=== PATIENT | male | born 1965 | race Caucasian/White ===

== ENCOUNTER 2016-07-15 14:17 | Emergency (ER) | payer OTHER ==
[~2016-07-15] VITALS: Ht 172.7 cm; Wt 81.6 kg
[~2016-07-15 14:17] MED LIST: ATIVAN1 MG PO; ATORVASTATIN CA40 MG PO; ATORVASTATIN CA80 M1 PO; ATORVASTATIN CA80 MG PO; BUPROPION HCL150 M2 PO; BUPROPION HYDR150 M1; BUPROPION HYDR150 M2 PO; CELEXA10 M1 PO; CHILDREN'S ASPI81 M1 PO; FLOMAX(MONOGRA0.4 MG PO; FOLIC ACID 1 MG PO; FOLIC ACID 1MG (1 MG; FOLIC ACID1 M1 PO; GABAPENTIN100 M2 PO; IBUPROFEN600 M1 PO; LABETALOL HYDR100 MG; LABETALOL HYDR100 MG PO; LIBRIUM10 MG PO; LIDODERM 5% PAT1 PAT EXT; LISINOPRIL10 MG PO; LISINOPRIL40 MG; LISINOPRIL40 MG PO; LORAZEPAM0.5 MG; LYRICA75 MG PO; MAG-OX 400400 MG PO; MELATONIN3 M4 PO; METOPROLOL SUCC25 M1 PO; NAPROSYN 500 M500 MG PO; NICODERM C21 MG/24 H TOP; NICODERM C7 MG/24 HR EXT; NICOTINE PATCH1 EAC3 TOP; NICOTINE T14 MG/24 H; ONE DAILY MULT1 EAC2 PO; PERCOCET 325 MG1 TA2 PO; PLAVIX 75MG TAB75 MG PO; PROAIR HFA0.09 MG/Ac INH; SPIRIVA 18 MCG18 MCG; SPIRIVA1 PUF INH; TRANDATE-NORMO200 MG PO; TYLENOL TAB 32325 MG PO; Theragran Vitamins PO; ULTRAM50 M1 PO; VITAMIN B-1100 MG PO; VITAMIN B1100 MG PO; XARELTO15 MG PO
--- NOTE | 2016-07-15 15:06 | ED PSYCHIATRIC COMPLAINT ---
History of Present Illness General Chief Complaint: ETOH/Drug Related Complaint Stated Complaint: REQ DETOX Source: patient, old records Exam Limitations: no limitations Vital Signs & Intake/Output Vital Signs & Intake/Output Vital Signs Date Time Temp Pulse Resp B/P Pulse O2 O2 Flow FiO2 Ox Delivery Rate 07/15 1945 97.6 86 18 114/57 96 Room Air 07/15 1933 97.6 86 18 114/57 07/15 1720 96.3 74 18 129/77 07/15 1718 96.3 74 18 129/77 98 Room Air 07/15 1520 97.8 72 18 127/84 07/15 1422 97.8 72 18 127/84 95 Room Air Allergies Coded Allergies: NO KNOWN ALLERGIES (10/07/14) Reconcile Medications Aspirin (Children's Aspirin) 81 MG TAB.CHEW 1 TAB PO DAILY HEART HEALTH ( Reported) Atorvastatin Calcium 80 MG TABLET 80 MG PO DAILY HYPERLIPIDEMIA Chlordiazepoxide HCl 25 MG CAPSULE 0 PO DAILY alcohol withdrawal 1 TAB PO TID DAY 1 1 TAB PO BID DAY 2 1 TAB PO X 1 DAY 3 Citalopram Hydrobromide (Celexa) 10 MG TABLET 1 TAB PO DAILY DEPRESSION Folic Acid 1 MG TABLET 1 MG PO DAILY SUPPLEMENT Gabapentin 100 MG CAPSULE 100 MG PO Q8 ANXIETY/INSOMNIA Melatonin 3 MG TABLET 3 MG PO AT BEDTIME PRN ANXIETY/INSOMNIA Metoprolol Succinate 25 MG TAB 75 MG PO BID HIGH BLOOD PRESSURE Multivitamin (One Daily Multivitamin) 1 EACH TABLET 1 TAB PO DAILY SUPPLEMENT Thiamine HCl (Vitamin B-1) 100 MG TABLET 100 MG PO DAILY SUPPLEMENT Tiotropium [place] (Spiriva) 18 MCG CAP.W.DEV 1 CAP INH DAILY PRN BREATHING ( Reported) Triage Note: PT REQUEST DETOX FROM ETOH, STATES THAT HE DRINKS A PINT OF VODKA A DAY AND THAT HE HAS NOT HAD A FUL DRINK SINCE FRIDAY, BUT ADMITS TO A NIP PRIOR TO COMING IN. LAST DETOX 3-4 MONTHS AGO AND STATES THAT HE HAS A HISTORY OF SEIZURES , PT NOTED WITH VERY MILD TREMOR IN BILATERAL HANDS AT THIS TIME. ADMITS TO SMOKING MARAJUANNA. STATES THAT HE HAS NOT BEEN DRINKING DAILY SINCE HIS LAST DETOX, BUT IS DRINKING 3-4 DAYS A WEEK Triage Nurses Notes Reviewed? yes Onset: Abrupt Duration: week(s):, constant Timing: recent history Severity: moderate Severity Numbers: 5 HPI: 51-year-old male with history of DT withdrawal seizures hypertension high cholesterol presents requesting alcohol detox. The patient states that about a pint of vodka every day for the past several years. The patient was recently admitted over the summer this past year for chest pain and alcohol detox. The patient denies any other drug use he denies suicidal or homicidal ideation. Patient denies any recent new stressors he denies depression anxiety. He denies any abdominal pain chest pain shortness of breath nausea vomiting today. He denies feeling tremulous as he states he just had a hip dylon prior to arrival (KUSUM LINDSEY) Past History Travel History Traveled to [place] past 21 day No Medical History Any Pertinent Medical History? 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 MOTHER (Brain Tumor). BROTHER (MS). Hx Contributory? No (KUSUM LINDSEY) Review of Systems Review of Systems Constitutional: Reports: no symptoms, see HPI. All Other Systems: Reviewed and Negative Comments Review of systems: See HPI, All other systems negative. Constitutional, no chills no fever, no malaise HEENT: No visual changes no sore throat no congestion Cardiovascular: No chest pain , no palpitation Skin, no rashes, no change in skin Respiratory: No dyspnea no cough no sputum GI: No nausea no vomiting, no diarrhea : No dysuria Muscle skeletal: No joint pain, no back pain, no neck pain, Neurologic: No numbness no headache Psych: No stress Heme/endocrine: No bruising no bleeding Immunology: No lymphadenopathy (KUSUM LINDSEY) Physical Exam Physical Exam General Appearance: well developed/nourished, alert, awake Neurological/Psychiatric: no motor/sensory deficits, alert, normal mood/affect, calm Comments: Well-developed well-nourished person in no acute distress HEENT: Normal EENT exam; PERRL, EOMI, HEAD is atraumatic. moist mucous membranes. Neck: Supple, normal range of motion s Back: Nontender, no CVA tenderness. Full range of motion Cardiovascular: Regular rate and rhythms no murmurs rubs Respiratory: No respiratory distress. Patient speaking in full complete sentences. Breath sounds clear to auscultation bilaterally: NO W/R/R Abdomen: Soft, nontender nondistended, no appreciable organomegaly Extremity: No edema, full range of motion of extremities Neuro: Alert oriented x3, motor sensory normal, There were no obvious focal neurologic abnormalities. Skin: No appreciable rash on exposed skin, skin is warm and dry. Psych: Mood and affect is normal, memory and judgment is normal. SAD PERSONS Done? patient not suicidal (NATHAN YIN,KUSUM) Progress Differential Diagnosis: drug intoxication, drug withdrawal, electrolyte abnormality Plan of Care: Orders Procedure Date/time Status Regular Diet 07/15 D Active CIWA 07/15 1506 Active ETHANOL 07/15 1505 Complete COMPREHENSIVE METABOLIC PANEL 07/15 1505 Complete CBC WITHOUT DIFFERENTIAL 07/15 1505 Complete Laboratory Tests 07/15/16 1514: Anion Gap 14, Estimated GFR > 60, BUN/Creatinine Ratio 21.0, Glucose 87, Calcium 9.6, Total Bilirubin 0.9, AST 29, ALT 34, Alkaline Phosphatase 59, Total Protein 6.8, Albumin 4.2, Globulin 2.6, Albumin/Globulin Ratio 1.6, CBC w Diff NO MAN DIFF REQ, RBC 4.35 L, MCV 100.4 H, MCH 34.0 H, RDW 14.6 H, MPV 7.6, Gran % 54.0, Lymphocytes % 30.8, Monocytes % 12.0 H, Eosinophils % 2.5, Basophils % 0.7, Absolute Granulocytes 3.7, Absolute Lymphocytes 2.1, Absolute Monocytes 0.8 H, Absolute Eosinophils 0.2, Absolute Basophils 0, PUBS MCHC 33.9, Serum Alcohol 178.0 07/15/16 1505: Methadone Screen Cancelled, Barbiturate Screen Cancelled, Ur Phencyclidine Scrn Cancelled, Amphetamines Screen Cancelled, U Benzodiazepines Scrn Cancelled, Urine Cocaine Screen Cancelled, Urine Cannabis Screen Cancelled Labs ordered old records reviewed, pt resting on stretcher in nad. case d/w dr pereira. Pt nontremulous at this time will continue to monitor 1710 patient resting comfortably at this time nontender appears in no apparent distress 1934 pts ciwa 0, breathlyzer 0.047, d/w pt plan of care going forward at this time pt does not meet criteria for admission however will continue to monitor to see if pt will warrant admission base on clinical exam and ciwa scores. pt would like to go home. he denies SI or hi, rx for librium taper was provided detox list provided. he will return at anytime sooner with any concerns. cleared for dc (KUSUM LINDSEY) Departure Departure Time of Disposition: 1933 Disposition: HOME OR SELF CARE Condition: Stable Clinical Impression Primary Impression: Alcohol abuse Referrals: PAVAN PATTON MD (PCP/Family) Additional Instructions: librium as directed, follow up with outpatient resources provided. librium as directed for withdrawal symptoms. Departure Forms: Customer Survey General Discharge Information Prescriptions: Current Visit Scripts Chlordiazepoxide HCl 0 PO DAILY #6 CAP 1 TAB PO TID DAY 1 1 TAB PO BID DAY 2 1 TAB PO X 1 DAY 3 (KUSUM LINDSEY) PA/WELDING EQUIPMENT SALES REPRESENTATIVE Co-Sign Statement Statement: ED Attending supervision documentation- [] I saw and evaluated the patient. I have also reviewed all the pertinent lab results and diagnostic results. I agree with the findings and the plan of care as documented in the PA's/WELDING EQUIPMENT SALES REPRESENTATIVE's documentation. [X] I have reviewed the ED Record and agree with the PA's/WELDING EQUIPMENT SALES REPRESENTATIVE's documentation. [] Additions or exceptions (if any) to the PAs/WELDING EQUIPMENT SALES REPRESENTATIVE's note and plan are summarized below: [] (CASSIDY MIRANDA,CHARLEY Elizabeth)
[2016-07-15] MEDS ORDERED: SPIRIVA18 MCG INH (15:18)
[2016-07-15 15:23] LABS: ABSOLUTE BASOPHIL COUNT 0 /CUMM (0.0-0.2); ABSOLUTE EOSINOPHIL COUNT 0.2 /CUMM (0.0-0.7); ABSOLUTE GRANULOCYTE CT 3.7 /CUMM (1.4-6.5); ABSOLUTE LYMPH COUNT 2.1 /CUMM (1.2-3.4); ABSOLUTE MONOCYTE COUNT 0.8 /CUMM (0.10-0.60); BASOPHIL % 0.7 % (0.0-2.0); EOSINOPHIL % 2.5 % (0-5); HEMATOCRIT 43.7 % (42-52); MEAN CORPUSCULAR HGB CONC 33.9 G/DL (33.0-37.0); MEAN CORPUSCULAR VOLUME 100.4 FL (80.0-94.0); MEAN PLATELET VOLUME 7.6 FL (7.4-10.4); PLATELET COUNT 150 /CUMM (130-400); RBC DISTRIBUTION WIDTH 14.6 % (11.5-14.5); RED BLOOD CELL CT 4.35 /CUMM (4.70-6.10); WHITE BLOOD CELL COUNT 6.8 /CUMM (4.8-10.8)
[2016-07-15] MEDS ORDERED: CHLORDIAZEPOXID25 M3 PO (18:32)
[2016-07-15 19:46] VITALS: BP 114/57
== END 2016-07-15 20:00 ==
LOC: ERH 14:17
PROVIDERS: Physician Assistant Medical
DX: F10.10 Alcohol abuse, uncomplicated (principal)
CPT/HCPCS: 80307; G0480

== ENCOUNTER 2016-11-10 13:07 | Emergency (ER) | payer OTHER ==
[~2016-11-10] VITALS: Ht 175.3 cm; Wt 81.6 kg
[~2016-11-10 13:07] MED LIST changes: +CHLORDIAZEPOXID25 M3 PO; +SPIRIVA18 MCG INH
--- NOTE | 2016-11-10 13:41 | ED PSYCHIATRIC COMPLAINT ---
See Addendum History of Present Illness General Chief Complaint: ETOH/Drug Related Complaint Stated Complaint: PT REQUESTING ETOH DETOX Source: patient Exam Limitations: no limitations, intoxication Vital Signs & Intake/Output Vital Signs & Intake/Output Vital Signs Date Time Temp Pulse Resp B/P B/P Pulse O2 O2 Flow FiO2 Mean Ox Delivery Rate 11/10 1710 96.1 99 16 146/85 11/10 1710 96.1 99 16 146/85 97 Room Air 11/10 1531 Room Air 11/10 1314 97.6 110 18 186/105 95 Room Air Room Air Allergies Coded Allergies: NO KNOWN ALLERGIES (10/07/14) Reconcile Medications Aspirin (Children's Aspirin) 81 MG TAB.CHEW 1 TAB PO DAILY HEART HEALTH ( Reported) Atorvastatin Calcium 80 MG TABLET 80 MG PO DAILY HYPERLIPIDEMIA Chlordiazepoxide HCl 25 MG CAPSULE 0 PO DAILY alcohol withdrawal 1 TAB PO TID DAY 1 1 TAB PO BID DAY 2 1 TAB PO X 1 DAY 3 Citalopram Hydrobromide (Celexa) 10 MG TABLET 1 TAB PO DAILY DEPRESSION Folic Acid 1 MG TABLET 1 MG PO DAILY SUPPLEMENT Gabapentin 100 MG CAPSULE 100 MG PO Q8 ANXIETY/INSOMNIA Melatonin 3 MG TABLET 3 MG PO AT BEDTIME PRN ANXIETY/INSOMNIA Metoprolol Succinate 25 MG TAB 75 MG PO BID HIGH BLOOD PRESSURE Multivitamin (One Daily Multivitamin) 1 EACH TABLET 1 TAB PO DAILY SUPPLEMENT Thiamine HCl (Vitamin B-1) 100 MG TABLET 100 MG PO DAILY SUPPLEMENT Tiotropium [place] (Spiriva) 18 MCG CAP.W.DEV 1 CAP INH DAILY PRN BREATHING ( Reported) Triage Note: TRIAGE: 51 Y/O MALE PREENTSW REQUESTING ETOH DETOX. "I NEED TO BE DOWNSTAIRS." DENIES ILLICIT DRUG USE. DENIES SIUCIDALITY OR HOMICIDALITY. LAST DRINK: 2 HOURS AGO; 1/2 PINT VODKA 100 PROOF. DENIES HISTORY OF WITHDRAWAL SEIZURES. Triage Nurses Notes Reviewed? yes Onset: Abrupt Duration: week(s): Timing: recent history HPI: 01/10/17 2 PM 51-year-old man presents to the emergency department for assistance with alcohol detox. The patient states that he's been drinking daily for approximately the past 2 months. He says that he does smoke and drinks every day. He says that he was discharged from [facility] approximately 2 months ago where he did have a inpatient detox. He says he's been pretty much drinking everyday since then. His last drink was earlier today. There is no history of seizures or DTs. He does have a history of blackouts. He says that he also has a past medical history of high blood pressure, he says he is on a blood thinner. He also thinks that he has a history of irregular heartbeat but he cannot be sure. The onset of the symptoms was abrupt, the duration was months, the severity is significant as his symptoms required him to come to the emergency department for care Past History Travel History Traveled to [facility] past 21 day No Medical History Any Pertinent Medical History? 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 MOTHER (Brain Tumor). BROTHER (MS). Hx Contributory? No Review of Systems Review of Systems Constitutional: Denies: fever. EENTM: Reports: no symptoms. Respiratory: Denies: short of breath. Cardiovascular: Denies: chest pain. GI: Denies: abdominal pain. Genitourinary: Reports: no symptoms. Musculoskeletal: Reports: no symptoms. Skin: Denies: rash. Neurological/Psychological: Reports: no symptoms. Hematologic/Endocrine: Reports: no symptoms. Physical Exam Physical Exam General Appearance: alert, awake, anxious, moderate distress Head: atraumatic, normal appearance Eyes: Bilateral: normal appearance, PERRL, EOMI. Ears, Nose, Throat: normal pharynx, normal ENT inspection Neck: normal inspection, supple, full range of motion Respiratory: normal breath sounds, chest non-tender, no respiratory distress Cardiovascular: regular rate/rhythm Gastrointestinal: non-tender Neurological/Psychiatric: no motor/sensory deficits, awake, alert, anxious Appearance/Memory/Insight: appropriate appearance, appropriate insight Behavoir/Eye Contact/Speech: cooperative Thoughts/Hallucinations: normal thought pattern, no apparent hallucination Skin: intact, normal color, warm/dry SAD PERSONS SAD PERSONS Response Value Male Sex? yes 1 Age <19 or >45 years? yes 1 Excessive Ethanol/Drug Use? yes 1 Social Support? has support 0 Total 3 SAD PERSONS Done? yes, patient not suicidal Progress Differential Diagnosis: drug intoxication, drug overdose, drug withdrawal Plan of Care: Orders Procedure Date/time Status Add-on Test (ER Only) 11/11 1351 Active URINE DRUG SCREEN FOR ER ONLY 11/11 1351 Complete CIWA 11/10 1350 Active TROPONIN LEVEL 11/10 1350 Complete MAGNESIUM 11/10 1350 Complete ETHANOL 11/10 1350 Complete COMPREHENSIVE METABOLIC PANEL 11/10 1350 Complete CBC WITHOUT DIFFERENTIAL 11/10 1350 Complete AMYLASE 11/10 1350 Complete Laboratory Tests 11/10/16 1514: Anion Gap 13, Estimated GFR > 60, BUN/Creatinine Ratio 23.8, Glucose 98, Calcium 9.4, Magnesium 1.6, Total Bilirubin 0.8, AST 383 H, ALT 400 H, Alkaline Phosphatase 59, Troponin I < 0.01, Total Protein 7.0, Albumin 4.4, Globulin 2.6, Albumin/Globulin Ratio 1.7, Amylase 68, CBC w Diff NO MAN DIFF REQ, RBC 4.61 L, MCV 97.3 H, MCH 32.5 H, RDW 15.6 H, MPV 7.7, Gran % 68.3, Lymphocytes % 19.5 L, Monocytes % 9.1, Eosinophils % 2.6, Basophils % 0.5, Absolute Granulocytes 3.9, Absolute Lymphocytes 1.1 L, Absolute Monocytes 0.5, Absolute Eosinophils 0.1, Absolute Basophils 0, PUBS MCHC 33.4, Serum Alcohol 87.0 11/10/16 1445: Urine Opiates Screen < 100.00, Methadone Screen < 40, Barbiturate Screen < 60, Ur Phencyclidine Scrn < 6.00, Amphetamines Screen 177, U Benzodiazepines Scrn < 85, Urine Cocaine Screen < 50, Urine Cannabis Screen 79.20 H Initial ED EKG: none Comments: 11/10/16 5:10 pm The patient is awake alert and oriented 3. No significant tremors. Awaiting CIWA score. Alcohol level was only 87. Elevation in transaminases. The patient was informed that the decision for inpatient treatment is based upon his CIWA score. The patient was signed out to Alan Nick. He will likely be discharged. Departure Departure Disposition: STILL A PATIENT Condition: Stable Clinical Impression Primary Impression: Alcohol dependency Referrals: PAVAN PATTON MD (PCP/Family) Departure Forms: Customer Survey General Discharge Information
[2016-11-10 15:42] LABS: ABSOLUTE BASOPHIL COUNT 0 /CUMM (0.0-0.2); ABSOLUTE EOSINOPHIL COUNT 0.1 /CUMM (0.0-0.7); ABSOLUTE GRANULOCYTE CT 3.9 /CUMM (1.4-6.5); ABSOLUTE LYMPH COUNT 1.1 /CUMM (1.2-3.4); ABSOLUTE MONOCYTE COUNT 0.5 /CUMM (0.10-0.60); BASOPHIL % 0.5 % (0.0-2.0); EOSINOPHIL % 2.6 % (0-5); GRANULOCYTE % 68.3 % (42.2-75.2); HEMATOCRIT 44.8 % (42-52); MEAN CORPUSCULAR HGB 32.5 PG (27.0-31.0); MEAN CORPUSCULAR HGB CONC 33.4 G/DL (33.0-37.0); MEAN CORPUSCULAR VOLUME 97.3 FL (80.0-94.0); MEAN PLATELET VOLUME 7.7 FL (7.4-10.4); PLATELET COUNT 120 /CUMM (130-400); RBC DISTRIBUTION WIDTH 15.6 % (11.5-14.5); RED BLOOD CELL CT 4.61 /CUMM (4.70-6.10); WHITE BLOOD CELL COUNT 5.7 /CUMM (4.8-10.8)
[2016-11-10 17:10] VITALS: BP 146/85
[2016-11-10] MEDS ORDERED: ZOFRAN ODT4 M1 SL (17:28)
[2016-11-10] MEDS ORDERED: ATIVAN1 M1 PO (17:28)
== END 2016-11-10 17:52 ==
LOC: ERH 13:07
PROVIDERS: Emergency Medicine
DX: F10.20 Alcohol dependence, uncomplicated (principal)
CPT/HCPCS: 80307; G0480

== ENCOUNTER 2016-12-11 14:39 | Observation (INO) | payer OTHER ==
[~2016-12-11] VITALS: Ht 175.3 cm; Wt 81.6 kg
[~2016-12-11 14:39] MED LIST changes: +ATIVAN1 M1 PO; +ZOFRAN ODT4 M1 SL
--- NOTE | 2016-12-11 15:16 | NUR ---
PT STATES THAT AROUND 2 HOURS AGO HIS L SIDE STARTED TO FEEL WEIRD AND HIS LEGS GAVE OUT AND HE FELL, STATES THAT HE FELL FRIDAY AND WAS SEEN AT [facility]. PT NOTED WITH ABRASIONS THAT HE WAS SEEN FOR FRIDAY. PT COMPLAINS THAT HE HAD CP AT THE SAME TIME AND HAS A LITTLE AT THIS TIME.
--- NOTE | 2016-12-11 15:28 | ED GENERAL ADULT ---
History of Present Illness General Chief Complaint: General Adult Stated Complaint: L SIDE NUMBNESS, FALL SAT AM Source: patient Exam Limitations: no limitations Vital Signs & Intake/Output Vital Signs & Intake/Output Vital Signs Date Time Temp Pulse Resp B/P B/P Pulse O2 O2 Flow FiO2 Mean Ox Delivery Rate 12/11 1730 98.0 78 18 142/78 12/11 1729 98.0 74 18 142/78 97 Room Air 12/11 1545 95 19 115/65 96 Room Air 12/11 1514 98.1 92 18 120/78 95 Room Air Allergies Coded Allergies: NO KNOWN ALLERGIES (10/07/14) Reconcile Medications Albuterol Sulfate (Proventil Hfa) 90 MCG HFA.AER.AD 2 PUF INH PRN RESPIRATORY (Reported) Aspirin (Children's Aspirin) 81 MG TAB.CHEW 1 TAB PO DAILY HEART/BLOOD ( Reported) Atorvastatin Calcium 80 MG TABLET 80 MG PO DAILY HYPERLIPIDEMIA Budesonide/Formoterol Fumarate (Symbicort 80-4.5 Mcg Inhaler) 80 MCG-4.5 MCG/ ACTUATION HFA.AER.AD 2 PUF INH BID RESPIRATORY (Reported) Citalopram Hydrobromide (Citalopram HBr) 40 MG TABLET 1 TAB PO DAILY MENTAL HEALTH (Reported) Folic Acid 1 MG TABLET 1 TAB PO DAILY SUPPLEMENT (Reported) Metoprolol Succinate 200 MG TAB.ER.24H 1 TAB PO DAILY HEART/BP (Reported) Tiotropium [place] (Spiriva) 18 MCG CAP.W.DEV 1 CAP INH DAILY PRN BREATHING ( Reported) Triage Note: PT STATES THAT AROUND 2 HOURS AGO HIS L SIDE STARTED TO FEEL WEIRD AND HIS LEGS GAVE OUT AND HE FELL, STATES THAT HE FELL FRIDAY AND WAS SEEN AT [facility]. PT NOTED WITH ABRASIONS THAT HE WAS SEEN FOR FRIDAY. PT COMPLAINS THAT HE HAD CP AT THE SAME TIME AND HAS A LITTLE AT THIS TIME. Triage Nurses Notes Reviewed? yes Onset: Abrupt Duration: week(s): Timing: recent history HPI: 12/11/16 4:37 PM 51-year-old male presents to the emergency department complaining of left sided vibration sensations along his leg and left upper extremity. The patient states he's also been falling. And is having weakness and difficulty walking. He fell off his back stoop several days ago and was treated at [facility]. He had a CT scan of his head and an x-ray of his left hand. He does have a left hand fracture. Now he says he is continuing to have the vibration sense and is concerned so he came to the emergency department. He is also having intermittent chest pressure. The onset of the symptoms has been abrupt, the duration has been weeks really, the severity significant; as her symptoms required him to come to the emergency department for care. He has associated left sided vibration sensations, intermittent chest pressure, and has been falling/ Past History Travel History Traveled to [place] past 21 day No Medical History Any Pertinent Medical History? 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 MOTHER (Brain Tumor). BROTHER (MS). Hx Contributory? Yes (FHX OF MS BROTHER AND SISTER) Review of Systems Review of Systems Constitutional: Denies: fever. EENTM: Reports: no symptoms. Respiratory: Reports: no symptoms. Cardiovascular: Reports: no symptoms. GI: Reports: no symptoms. Genitourinary: Reports: no symptoms. Musculoskeletal: Reports: see HPI. Skin: Denies: rash. Neurological/Psychological: Denies: headache. Hematologic/Endocrine: Reports: no symptoms. Physical Exam Physical Exam General Appearance: alert, awake, anxious, mild distress Head: atraumatic, normal appearance Eyes: Bilateral: normal appearance, PERRL, EOMI. Ears, Nose, Throat: normal pharynx, normal ENT inspection Neck: normal inspection, supple Respiratory: normal breath sounds, chest non-tender Cardiovascular: regular rate/rhythm Peripheral Pulses: 4+ brachial (L), 4+ radial (R) Gastrointestinal: soft, non-tender Back: normal range of motion Extremities: no edema Neurologic/Psych: awake, alert, oriented x 3, motor weakness, SLIGHT LEFT FACIAL WEAKNSESS Skin: intact, normal color, warm/dry Core Measures ACS in differential dx? Yes ASA ordered for poss ACS? Yes-ordered CVA/TIA Diagnosis: No Severe Sepsis Present: No Septic Shock Present: No Bedside Swallow Eval Done: Yes (+ GAG , SWALLOWS WATER) Progress Differential Diagnoses I considered the following diagnoses in my evaluation of the patient: [TIA, CVA, acute coronary syndrome, MS, alcohol intoxication, adverse drug reaction, alcohol withdrawal, Wernicke's , korsakoff syndrome] Plan of Care: Orders Procedure Date/time Status Heart Healthy Diet 12/12 B Active LACTIC ACID 12/[address] in observation 12/11 181 Active Vital Signs 12/11 181 Active Code Status 12/11 181 Active Add-on Test (ER Only) 12/11 1702 Active LACTIC ACID 12/11 1551 Complete TROPONIN LEVEL 12/11 1547 Active D-DIMER 12/11 1547 Active ETHANOL 12/11 1534 Complete TROPONIN LEVEL 12/11 1517 Complete COMPREHENSIVE METABOLIC PANEL 12/11 1517 Complete CBC WITHOUT DIFFERENTIAL 12/11 1517 Complete EKG 12/11 1517 Active Laboratory Tests 12/11/16 1628: RBC 4.51 L, MCV 97.2 H, MCH 32.8 H, RDW 16.8 H, MPV 8.0, Gran % 66.1, Lymphocytes % 20.9, Monocytes % 9.4 H, Eosinophils % 2.6, Basophils % 1.0, Absolute Granulocytes 4.0, Absolute Lymphocytes 1.2, Absolute Monocytes 0.6, Absolute Eosinophils 0.2, Absolute Basophils 0.1, PUBS MCHC 33.7 12/11/16 1602: Lactic Acid 1.8 12/11/16 1534: Anion Gap 15, Estimated GFR > 60, BUN/Creatinine Ratio 30.0 H, Glucose 137 H, Calcium 9.5, Total Bilirubin 0.7, AST 73 H, ALT 72, Alkaline Phosphatase 71, Troponin I < 0.01, Total Protein 6.8, Albumin 4.4, Globulin 2.4, Albumin/ Globulin Ratio 1.8, D-Dimer High Sensitivty Cancelled, Serum Alcohol 119.0 Initial ED EKG: NSR Prior EKG: unchanged Departure Departure Disposition: STILL A PATIENT Condition: Stable Clinical Impression Primary Impression: Chest pain Secondary Impressions: Paresthesia Referrals: PAVAN PATTON MD (PCP/Family) Departure Forms: Customer Survey General Discharge Information Observation Note Spoke With: MICHAEL KHAN MD Physician Advisor Notified: HUGH MIRANDA,JR Elizabeth Place Patient In: Non-ED OBS Care Area Rationale for Observation: My rational for observation is as follows [the patient has left-sided facial weakness and intermittent chest pain. Diagnostic considerations include TIA, CVA, acute coronary syndrome he does also have a history of alcohol dependency. He is being placed in observation for serial troponins, neurological evaluations every 6 hours, MRI of the head in the a.m. consider neurology consultation CIWA scores]. Critical Care Note Critical Care Note Critical Care Time: non-applicable
--- NOTE | 2016-12-11 15:35 | NUR ---
PT TO ROOM 2 LABS DRAWN BY KERWIN AND MD SPENCER AT BEDSIDE TO DELIA
--- NOTE | 2016-12-11 15:36 | NUR ---
BLOOD DRAWN AND SENT TO LAB. SST,LAV,BLUE.
[2016-12-11] MEDS ORDERED: CITALOPRAM HBR40 MG PO (15:44)
[2016-12-11] MEDS ORDERED: METOPROLOL SUC200 M2 PO (15:45)
[2016-12-11] MEDS ORDERED: PROVENTIL HFA6.7 GM INH (15:47)
[2016-12-11] MEDS ORDERED: SYMBICORT 80-10.2 GM INH (15:47)
--- NOTE | 2016-12-11 15:47 | NUR ---
DURING MD EVALUATION PT NOTED TO HAVE SOME DIFFICULTY WHEN SMILING WITH A SLIGHT LT SIDE DROOP AND DIFFICULTY TOUCHING NOSE AFTER TOUCHING PROVIDERS INDEX FINGER DURING STROKE ASSESSMENT. PT ALSO C/O DIZZINESS WITH STITING UP AND ORTHOSTATIC COMPLETED
[2016-12-11] MEDS ORDERED: FOLIC ACID1 M1 PO (15:49)
--- NOTE | 2016-12-11 16:30 | NUR ---
CBC REDRAWN AND SENT TO LAB.
[2016-12-11 16:36] LABS: ABSOLUTE BASOPHIL COUNT 0.1 /CUMM (0.0-0.2); ABSOLUTE EOSINOPHIL COUNT 0.2 /CUMM (0.0-0.7); ABSOLUTE LYMPH COUNT 1.2 /CUMM (1.2-3.4); ABSOLUTE MONOCYTE COUNT 0.6 /CUMM (0.10-0.60); EOSINOPHIL % 2.6 % (0-5); GRANULOCYTE % 66.1 % (42.2-75.2); HEMATOCRIT 43.8 % (42-52); MEAN CORPUSCULAR HGB 32.8 PG (27.0-31.0); MEAN CORPUSCULAR HGB CONC 33.7 G/DL (33.0-37.0); MEAN CORPUSCULAR VOLUME 97.2 FL (80.0-94.0); PLATELET COUNT 143 /CUMM (130-400); RBC DISTRIBUTION WIDTH 16.8 % (11.5-14.5); RED BLOOD CELL CT 4.51 /CUMM (4.70-6.10)
--- NOTE | 2016-12-11 16:38 | CT SCAN REPORT ---
EXAMINATION: CT HEAD WITHOUT CONTRAST CLINICAL INFORMATION: Left-sided paresthesias. Evaluate for cerebrovascular accident. COMPARISON: CT head 03/28/2008 TECHNIQUE: Contiguous axial imaging was performed from the skull base to vertex without intravenous administration of contrast. DLP: 618.18 mGy-cm FINDINGS: There are numerous foci of ill-defined hypoattenuation within the periventricular white matter that most likely represent a chronic manifestation of small vessel ischemia. Browning-white matter differentiation is grossly preserved and there is no evidence of acute territorial infarct. No acute intracranial hemorrhage or abnormal extra axial collection. No intracranial mass effect or midline shift. Lateral and third ventricles are proportionate to the subarachnoid spaces. No hydrocephalus. The calvarium and skull base are intact. There is a trace right mastoid tip effusion. Paranasal sinuses are well-aerated with the exception of mild to moderate disease within the left maxillary sinus. IMPRESSION: There are numerous chronic small vessel ischemic changes within the periventricular white matter. No evidence of acute territorial infarct or hemorrhage.
--- NOTE | 2016-12-11 16:55 | RADIOLOGY REPORT ---
EXAMINATION: XR PORTABLE CHEST CLINICAL INFORMATION: Chest pain. COMPARISON: Chest x-ray 06/07/2016. TECHNIQUE: Portable frontal view of the chest was obtained. FINDINGS: The lungs are well-expanded and clear without focal airspace consolidation. No pleural effusions or pneumothoraces are identified. Cardiomediastinal contours are within normal limits. Soft tissues are unremarkable. No acute osseous abnormality is identified. IMPRESSION: No acute pulmonary process.
[2016-12-11 17:30] VITALS: BP 142/78
--- NOTE | 2016-12-11 17:34 | NUR ---
PT PERSONALLY DISCONTINUED HIS CAST TO HIS LEFT HAND
--- NOTE | 2016-12-11 18:16 | NUR ---
PT NOW STS THAT HE HAS WITHDRAWN IN THE PAST WITH ETOH BUT NO SIEZURES BUT CAN GET VERY TREMULOUS. MD AT BEDSIDE TO DISCUSS POC.
[2016-12-11 18:29] VITALS: BP 166/76
--- NOTE | 2016-12-11 18:31 | NUR ---
PT MEDICATED ORDERED
--- NOTE | 2016-12-11 19:56 | NUR ---
PT HAS A BED 185-82
--- NOTE | 2016-12-11 20:00 | NUR ---
HOUSE STAFF AT TO EVAL PT
--- NOTE | 2016-12-11 21:00 | NUR ---
ATTEMPT TO GIVE REPORT UNSUCCESSFUL
[2016-12-11 21:05] VITALS: BP 141/56
--- NOTE | 2016-12-11 21:15 | NUR ---
URINE TRIO SENT TO LAB.
--- NOTE | 2016-12-11 21:20 | History & Physical ---
NOLA JAVIER 12/11/162118: General Information and HPI MD Statement: I have seen and personally examined CÉSAR DICKEY and documented this H&P. The patient is a 51 year old M who presented with a patient stated chief complaint of chest pressure Source of Information: patient, old records Exam Limitations: no limitations History of Present Illness: 50 year old gentleman, current smoker, with PMH significant for hypertension, hyperlipidemia, CAD with RCA stent (2012), Severe peripheral vascular disease- status post aorto bifemoral bypass with that graft 2013,pulmonary HTN, and small PE (2015) initially started on xarelto (stopped due to non compliance) , history of cardiac thrombus, left lower extremity emboli s/p embolectomy, status post cardiac arrest (2003), COPD, Alcohol use disorder brought for evaluation of chest pressure and weakness. At 10 AM today he was bringing up boxes off shirts up the stairs when he suddenly felt weak and had nonradiating pressure-like chest pain substernally. Was associated with some dizziness and diaphoresis. He was able to sit down and this episode lasted about 15 minutes after which she felt improved and resumed working again however he continued feels weak and stated that his walk was off- balance more like "waddling" stated that he seemed like he was drunk to others. He was then brought to the ER around 10:30am. Denied any palpitations, headaches, vision changes, difficulty swallowing, tingling numbness, slurring of speech, shortness of breath, palpitations, bowel and bladder symptoms and syncope. On Friday he was walking out of his house and going down the stairs where when he lost balance and fell down and his head at the sidewalk at this time he lost consciousness and came to when he was taken to the ambulance to [facility]. Stated there was no preceding warning signs that he noticed. He was aware that his back right foot dragged ,which caused him to trip over the stairs. He was discharged from [facility] same day. Patient reports the dizziness is chronic since the past few years however the dizziness has gone worse since recently and is usually on [place] positions from sitting to standing. He also reports that since the past one year he is also has slurring of his speech please once a day. His paired balance is also chronic and usually occurs when he has tingling or numbness of his lower extremities at which time he states that he's not able to feel the floor. His other chronic issue is impotence since the past couple of years. Prior to the fall on Friday states that he hasn't fallen before. Stated that his last drink was Friday however to the attending and resident he stated that last drink was yesterday which was 2 pints of vodka. He is also noncompliant with medical follow-ups. Allergies/Medications Allergies: Coded Allergies: NO KNOWN ALLERGIES (10/07/14) Home Med list Albuterol Sulfate (Proventil Hfa) 90 MCG HFA.AER.AD 2 PUF INH PRN RESPIRATORY (Reported) Aspirin (Children's Aspirin) 81 MG TAB.CHEW 1 TAB PO DAILY HEART/BLOOD ( Reported) Atorvastatin Calcium 80 MG TABLET 80 MG PO DAILY HYPERLIPIDEMIA Budesonide/Formoterol Fumarate (Symbicort 80-4.5 Mcg Inhaler) 80 MCG-4.5 MCG/ ACTUATION HFA.AER.AD 2 PUF INH BID RESPIRATORY (Reported) Citalopram Hydrobromide (Citalopram HBr) 40 MG TABLET 1 TAB PO DAILY MENTAL HEALTH (Reported) Folic Acid 1 MG TABLET 1 TAB PO DAILY SUPPLEMENT (Reported) Metoprolol Succinate 200 MG TAB.ER.24H 1 TAB PO DAILY HEART/BP (Reported) Tiotropium [place] (Spiriva) 18 MCG CAP.W.DEV 1 CAP INH DAILY PRN BREATHING ( Reported) Compliance With Home Meds: UNKNOWN Past History Travel History Traveled to [place] past 21 day No Medical History Neurological: NONE EENT: NONE Cardiovascular: CAD, hypertension, hyperlipidemia (PVD) Respiratory: asthma Gastrointestinal: NONE Hepatic: NONE Renal: NONE Musculoskeletal: NONE Psychiatric: alcohol dependence Endocrine: NONE Blood Disorders: NONE PSYCH ASSISTANT/Reproductive: NONE Other Medical Hx: Coronary artery disease, hypertension, hyperlipidemia, alcohol abuse, alcohol withdrawal seizures, leg claudication, peripheral vascular disease History of MRSA: No History of VRE: No History of CDIFF: No Surgical History Surgical History: none Past Family/Social History Family History Relations & Conditions if any FATHER (Colon cancer). MOTHER (Brain Tumor). BROTHER (MS). Psychosocial History Where do you live? Home Who Do You Live With? spouse Services at Home: None Primary Language: Kazakh ETOH Use: alcoholic Illicit Drug Use: denies illicit drug use Functional Ability ADLs Independent: dressing, eating, toileting, bathing. Ambulation: independent IADLs Independent: shopping, housework, finances, food prep, telephone, transportation , medication admin. Review of Systems Review of Systems Constitutional: Reports: weakness. Denies: chills, diaphoresis, fever, malaise, unexplained weight loss. Cardiovascular: Reports: chest pain. Denies: edema, orthopena, palpitations, peripheral edema, syncope. Respiratory: Denies: cough, hemoptysis, orthopnea, short of breath, sputum production, stridor, wheezing. GI: Denies: abdominal pain, bloating, constipation, diarrhea, distention, bowel incontinence, melena, nausea, bloody stool, changes in stool, vomiting, steatorrhea. Genitourinary: Denies: discharge, dysuria, frequency, hematuria, hesitation, nocturia, pain, urgency. Musculoskeletal: Denies: back pain, gout, joint pain, joint swelling, muscle pain, muscle stiffness, neck pain. Exam & Diagnostic Data Last 24 Hrs of Vital Signs/I&O Vital Signs Date Time Temp Pulse Resp B/P B/P Pulse O2 O2 Flow FiO2 Mean Ox Delivery Rate 12/11 2346 97.4 78 12 130/74 96 Room Air / 2105 98.1 85 18 141/56 / 2105 98.1 85 18 141/56 97 Room Air / 1831 98.2 78 18 166/76 97 Room Air / 1829 98.2 74 18 166/76 / 1730 98.0 78 18 142/78 / 1729 98.0 74 18 142/78 97 Room Air 06/07 1545 95 19 115/65 96 Room Air /07 1514 98.1 92 18 120/78 95 Room Air Intake & Output 08 0800 06/08 0000 12/11 1600 Intake Total Output Total Balance Patient 180 lb 180 lb Weight Physical Exam General Appearance Alert, Oriented X3, Cooperative, No Acute Distress Skin No Breakdown, No Significant Lesion Skin Temp/Moisture Exam: Warm/Dry HEENT Atraumatic, PERRLA, EOMI, Mucous Membr. moist/pink Neck Supple, No thryomegaly, +2 Carotid Pulse wo Bruit Lymphatic Cervical nl Cardiovascular Regular Rate, Normal S1, Normal S2, No Murmurs Lungs b/l exp wheezing Abdomen Soft, No Tenderness, distended, right inguinal hernia Neurological Normal Gait, Normal Speech, Strength at 5/5 X4 Ext, Normal Tone, Sensation Intact, Cranial Nerves 3-12 NL, Reflexes 2+ Extremities No Edema, Normal Pulses, right hand moderate swelling Vascular Normal Pulses, Pulses Symmetrical Last 24 Hrs of Labs/Simeon: Laboratory Tests 12/11/16 2111: Urine Opiates Screen < 100.00, Methadone Screen 43, Barbiturate Screen < 60, Ur Phencyclidine Scrn < 6.00, Amphetamines Screen 226, U Benzodiazepines Scrn < 85, Urine Cocaine Screen < 50, Urine Cannabis Screen < 5.00, Urinalysis LIGHT H, Urine Color YEL, Urine Clarity CLEAR, Urine pH 5.5, Ur Specific [place] 1.025, Urine Protein TRACE H, Urine Ketones NEG, Urine Nitrite NEG, Urine Bilirubin NEG, Urine Urobilinogen 0.2, Ur Leukocyte Esterase NEG, Ur Microscopic SEDIMENT EXAMINED, Urine WBC RARE, Urine Mucus MANY H, Urine Hemoglobin NEG, Urine Glucose NEG 12/11/16 1628: RBC 4.51 L, MCV 97.2 H, MCH 32.8 H, RDW 16.8 H, MPV 8.0, Gran % 66.1, Lymphocytes % 20.9, Monocytes % 9.4 H, Eosinophils % 2.6, Basophils % 1.0, Absolute Granulocytes 4.0, Absolute Lymphocytes 1.2, Absolute Monocytes 0.6, Absolute Eosinophils 0.2, Absolute Basophils 0.1, PUBS MCHC 33.7 12/11/16 1602: Lactic Acid 1.8 12/11/16 1534: Anion Gap 15, Estimated GFR > 60, BUN/Creatinine Ratio 30.0 H, Glucose 137 H, Calcium 9.5, Total Bilirubin 0.7, AST 73 H, ALT 72, Alkaline Phosphatase 71, Troponin I < 0.01, Total Protein 6.8, Albumin 4.4, Globulin 2.4, Albumin/ Globulin Ratio 1.8, Amylase 109, Lipase 234, Vitamin B12 424, Folate 11.7, TSH 1.140, D-Dimer High Sensitivty Cancelled, Serum Alcohol 119.0 Diagnostic Data EKG Results NSR, type 1 block (DE 172) CXR Results FINDINGS: The lungs are well-expanded and clear without focal airspace consolidation. No pleural effusions or pneumothoraces are identified. Cardiomediastinal contours are within normal limits. Soft tissues are unremarkable. No acute osseous abnormality is identified. IMPRESSION: No acute pulmonary process. Other Results FINDINGS: There are numerous foci of ill-defined hypoattenuation within the periventricular white matter that most likely represent a chronic manifestation of small vessel ischemia. Browning-white matter differentiation is grossly preserved and there is no evidence of acute territorial infarct. No acute intracranial hemorrhage or abnormal extra axial collection. No intracranial mass effect or midline shift. Lateral and third ventricles are proportionate to the subarachnoid spaces. No hydrocephalus. The calvarium and skull base are intact. There is a trace right mastoid tip effusion. Paranasal sinuses are well-aerated with the exception of mild to moderate disease within the left maxillary sinus. IMPRESSION: There are numerous chronic small vessel ischemic changes within the periventricular white matter. No evidence of acute territorial infarct or hemorrhage. SERVICE DATE: 12/11/16-2019 EXAM TYPE: RAD - XRY-HAND, LEFT FINDINGS: Multiple views of the left hand demonstrate an acute angulated fracture involving the fifth metacarpal neck of the left hand with associated volar angulation of the distal metacarpal fracture fragment relative to the proximal right metacarpal fracture fragments. No additional fractures of the left hand are identified. There is minimal joint space narrowing involving the proximal and distal interphalangeal joints. There is moderate soft tissue swelling along the dorsum of the left hand. No radiopaque foreign bodies are identified. IMPRESSION: Acute fracture involving the neck of the fifth metacarpal bone of the left hand with volar angulation of the distal fracture fragment relative to the proximal fracture fragment. Moderate soft tissue swelling along the dorsum of the hand. Assessment/Plan Assessment: 50 year old gentleman, current smoker, with PMH significant for hypertension, hyperlipidemia, CAD with RCA stent (2012), Severe peripheral vascular disease- status post aorto bifemoral bypass with that graft 2013,pulmonary HTN, and small PE (2015) initially started on xarelto (stopped due to non compliance) , history of cardiac thrombus, left lower extremity emboli s/p embolectomy, status post cardiac arrest (2003), COPD, Alcohol use disorder with multiple admissions in the past for detox, brought for evaluation of chest pressure and weakness. Utox showed ETOH level of 119, CT head r/o ICH, shift, CXR showed no acute pathology. Xray of hand significant for Acute fracture involving the neck of the fifth metacarpal bone of the left hand with volar angulation of the distal fracture fragment relative to the proximal fracture fragment. Moderate soft tissue swelling along the dorsum of the hand. Prob list: dizziness/intermittant impaired balance ( orthostatic vs peripheral neuropathy vs post. cerebellar stroke) chest pressure acute fracture of left hand peripheral vascular disease ETOH withdrawal COPD current smoker plan admitt to tele for continuous cardiac monitoring and q2 neurochecks r/o ACS by trending trop and EKG at this time there is very low suspicion for TIA, no focal deficits noted on clinical exam, ABCD2 score is 0, 1% chance of stroke in the next 48 hours, will continue to monitor closely and if indicated will get neurology service involved. tsh, folate and Vit B12 wnl follow up echo Continue aspirin, metoprolol and statin. follow up lipid panel, HbA1c cardio to be placed in morning with Dr. Lindsay ortho consult placed,spoke to surgical PA regarding splint placement, pain control with tramadol q6prn TRC, nebs Ativan per CIWA protocol, MVI, dvt ppx with lovenox passed swallow eval , will place on heart [employer] diet smoking cessation counselling Full code. As Ranked By This Provider Problem List: 1. Hypertension 2. Hyperlipidemia 3. Alcohol withdrawal 4. S/P aorto-bifemoral bypass surgery 5. Hand fracture Core Measures/Miscellaneous Acute Coronary Syndrome ACS Diagnosis: No Cerebrovascular Accident CVA/TIA Diagnosis: No Bedside Swallow Eval Done: Yes (+ GAG , SWALLOWS WATER) Congestive Heart Failure CHF Diagnosis: No VTE (View Protocol) VTE Risk Factors: Age > 40 No [facility] VTE prophylaxis d/t: No contraindications No VTE Pharm Prophylaxis d/t: No contraindications VTE Diagnosis: No VTE Type: NONE VTE Confirmed by (Test): NONE Sepsis (View Protocol) Severe Sepsis Present: No Septic Shock Septic Shock Present: No Miscellaneous Documentation Attending Case Discussed With: MICHAEL KHAN MD Primary Care Physician: KEMAL PATTON MDBHA Patient sees these Specialists Dr. Lindsay Level of Patient Care: Telemetry HARVINDER KHAN MD 12/12/16 0351: Attending Review Statement Attending Statement Attending Statement: examined this patient, discuss w/resident/PA/HYDROELECTRIC STATION OPERATOR, agreed w/resident/PA/HYDROELECTRIC STATION OPERATOR Attending Assessment/Plan: 51 yo M smoker, with h/o alcohol abuse, HTN, CAD s/p stent, severe PVD s/p aorta bifemoral bypass, pulmonary HTN, previous PE not compliant with AC, cardiac thrombus ?cardiac arrest (2004), COPD, last admitted to [facility] (Feb 2016) for alcohol withdrawal came to ER for evaluation of chest pressure that started today, and ongoing bilateral LE and left upper extremity tingling numbness for past few years. He reports slurring of speech today but denies facial droop or left sided paralysis. No headaches or vision changes. He was sober for 3 months after his last detox in Feb 2016, but started drinking again 2 pints of Vodka daily. He was subsequently detoxed at [facility] and [facility] winter of 2015-. He resumed drinking, last drink was yesterday. He is not sure if he has a h/o withdrawal seizures, but he reports having the shakes. He tried to self detox last week, but felt miserable and resumed drinking. He felt dizzy on Friday and fell onto his face, no syncope, was seen at [facility]. CT head was negative and he sustained a left little finger ?strain/ fracture, was advised a splint. He denies any further falls. He has had ongoing alternating lower extremity tingling/numbness for many years, last a few minutes and goes away, no weakness or gait instability. He also reports left upper extremity tingling that is worse since his fall last week. Chest pressure is substernal and epigastric, nonradiating, lasts a few minutes, worse with exertion associated with dyspnea. C/o dizziness especially when getting up from lying down position. He is noncompliant with his medications and does not follow up with a physician. Family h/o: Father colon cancer, stroke and IL. Mother brain cancer. Brother and sister multiple sclerosis. Vitals are stable except for hypertension BP 166/76. Exam: AAO, multiple wounds over forehead and nasal bridge 2/2 fall. Chest b/l rhonchi, Heart S1S2 regular, Abd soft, NT. Neuro intact except for sensation slightly reduced on left hand. Left hand: fingers and palm swollen, little finger flexed, unable to make a fist , pulses well felt. Labs: macrocytosis, bicarb 18, BUN 30, glucose 137, AST 73, trop neg, amylase/lipase normal, TSH, B12 and folate normal. UA neg, Utox neg. S. Alcohol 119. CXR neg, CT head chronic small vessel ischemic changes, no acute infarct. Left hand xray: acute fracture neck of fifth metacarpal bone with volar angulation, moderate soft tissue swelling. EKG: SR, incomplete RBBB. Echo (Feb 2016): EF > 65%, stage 1 diastolic dysfunction. Orthostats are negative. 1. Atypical chest pressure that seems to have resolved now, no new EKG changes. 23 obs on Tele, serial EKG and troponin, monitor for arrhythmias, echo and Cardio consult in AM. Continue aspirin, metoprolol and statin. Check lipid panel , HbA1c. Smoking cessation counseling done. 2. Left upper extremity and bilateral LE paresthesias - chronic, associated with ?slurring of speech today. No facial droop or right/left sided weakness. Likelihood of a TIA or stroke seems low, his paresthesias are probably related to his PVD and alcohol induced neuropathy. TSH, B12 are normal. We will place him on neurochecks. Consider Neuro consult if his symptoms worsen or are recurrent. Continue gabapentin. 3. Alcohol withdrawal. CIWA, IV ativan per CIWA protocol, PO ativan 2 mg Q6, banana bag, Psych and social work consult. Continue citalopram. Patient is not sure if he has a h/o withdrawal seizures, but c/o shakes or tremors if he does not drink. 4. Left fifth metacarpal fracture. Splint to be applied. Obtain Ortho consult in AM. Pain management, elevate left hand. DVT ppx Lovenox. Full code. JES GARCÍA 12/12/16 0612: Resident Review Statement Resident Statement: examined this patient, discussed with internal audit consultant, agreed with internal audit consultant Other Findings: 51 year old, chonic smoker, with vasculopathy here for evaluation of pressure like midsternal chest pain, exertional in nature, associated with nausea and diaphoresis, relieved with rest needs observation in Tele to rule out ACS. Concern for TIA as well, given slurring of speech and LUE and LLE numbness/ tingling. History of alcohol dependence. Check TSH, B12, Hba1c. Neurochecks. Manage for alcohol withdrawal. Full code. Lovenox for DVT prophylaxis. Heart healthy diet.
--- NOTE | 2016-12-11 21:26 | RADIOLOGY REPORT ---
EXAMINATION: XR HAND, LEFT CLINICAL INFORMATION: Left hand swelling following fall. COMPARISON: None. TECHNIQUE: AP, lateral, and oblique views of the left hand. FINDINGS: Multiple views of the left hand demonstrate an acute angulated fracture involving the fifth metacarpal neck of the left hand with associated volar angulation of the distal metacarpal fracture fragment relative to the proximal right metacarpal fracture fragments. No additional fractures of the left hand are identified. There is minimal joint space narrowing involving the proximal and distal interphalangeal joints. There is moderate soft tissue swelling along the dorsum of the left hand. No radiopaque foreign bodies are identified. IMPRESSION: Acute fracture involving the neck of the fifth metacarpal bone of the left hand with volar angulation of the distal fracture fragment relative to the proximal fracture fragment. Moderate soft tissue swelling along the dorsum of the hand.
--- NOTE | 2016-12-11 21:31 | NUR ---
ATTEMPTED TO GIVE REPORT AND NURSE IS UNAVAILABLE
[2016-12-11 23:46] VITALS: BP 130/74
--- NOTE | 2016-12-12 05:37 | PN- Housestaff ---
Subjective Follow-up For: Dizziness/impair balance left 5th metacarpal fracture Chest discomfort Subjective: Patient seen and examined. He is seen lying flat in bed resting comfortably. He appears to be in no acute distress. He reports mild/moderate pain in his left hand and feels the pain is worse with the splint. He otherwise states that his chest discomfort that has been present fro "a long time" is not better or worse currently. He states that he had two episdoses of "room spinning" this morning that occured at rest without position change; he denies any associated symptoms during these events. Otherwise he denies any headache, fever, chills, palpitations, shortness of breath, nausea, vomiting. Review of Systems Constitutional: Reports: see HPI. Objective Last 24 Hrs of Vital Signs/I&O Vital Signs Date Time Temp Pulse Resp B/P B/P Pulse O2 O2 Flow FiO2 Mean Ox Delivery Rate 12/12 1600 98.0 70 20 170/88 /08 1600 97 Room Air Room Air / 1600 98.0 70 20 170/88 97 Room Air Room Air /08 0944 79 150/86 06/08 0843 98.0 65 18 136/88 96 Room Air /08 0800 Room Air Room Air /08 0800 98.0 65 20 138/88 06/07 2346 97.4 78 12 130/74 96 Room Air 06/07 2105 98.1 85 18 141/56 06/07 2105 98.1 85 18 141/56 97 Room Air 06/07 1831 98.2 78 18 166/76 97 Room Air /07 1829 98.2 74 18 166/76 Intake & Output /08 1600 06/08 0800 /08 0000 Intake Total 480 Output Total 600 Balance -120 Intake, Oral 480 Number 0 Bowel Movements Output, Urine 600 Patient 81.647 kg Weight Physical Exam General Appearance: Alert, Oriented X3, Cooperative, No Acute Distress Other Physical Findings: General- well developed, well nourished middle aged man in no acute distress HEENT- PERRL, EOMI, anicteric sclera, moist mucous membranes, no nystagmus, scabbing without drainage to upper nasal bridge, skin changes with mild abrasions to forehead Chest- S1, S2 w/o m/g/r Lung- CTA bilaterally Abdomen- Soft, nontender, nondistended, bowel sounds intact Neuro- Awake and alert, oriented to person place time, speech/coordination/ senstion intact, CN II - XII intact Ext- normal pulses, no cyanosis/clubbing/edema Current Medications: Current Medications Sig/Yung Start time Last Medication Dose Route Stop Time Status Admin Acetaminophen 650 MG Q6P PRN 12/11 2100 AC PO Albuterol Sulfate 2 PUF Q12P PRN 12/11 2300 AC INH Aspirin 81 MG DAILY 12/12 1000 AC 12/12 PO 0944 Atorvastatin Calcium 80 MG DAILY 12/12 1000 AC 12/12 PO 0944 Budesonide/ 2 PUF BID 12/11 2246 AC 12/12 Formoterol Fumarate INH 0943 Citalopram 40 MG DAILY 12/12 1000 AC 12/12 Hydrobromide PO 0944 Cyanocobalamin/ 1 BAG DAILY 12/11 2102 DC 12/11 Thiamine/Pyridoxine IV 12/12 0501 2230 Dextrose/Water 1,000 ML Enoxaparin Sodium 40 MG DAILY 12/12 1000 AC 12/12 SC 0945 Folic Acid 1 MG DAILY 12/12 1000 AC 12/12 PO 0944 Lorazepam 1 MG Q2P PRN 12/11 2100 AC 12/12 IV 1600 Lorazepam 2 MG ONE ONE 12/11 1830 DC 12/11 IV 12/11 1831 1834 Lorazepam 0 .STK-MED ONE 12/11 1829 DC .ROUTE Meclizine HCl 12.5 MG TID 12/12 1000 AC 12/12 PO 1600 Metoprolol Succinate 200 MG DAILY 12/12 1000 AC 12/12 PO 0944 Patient Medication 1 ED .STK-MED ONE 12/12 1317 TN Teaching ED 12/12 1318 Thiamine HCl 100 MG TID 12/12 1744 AC PO 12/15 1001 Tiotropium [place] 1 PUF DAILY 12/12 1000 AC 12/12 INH 0942 Tramadol HCl 50 MG Q6P PRN 12/12 0045 AC PO Last 24 Hrs of Lab/Simeon Results Last 24 Hrs of Labs/Mics: Laboratory Tests 12/12/16 0650: Anion Gap 7, Estimated GFR > 60, BUN/Creatinine Ratio 33.3 H, Troponin I < 0.01 , Triglycerides 58, Cholesterol 214 H, LDL Cholesterol, Calc 150 H, HDL Cholesterol 53, Cholesterol/HDL Ratio 4.0, CBC w Diff NO MAN DIFF REQ, RBC 4.44 L, MCV 97.2 H, MCH 32.7 H, RDW 16.3 H, MPV 8.6, Gran % 57.8, Lymphocytes % 25.7, Monocytes % 12.5 H, Eosinophils % 3.5, Basophils % 0.5, Absolute Granulocytes 3.1, Absolute Lymphocytes 1.4, Absolute Monocytes 0.7 H, Absolute Eosinophils 0.2, Absolute Basophils 0, PUBS MCHC 33.7 12/11/16 2111: Urine Opiates Screen < 100.00, Methadone Screen 43, Barbiturate Screen < 60, Ur Phencyclidine Scrn < 6.00, Amphetamines Screen 226, U Benzodiazepines Scrn < 85, Urine Cocaine Screen < 50, Urine Cannabis Screen < 5.00, Urinalysis LIGHT H, Urine Color YEL, Urine Clarity CLEAR, Urine pH 5.5, Ur Specific [place] 1.025, Urine Protein TRACE H, Urine Ketones NEG, Urine Nitrite NEG, Urine Bilirubin NEG, Urine Urobilinogen 0.2, Ur Leukocyte Esterase NEG, Ur Microscopic SEDIMENT EXAMINED, Urine WBC RARE, Urine Mucus MANY H, Urine Hemoglobin NEG, Urine Glucose NEG Assessment/Plan Assessment: 50 year old man with significant past medical history of CAD s/p RCA stent, PVD s/p aorto-bifemoral bypass, hypertension, hyperlipidemia, 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 Patient reports a recent syncopcal episode for which he was reportedly seen and evaluation by [facility] but discharged the same day. Initial vital signs within normal limits, CBC/BEP/Utox/UA/LFTs/Lipase/Amylase within normal limits. Serum EtOH 119. Troponin <0.01. EKG demonstrated NSR with 1st degree AVB. CT head demonstrated chronic small vessel disease with no acute intral cranial finings. CXR negative. XR left hand demonstrated acute 5th metacarpal fracture. Patient was placed under observation on the telemetry floor for further evaluation. Dizziness / Gait Imbalance / Chest Pressure -Telemetry Obs -Neurochecks -Aspirin 81mg PO Daily -Metoprolol Succ. 200mg PO Daily -Atorvatatin 80mg PO Daily -Continue Gabapentin -B12/Folate/TSH within normal limits -CT Head: chronic vessel disease, no acute intracranial pathology -Trend troponin/EKG -Consider neuro consult if symptoms worsen -Cardiology consult -F/U Lipid Panel, HbA1c -F/ Echocardiogram Acute Left 5th Metacarpal Fracture -Splint -Pain Control -Ortho consult EtOH Withdrawal/Dependence -CIWA -Ativan per CIWA -Ativan 2mg PO Q6H -Banana bag, Multivitamin, Folic Acid -Psych / Social work consult COPD- Continue Symbicort, Spiriva, Ventolin Depression-Celexa 40mg PO Daily Pain Plan-Acetaminophen / Tramadol Diet-Heart Healthy Diet DVT PPx-Lovenox Code Status- FULL CODE Problem List: 1. Chest pain Pain Ratin Pain Location: Chest pain Head pain left hand pain Pain Goal: Remain pain free Pain Plan: See assessment Tomorrow's Labs & Rationales: BEP/MG- hyponatremia
[2016-12-12 08:00] VITALS: BP 138/88
[2016-12-12 08:12] LABS: ABSOLUTE BASOPHIL COUNT 0 /CUMM (0.0-0.2); ABSOLUTE EOSINOPHIL COUNT 0.2 /CUMM (0.0-0.7); ABSOLUTE GRANULOCYTE CT 3.1 /CUMM (1.4-6.5); ABSOLUTE LYMPH COUNT 1.4 /CUMM (1.2-3.4); ABSOLUTE MONOCYTE COUNT 0.7 /CUMM (0.10-0.60); BASOPHIL % 0.5 % (0.0-2.0); EOSINOPHIL % 3.5 % (0-5); GRANULOCYTE % 57.8 % (42.2-75.2); HEMATOCRIT 43.1 % (42-52); MEAN CORPUSCULAR HGB 32.7 PG (27.0-31.0); MEAN CORPUSCULAR HGB CONC 33.7 G/DL (33.0-37.0); MEAN CORPUSCULAR VOLUME 97.2 FL (80.0-94.0); MEAN PLATELET VOLUME 8.6 FL (7.4-10.4); PLATELET COUNT 131 /CUMM (130-400); RBC DISTRIBUTION WIDTH 16.3 % (11.5-14.5); RED BLOOD CELL CT 4.44 /CUMM (4.70-6.10); WHITE BLOOD CELL COUNT 5.4 /CUMM (4.8-10.8)
[2016-12-12 08:43] VITALS: BP 136/88
--- NOTE | 2016-12-12 10:36 | PN- Att Addend ---
Attending Addendum Attending Brief Note Patient seen and examined. Resting comfortably not in acute distress. Denies chest pain at present. Denies shortness of breath or cough. He reports exertional chest pain going on for about 2 years. He reports relief with rest. Denies any palpitations. Denies shortness of breath. He also complains of positional dizziness. Admits to ringing sensation in the right ear. Vital Signs Date Time Temp Pulse Resp B/P B/P Pulse O2 O2 Flow FiO2 Mean Ox Delivery Rate 12/12 0944 79 150/86 / 0843 98.0 65 18 136/88 96 Room Air /08 0800 Room Air Room Air /08 0800 98.0 65 20 138/88 06/07 2346 97.4 78 12 130/74 96 Room Air 06/07 2105 98.1 85 18 141/56 06/07 2105 98.1 85 18 141/56 97 Room Air 06/07 1831 98.2 78 18 166/76 97 Room Air 06/07 1829 98.2 74 18 166/76 06/07 1730 98.0 78 18 142/78 06/07 1729 98.0 74 18 142/78 97 Room Air 06/07 1545 95 19 115/65 96 Room Air 06/07 1514 98.1 92 18 120/78 95 Room Air Intake & Output / 1600 /08 0800 /08 0000 Intake Total Output Total Balance Patient 81.647 kg Weight Gen. appearance: Not in acute distress HEENT: Abrasion over the forehead and bridge of the nose. Reactive. No nystagmus. Heart: S1-S2, regular, no murmurs Lungs: Good entry bilaterally, clear to auscultation Abdomen: Soft, nontender with normal bowel sounds Extremities: No pedal edema. Left wrist deformity. Palpable radial pulse. Neurologic: No gross focal deficits. Problems: 1. Chest pain; chronic. Negative cardiac enzymes. No EKG changes. Nuclear stress test in 2013 showed moderately sized fixed perfusion abnormality in the inferior wall. 2. Dizziness; worse with position change associated with tinnitus and unsteady gait. 3. History of alcohol abuse 4. Left wrist fracture. Plan: -Continue telemetry monitoring. Follow-up cardiology consultation. -Orthopedic consultation for brace placement left wrist. Pain management with Toradol as needed. -Continue CIWA protocol. Hold all standing dose of Ativan for now as his CIWA is low this morning. -Check orthostatic blood pressure. Neurology consultation, will consider MRI. Physical therapy consultation for safe discharge planning.
--- NOTE | 2016-12-12 11:57 | Cons- Orthopedic ---
General Information and HPI Consulting Request Date of Consult: 12/12/16 Requested By: SHIRLENE GELLER M.D Reason for Consult: L hand fracture Source of Information: patient, old records Exam Limitations: no limitations History of Present Illness: 51-year-old male with no prior history of left hand injury presents to the hospital with syncope and dizziness. He was admitted this morning. He states on 12/07 he had a near syncopal episode with dizziness that caused him to fall, he sustained a facial abrasion injury and a left hand injury and was seen at a hospital in [place]. It was noted at that time on x-ray the patient had a left fifth metacarpal fracture and he was placed in a splint. He was then discharged home, however he had another near syncopal event which brought him to our facility. He is admitted to the medical service on telemetry and orthopedics, Dr. Bryant, was consulted regarding his left hand. He was placed in a splint. He has complaints of mild pain with palpation and with motion of the hand and fingers. He has mild to moderate swelling as well. Patient is right-hand dominant Allergies/Medications Allergies: Coded Allergies: NO KNOWN ALLERGIES (10/07/14) Home Med List: Albuterol Sulfate (Proventil Hfa) 90 MCG HFA.AER.AD 2 PUF INH PRN RESPIRATORY (Reported) Aspirin (Children's Aspirin) 81 MG TAB.CHEW 1 TAB PO DAILY HEART/BLOOD ( Reported) Atorvastatin Calcium 80 MG TABLET 80 MG PO DAILY HYPERLIPIDEMIA Budesonide/Formoterol Fumarate (Symbicort 80-4.5 Mcg Inhaler) 80 MCG-4.5 MCG/ ACTUATION HFA.AER.AD 2 PUF INH BID RESPIRATORY (Reported) Citalopram Hydrobromide (Citalopram HBr) 40 MG TABLET 1 TAB PO DAILY MENTAL HEALTH (Reported) Folic Acid 1 MG TABLET 1 TAB PO DAILY SUPPLEMENT (Reported) Metoprolol Succinate 200 MG TAB.ER.24H 1 TAB PO DAILY HEART/BP (Reported) Tiotropium [place] (Spiriva) 18 MCG CAP.W.DEV 1 CAP INH DAILY PRN BREATHING ( Reported) Past History Medical History Neurological: NONE EENT: NONE Cardiovascular: CAD, hypertension, hyperlipidemia (PVD) Respiratory: asthma Gastrointestinal: NONE Hepatic: NONE Renal: NONE Musculoskeletal: NONE Psychiatric: alcohol dependence Endocrine: NONE Blood Disorders: NONE Cancer(s): NONE 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 MOTHER (Brain Tumor). BROTHER (MS). Psychosocial History Where Do You Live? Home Who Do You Live With? spouse Services at Home: None Primary Language: Icelandic Smoking Status: Unknown If Ever Smoked ETOH Use: alcoholic Illicit Drug Use: denies illicit drug use Functional Ability ADLs Independent: dressing, eating, toileting, bathing. Ambulation: independent IADLs Independent: shopping, housework, finances, food prep, telephone, transportation , medication admin. Review of Systems Review of Systems: Review of systems: See HPI, all other systems negative. Constitutional: No chills fever or weight loss HEENT: No visual changes no sore throat no congestion Cardiovascular: No chest pain ,palpitation , orthopnea or ankle swelling Skin: No jaundice no rashes Respiratory: No dyspnea cough sputum or hemoptysis GI: No nausea no vomiting : No dysuria no hematuria Musclulo skeletal: See HPI Neurologic: No numbness no confusion Psych: No stress anxiety or depression,. Heme/endocrine: No bruising no bleeding no polyuria or polydipsia Immunology: No splenectomy or history of AIDS Exam & Diagnostic Data Vital Signs and I&O Vital Signs Date Time Temp Pulse Resp B/P B/P Pulse O2 O2 Flow FiO2 Mean Ox Delivery Rate 12/12 0944 79 150/86 12/12 0843 98.0 65 18 136/88 96 Room Air /08 0800 Room Air Room Air /08 0800 98.0 65 20 138/88 06/07 2346 97.4 78 12 130/74 96 Room Air 06/07 2105 98.1 85 18 141/56 06/07 2105 98.1 85 18 141/56 97 Room Air /07 1831 98.2 78 18 166/76 97 Room Air 06/07 1829 98.2 74 18 166/76 06/07 1730 98.0 78 18 142/78 06/07 1729 98.0 74 18 142/78 97 Room Air 06/07 1545 95 19 115/65 96 Room Air /07 1514 98.1 92 18 120/78 95 Room Air Intake & Output 12/12 1600 12/12 0800 12/12 0000 12/11 1600 12/11 0800 12/11 0000 Intake Total 480 Output Total 600 Balance -120 Intake, Oral 480 Number 0 Bowel Movements Output, Urine 600 Patient 180 lb 180 lb Weight Physical Exam: Well-developed well-nourished no apparent distress. HEENT: Abrasions noted to the frontal forehead region and the nasal region, healing well, extraocular motion intact Neck: Supple, no lymphadenopathy Respiratory: No respiratory distress Extremities: No edema, no calf pain Neuro: Alert and oriented x3 Psych: Mood affect normal, normal memory normal judgment. Skin: Warm and dry, no rash on exposed skin Left upper extremity, left hand with mild to moderate swelling, point tenderness over the fifth metacarpal distal aspect volar aspect. Range of motion is limited with tip to palm distance of the fifth digit approximately 3 cm, neurovascularly intact, no rotational deformity Imaging Results: Plain radiographs of the left hand were reviewed by myself, mildly displaced volar left fifth metacarpal neck fracture Assessment/Plan Assessment/Plan L hand 5th MC neck fracture, mild volar angulation, no rotational component. Ulnar gutter splint in the position of safety applied by myself with sabrina orozco post procedure. say in splint until follow up with orthopedist next week, to call Dr Bryant. Elevate, keep clean and dry, pain meds as needed. He may weight bear as tolerated through the palm with the splint on. Thank you for the consultation, please call with questions. Discussed with patient who understands and agrees with plan. Discussed with Dr. Bryant Consult Acknowledgment - Thank you for your consult request.
--- NOTE | 2016-12-12 14:05 | MRI REPORT ---
EXAMINATION: MR BRAIN WITHOUT CONTRAST CLINICAL INFORMATION: Frequent falls. Assess for ischemia or cerebellar pathology. COMPARISON: CT scan of the head 01/10/2017. MRI scan of the brain 02/18/2009. TECHNIQUE: MRI of the brain without contrast was obtained using routine sequences. FINDINGS: The study demonstrates interval increase in the extensive areas of T2 and FLAIR hyperintensity in the periventricular and subcortical white matter compared to the prior study. The ventricles and sulci are slightly commensurately prominent consistent with mild diffuse volume loss which is not significantly changed compared to the prior study. No focal reduced diffusion is seen to suggest acute or subacute cerebral ischemia. No intracranial mass, intracerebral edema, intra-axial blood products, midline shift, or extra-axial collection is visualized. Normal arterial and venous vascular flow voids are present. There is mild fluid at the right mastoid tip which was present on the prior study. There has been interval increase in the mucoperiosteal thickening in the inferior left maxillary sinus and there is now opacification in the right maxillary, right ethmoid and right sphenoid sinuses. IMPRESSION: 1. There are no acute bleeds or infarcts. 2. There has been slight interval increase in the T2 and FLAIR hyperintensity in the periventricular white matter. The findings are nonspecific, but may be consistent with accelerated microvascular ischemic disease or with demyelination, vasculitis or migraine in the correct clinical setting.
[2016-12-12 16:00] VITALS: BP 170/88
--- NOTE | 2016-12-12 16:38 | Cons- Neurology ---
General Information and HPI Consulting Request Date of Consult: 12/12/16 Requested By: SHIRLENE GELLER M.D Source of Information: patient, old records Exam Limitations: no limitations History of Present Illness: - 51 year-old male who presents with loss of balance and intermittent falls This past Friday he stated that he fell through a door and struck his head He has noted intermittent dizziness and a sense of weakness Over the same period of time he has noted chest pains If there is no aura before the fall He admits to heavy alcohol use nearly a pint a day Allergies/Medications Allergies: Coded Allergies: NO KNOWN ALLERGIES (10/07/14) Home Med List: Albuterol Sulfate (Proventil Hfa) 90 MCG HFA.AER.AD 2 PUF INH PRN RESPIRATORY (Reported) Aspirin (Children's Aspirin) 81 MG TAB.CHEW 1 TAB PO DAILY HEART/BLOOD ( Reported) Atorvastatin Calcium 80 MG TABLET 80 MG PO DAILY HYPERLIPIDEMIA Budesonide/Formoterol Fumarate (Symbicort 80-4.5 Mcg Inhaler) 80 MCG-4.5 MCG/ ACTUATION HFA.AER.AD 2 PUF INH BID RESPIRATORY (Reported) Citalopram Hydrobromide (Citalopram HBr) 40 MG TABLET 1 TAB PO DAILY MENTAL HEALTH (Reported) Folic Acid 1 MG TABLET 1 TAB PO DAILY SUPPLEMENT (Reported) Metoprolol Succinate 200 MG TAB.ER.24H 1 TAB PO DAILY HEART/BP (Reported) Tiotropium [place] (Spiriva) 18 MCG CAP.W.DEV 1 CAP INH DAILY PRN BREATHING ( Reported) Current Medications: Current Medications Sig/Yung Start time Last Medication Dose Route Stop Time Status Admin Acetaminophen 650 MG Q6P PRN 12/11 2100 AC PO Albuterol Sulfate 2 PUF Q12P PRN 12/11 2300 AC INH Aspirin 81 MG DAILY 12/12 1000 AC 12/12 PO 0944 Aspirin 0 .STK-MED ONE 12/11 1736 DC PO Aspirin 325 MG ONCE ONE 12/11 1715 DC 12/11 PO 12/11 1716 1720 Atorvastatin Calcium 80 MG DAILY 12/12 1000 AC 12/12 PO 0944 Budesonide/ 2 PUF BID 12/11 2246 AC 12/12 Formoterol Fumarate INH 0943 Citalopram 40 MG DAILY 12/12 1000 AC 12/12 Hydrobromide PO 0944 Cyanocobalamin/ 1 BAG DAILY 12/11 2102 DC 12/11 Thiamine/Pyridoxine IV 12/12 0501 2230 Dextrose/Water 1,000 ML Enoxaparin Sodium 40 MG DAILY 12/12 1000 AC 12/12 SC 0945 Folic Acid 1 MG DAILY 12/12 1000 AC 12/12 PO 0944 Lorazepam 1 MG Q2P PRN 12/11 2100 AC 12/12 IV 1600 Lorazepam 2 MG ONE ONE 12/11 1830 DC 12/11 IV 12/11 1831 1834 Lorazepam 0 .STK-MED ONE 12/11 1829 DC .ROUTE Meclizine HCl 12.5 MG TID 12/12 1000 AC 12/12 PO 1600 Metoprolol Succinate 200 MG DAILY 12/12 1000 AC 12/12 PO 0944 Patient Medication 1 ED .STK-MED ONE 12/12 1317 DC Teaching ED 12/12 1318 Tiotropium [place] 1 PUF DAILY 12/12 1000 AC 12/12 INH 0942 Tramadol HCl 50 MG Q6P PRN 12/12 0045 AC PO Review of Systems Review of Systems: Occasional headaches, no diplopia, intermittent dizziness, chest pains, no shortness of breathk, no vomiting, no incontinence, no recent fevers, no significant swelling, has ecchymosis when he fell in the forehead, fractured left arm, of the systems reviewed are negative Past History Travel History Traveled to [place] past 21 day No Medical History Neurological: NONE EENT: NONE Cardiovascular: CAD, hypertension, hyperlipidemia (PVD) Respiratory: asthma Gastrointestinal: NONE Hepatic: NONE Renal: NONE Musculoskeletal: NONE Psychiatric: alcohol dependence Endocrine: NONE Blood Disorders: NONE Cancer(s): NONE 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 MOTHER (Brain Tumor). BROTHER (MS). Psychosocial History Where Do You Live? Home Who Do You Live With? spouse Services at Home: None Primary Language: Pashto Smoking Status: Unknown If Ever Smoked ETOH Use: alcoholic Illicit Drug Use: denies illicit drug use Functional Ability ADLs Independent: dressing, eating, toileting, bathing. Ambulation: independent IADLs Independent: shopping, housework, finances, food prep, telephone, transportation , medication admin. Exam & Diagnostic Data Vital Signs and I&O Vital Signs Date Time Temp Pulse Resp B/P B/P Pulse O2 O2 Flow FiO2 Mean Ox Delivery Rate 12/12 1600 98.0 70 20 170/88 12/12 1600 97 Room Air Room Air 12/12 1600 98.0 70 20 170/88 97 Room Air Room Air 12/12 0944 79 150/86 / 0843 98.0 65 18 136/88 96 Room Air 12/12 0800 Room Air Room Air 12/12 0800 98.0 65 20 138/88 / 2346 97.4 78 12 130/74 96 Room Air 06/ 2105 98.1 85 18 141/56 06/ 2105 98.1 85 18 141/56 97 Room Air / 1831 98.2 78 18 166/76 97 Room Air / 1829 98.2 74 18 166/76 / 1730 98.0 78 18 142/78 / 1729 98.0 74 18 142/78 97 Room Air Intake & Output 12/12 1600 12/12 0800 12/12 0000 Intake Total 480 Output Total 600 Balance -120 Intake, Oral 480 Number 0 Bowel Movements Output, Urine 600 Patient 180 lb Weight Alert and oriented, language functions, now extends bent castration intact Heart sounds normal, no carotid bruits, no pulses intact Extremities the movements full, pupils equal and reactive, fundi benign, visual martinez intact, no facial weakness no facial sensory loss palate tongue and shoulders intact hearing grossly intact Normal tone and strength upper and lower extremities No sensory loss to light touch Deep tendon reflexes hypoactive throughout Cortical functions upper extremities intact Deep mildly ataxic,,, Imaging/Other Studies: mri brain IMPRESSION: 1. There are no acute bleeds or infarcts. 2. There has been slight interval increase in the T2 and FLAIR hyperintensity in the periventricular white matter. The findings are nonspecific, but may be consistent with accelerated microvascular ischemic disease or with demyelination, vasculitis or migraine in the correct clinical setting. Assessment/Plan Assessment: Gait imbalance gait imbalance, likely alcohol-related Recommendations: Vitamin B12 level, high-dose thiamine supplement, physical therapy Consult Acknowledgment - Thank you for your consult request.
--- NOTE | 2016-12-12 18:04 | Cons- Cardiology ---
General Information and HPI Consulting Request Date of Consult: 12/12/16 Requested By: SHIRLENE GELLER M.D Reason for Consult: Known CAD, ?TIA Source of Information: patient, old records Exam Limitations: no limitations History of Present Illness: Mr. Dickey is a 51-year-old man well known to me. He has underlying coronary disease with stenting about 4 years ago. The exact details of this are unknown. He has not had any cardiac issues since that time. He w 100 mg as hospitalized in 2014 for chest pain. He had a small pulmonary embolism on that hospitalization was sent out on Xarelto. He was also sent out on statin, aspirin, WOODY inhibitor. Unfortunately he did not follow up afterwards and stopped all his medications and return to drinking heavily, which has been an ongoing problem for him. In Feb 2016 he was admitted again with chest heaviness. He did take a nitroglycerin which helped somewhat but his heaviness has persisted pretty much all day. He also had an alcohol level of over 400. His workup was negative for ischemia on that admission. He did not followup with me after that. The patient has recently had problems with balance and had a fall a few days ago resulting in head trauma and fracture of his left hand. He is complaining of worse dizziness and poor balance. The patient has continued drinking although he tells me he is trying to cut down. He did have a positive alcohol level on admission. So far his cardiac workup has been negative with no arrhythmias and 2 negative troponins.. He did describe some chest pain on admission but this was brief, nonexertional and atypical. Allergies/Medications Allergies: Coded Allergies: NO KNOWN ALLERGIES (10/07/14) Home Med List: Albuterol Sulfate (Proventil Hfa) 90 MCG HFA.AER.AD 2 PUF INH PRN RESPIRATORY (Reported) Aspirin (Children's Aspirin) 81 MG TAB.CHEW 1 TAB PO DAILY HEART/BLOOD ( Reported) Atorvastatin Calcium 80 MG TABLET 80 MG PO DAILY HYPERLIPIDEMIA Budesonide/Formoterol Fumarate (Symbicort 80-4.5 Mcg Inhaler) 80 MCG-4.5 MCG/ ACTUATION HFA.AER.AD 2 PUF INH BID RESPIRATORY (Reported) Citalopram Hydrobromide (Citalopram HBr) 40 MG TABLET 1 TAB PO DAILY MENTAL HEALTH (Reported) Folic Acid 1 MG TABLET 1 TAB PO DAILY SUPPLEMENT (Reported) Gabapentin (Neurontin) 100 MG CAPSULE 1 CAP PO TID PERIPHERAL NEUROPATHY ( Reported) Lisinopril 10 MG TABLET 10 MG PO DAILY HYPERTENSION Meclizine HCl 12.5 MG TABLET 12.5 MG PO TID PRN VERTIGO Metoprolol Succinate 200 MG TAB.ER.24H 1 TAB PO DAILY HEART/BP (Reported) Thiamine HCl (B-1) 100 MG TABLET 1 TAB PO DAILY SUPPLEMENT (Reported) Tiotropium [place] (Spiriva) 18 MCG CAP.W.DEV 1 CAP INH DAILY PRN BREATHING ( Reported) Current Medications: Current Medications Sig/Yung Start time Last Medication Dose Route Stop Time Status Admin Acetaminophen 650 MG Q6P PRN 12/11 2100 AC PO Albuterol Sulfate 2 PUF Q12P PRN 12/11 2300 AC INH Aspirin 81 MG DAILY 12/12 1000 AC 12/12 PO 0944 Atorvastatin Calcium 80 MG DAILY 12/12 1000 AC 12/12 PO 0944 Budesonide/ 2 PUF BID 12/11 2246 AC 12/12 Formoterol Fumarate INH 0943 Citalopram 40 MG DAILY 12/12 1000 AC 12/12 Hydrobromide PO 0944 Cyanocobalamin/ 1 BAG DAILY 12/11 2102 DC 12/11 Thiamine/Pyridoxine IV 12/12 0501 2230 Dextrose/Water 1,000 ML Enoxaparin Sodium 40 MG DAILY 12/12 1000 AC 12/12 SC 0945 Folic Acid 1 MG DAILY 12/12 1000 AC 12/12 PO 0944 Lorazepam 1 MG Q2P PRN 12/11 2100 AC 12/12 IV 1600 Lorazepam 2 MG ONE ONE 12/11 1830 DC 12/11 IV 12/11 1831 1834 Lorazepam 0 .STK-MED ONE 12/11 1829 DC .ROUTE Meclizine HCl 12.5 MG TID 12/12 1000 AC 12/12 PO 1600 Metoprolol Succinate 200 MG DAILY 12/12 1000 AC 12/12 PO 0944 Patient Medication 1 ED .STK-MED ONE 12/12 1317 DC Teaching ED 12/12 1318 Thiamine HCl 100 MG TID 12/12 1744 AC PO 12/15 1001 Tiotropium [place] 1 PUF DAILY 12/12 1000 AC 12/12 INH 0942 Tramadol HCl 50 MG Q6P PRN 12/12 0045 AC PO Review of Systems Review of Systems: His main complaint is dizziness and poor balance Past History Travel History Traveled to [place] past 21 day No Medical History Neurological: NONE EENT: NONE Cardiovascular: CAD, hypertension, hyperlipidemia (PVD) Respiratory: asthma Gastrointestinal: NONE Hepatic: NONE Renal: NONE Musculoskeletal: NONE Psychiatric: alcohol dependence Endocrine: NONE Blood Disorders: NONE Cancer(s): NONE DAG SPRAYER/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 MOTHER (Brain Tumor). BROTHER (MS). Psychosocial History Where Do You Live? Home Who Do You Live With? spouse Services at Home: None Primary Language: Divehi Smoking Status: Unknown If Ever Smoked ETOH Use: alcoholic Illicit Drug Use: denies illicit drug use Functional Ability ADLs Independent: dressing, eating, toileting, bathing. Ambulation: independent IADLs Independent: shopping, housework, finances, food prep, telephone, transportation , medication admin. Exam & Diagnostic Data Vital Signs and I&O Vital Signs Date Time Temp Pulse Resp B/P B/P Pulse O2 O2 Flow FiO2 Mean Ox Delivery Rate / 1600 98.0 70 20 170/88 /08 1600 97 Room Air Room Air / 1600 98.0 70 20 170/88 97 Room Air Room Air /08 0944 79 150/86 06/08 0843 98.0 65 18 136/88 96 Room Air /08 0800 Room Air Room Air /08 0800 98.0 65 20 138/88 /07 2346 97.4 78 12 130/74 96 Room Air / 2105 98.1 85 18 141/56 06/07 2105 98.1 85 18 141/56 97 Room Air / 1831 98.2 78 18 166/76 97 Room Air / 1829 98.2 74 18 166/76 Intake & Output / 1600 /08 0800 /08 0000 / 1600 12/11 0800 / 0000 Intake Total 480 Output Total 600 Balance -120 Intake, Oral 480 Number 0 Bowel Movements Output, Urine 600 Patient 180 lb 180 lb Weight Physical Exam: On physical is well-developed well-nourished middle-aged man in no acute distress lying in bed HEENT exam reveals evidence of trauma to his forehead and nose Neck veins not distended Carotids normal Chest is clear Heart reveals regular rhythm and no murmurs Extremities revealed good pulses and no edema Neurologic exam moving all extremities, balance and gait not tested Labs/Simeon Results: Laboratory Tests 12/12 12/11 0650 2111 Chemistry Sodium (137 - 145 mmol/L) 133 L Potassium (3.5 - 5.1 mmol/L) 4.0 Chloride (98 - 107 mmol/L) 104 Carbon Dioxide (22 - 30 mmol/L) 23 Anion Gap (5 - 16) 7 BUN (9 - 20 mg/dL) 30 H Creatinine (0.7 - 1.2 mg/dL) 0.9 Estimated GFR (>60 ml/min) > 60 BUN/Creatinine Ratio (7 - 25 %) 33.3 H Troponin I (<0.11 ng/ml) < 0.01 Triglycerides (<150 mg/dL) 58 Cholesterol (< 200 MG/DL) 214 H LDL Cholesterol, Calc (65 - 129 mg/dL) 150 H HDL Cholesterol (40 - 60 mg/dL) 53 Cholesterol/HDL Ratio (0.00 - 4.88 %) 4.0 Hematology CBC w Diff NO MAN DIFF REQ WBC (4.8 - 10.8 /CUMM) 5.4 RBC (4.70 - 6.10 /CUMM) 4.44 L Hgb (14.0 - 18.0 G/DL) 14.5 Hct (42 - 52 %) 43.1 MCV (80.0 - 94.0 FL) 97.2 H MCH (27.0 - 31.0 PG) 32.7 H RDW (11.5 - 14.5 %) 16.3 H Plt Count (130 - 400 /CUMM) 131 MPV (7.4 - 10.4 FL) 8.6 Gran % (42.2 - 75.2 %) 57.8 Lymphocytes % (20.5 - 51.1 %) 25.7 Monocytes % (1.7 - 9.3 %) 12.5 H Eosinophils % (0 - 5 %) 3.5 Basophils % (0.0 - 2.0 %) 0.5 Absolute Granulocytes (1.4 - 6.5 /CUMM) 3.1 Absolute Lymphocytes (1.2 - 3.4 /CUMM) 1.4 Absolute Monocytes (0.10 - 0.60 /CUMM) 0.7 H Absolute Eosinophils (0.0 - 0.7 /CUMM) 0.2 Absolute Basophils (0.0 - 0.2 /CUMM) 0 PUBS MCHC (33.0 - 37.0 G/DL) 33.7 Toxicology Urine Opiates Screen (>2000 NG/ML) < 100.00 Methadone Screen (>300 NG/ML) 43 Barbiturate Screen (>200 NG/ML) < 60 Ur Phencyclidine Scrn (>25 NG/ML) < 6.00 Amphetamines Screen (>1000 NG/ML) 226 U Benzodiazepines Scrn (>200 NG/ML) < 85 Urine Cocaine Screen (>300 NG/ML) < 50 Urine Cannabis Screen (>50 NG/ML) < 5.00 Urines Urinalysis LIGHT H Urine Color (YEL,AMB,STR) YEL Urine Clarity (CLEAR) CLEAR Urine pH (5.0 - 8.0) 5.5 Ur Specific [place] (1.001 - 1.035) 1.025 Urine Protein (NEG,<30 MG/DL) TRACE H Urine Ketones (NEG) NEG Urine Nitrite (NEG) NEG Urine Bilirubin (NEG) NEG Urine Urobilinogen (0.1 - 1.0 EU/dl) 0.2 Ur Leukocyte Esterase (NEG) NEG Ur Microscopic SEDIMENT EXAMINED Urine WBC (0 - 2 /HPF) RARE Urine Mucus (FEW,NONE) MANY H Urine Hemoglobin (NEG) NEG Urine Glucose (N MG/DL) NEG 12/11 12/11 12/11 1628 1602 1534 Chemistry Sodium (137 - 145 mmol/L) 140 Potassium (3.5 - 5.1 mmol/L) 4.0 Chloride (98 - 107 mmol/L) 106 Carbon Dioxide (22 - 30 mmol/L) 18 L Anion Gap (5 - 16) 15 BUN (9 - 20 mg/dL) 30 H Creatinine (0.7 - 1.2 mg/dL) 1.0 Estimated GFR (>60 ml/min) > 60 BUN/Creatinine Ratio (7 - 25 %) 30.0 H Glucose (65 - 99 mg/dL) 137 H Lactic Acid (0.7 - 2.1 mmol/L) 1.8 Calcium (8.4 - 10.2 mg/dL) 9.5 Total Bilirubin (0.2 - 1.3 mg/dL) 0.7 AST (17 - 59 U/L) 73 H ALT (21 - 72 U/L) 72 Alkaline Phosphatase (< 127 U/L) 71 Troponin I (<0.11 ng/ml) < 0.01 Total Protein (6.3 - 8.2 g/dL) 6.8 Albumin (3.5 - 5.0 g/dL) 4.4 Globulin (1.9 - 4.2 gm/dL) 2.4 Albumin/Globulin Ratio (1.1 - 2.2 %) 1.8 Amylase (30 - 110 U/L) 109 Lipase (23 - 300 U/L) 234 Vitamin B12 (239 - 931 pg/mL) 424 Folate (2.76 - 20.0 ng/mL) 11.7 TSH (0.270 - 4.200 uIU/mL) 1.140 Coagulation D-Dimer High Sensitivty Cancelled Hematology WBC (4.8 - 10.8 /CUMM) 6.0 RBC (4.70 - 6.10 /CUMM) 4.51 L Hgb (14.0 - 18.0 G/DL) 14.8 Hct (42 - 52 %) 43.8 MCV (80.0 - 94.0 FL) 97.2 H MCH (27.0 - 31.0 PG) 32.8 H RDW (11.5 - 14.5 %) 16.8 H Plt Count (130 - 400 /CUMM) 143 MPV (7.4 - 10.4 FL) 8.0 Gran % (42.2 - 75.2 %) 66.1 Lymphocytes % (20.5 - 51.1 %) 20.9 Monocytes % (1.7 - 9.3 %) 9.4 H Eosinophils % (0 - 5 %) 2.6 Basophils % (0.0 - 2.0 %) 1.0 Absolute Granulocytes (1.4 - 6.5 /CUMM) 4.0 Absolute Lymphocytes (1.2 - 3.4 /CUMM) 1.2 Absolute Monocytes (0.10 - 0.60 /CUMM) 0.6 Absolute Eosinophils (0.0 - 0.7 /CUMM) 0.2 Absolute Basophils (0.0 - 0.2 /CUMM) 0.1 PUBS MCHC (33.0 - 37.0 G/DL) 33.7 Toxicology Serum Alcohol (<10 MG/DL) 119.0 Diagnostic Data EKG Results SR 85, IRBBB, nonspecific T canges CXR Results PATIENT: CÉSAR DICKEY PRESENT AGE: 51 PATIENT ACCOUNT NO: [id number] : 63 LOCATION: [facility] ORDERING PHYSICIAN: CLARE SPENCER DO SERVICE DATE: 12/11/16 EXAM TYPE: RAD - XRY-PORTABLE CHEST XRAY EXAMINATION: XR PORTABLE CHEST CLINICAL INFORMATION: Chest pain. COMPARISON: Chest x-ray 06/07/2016. TECHNIQUE: Portable frontal view of the chest was obtained. FINDINGS: The lungs are well-expanded and clear without focal airspace consolidation. No pleural effusions or pneumothoraces are identified. Cardiomediastinal contours are within normal limits. Soft tissues are unremarkable. No acute osseous abnormality is identified. IMPRESSION: No acute pulmonary process. DICTATED BY: LINUS OBREGON MD DATE/TIME DICTATED:12/11/161651 COMPLIANCE MGR:SAM DATE/TIME TRANSCRIBED:12/11/161651 CONFIDENTIAL, DO NOT COPY WITHOUT APPROPRIATE AUTHORIZATION. <Electronically signed in Other Vendor System> SIGNED BY: LINUS OBREGON MD 12/11/161654 Other Results CONCLUSIONS Mild concentric left ventricular hypertrophy. Normal left ventricular ejection fraction visually estimated at >65 Abnormal relaxation filling pattern of the left ventricle for age (stage 1 diastolic dysfunction). Mild left atrial dilatation. Mild thickening/calcification of the mitral valve leaflets. Diffuse thickening (sclerosis) of the aortic valve cusps without reduced excursion. No aortic stenosis. Mild aortic regurgitation. Unable to estimate the right ventricular systolic pressure. Morris Lindsay M.D. (Electronically Signed) Final Date: 12 December 2016 19:34 Assessment/Plan Assessment/Plan This patient is a 51-year-old man who is main problem is acute and chronic alcoholism. Probably has some cerebellar dysfunction accounting for poor balance and falling. Neurology has pretty much ruled out any acute neurologic event. His cardiac workup was negative. The echocardiogram does not show any significant pathology. He has not had any arrhythmias. Unfortunately the patient is very poorly compliant with any medical therapy. I would continue him on aspirin and atorvastatin at least from a cardiac standpoint. From a cardiac standpoint he can be removed from the monitor at this time. Consult Acknowledgment - Thank you for your consult request.
--- NOTE | 2016-12-12 19:34 | ECHOCARDIOGRAM REPORT ---
CÉSAR DICKEY Age: 51 : 1965 Gender: M Exam Date: 12/12/2016 11:19 Exam Location: [facility] Ht (in): 69 Wt (lb): 180 BSA: 2.01 BP: 150 / 86 Ordering Physician: JES GARCÍA MD Referring Physician: JES GARCÍA MD Technologist: Cain Barry [facility] Room Number: [id number] Indications: TIA Rhythm: Sinus Technical Quality: Good FINDINGS Left Ventricle Normal size left ventricle. Mild concentric left ventricular hypertrophy. Normal left ventricular ejection fraction visually estimated at >65 %. No obvious regional wall motion abnormalities. Abnormal relaxation filling pattern of the left ventricle for age (stage 1 diastolic dysfunction). Right Ventricle The right ventricle is normal in size and function. Right Atrium The right atrium is normal in size. Left Atrium Mild left atrial dilatation. Mitral Valve Mild thickening/calcification of the mitral valve leaflets. No mitral regurgitation. Aortic Valve Diffuse thickening (sclerosis) of the aortic valve cusps without reduced excursion. No aortic stenosis. Mild aortic regurgitation. Tricuspid Valve The tricuspid valve is normal in structure and function. There is no tricuspid regurgitation. Unable to estimate the right ventricular systolic pressure. Pulmonic Valve Structurally normal pulmonic valve. There is trace pulmonic regurgitation. Pericardium Normal pericardium without effusion. No pleural effusion. Great Vessels Normal aortic root dimension. The aortic arch and great vessels are well seen and are normal. CONCLUSIONS Mild concentric left ventricular hypertrophy. Normal left ventricular ejection fraction visually estimated at >65 Abnormal relaxation filling pattern of the left ventricle for age (stage 1 diastolic dysfunction). Mild left atrial dilatation. Mild thickening/calcification of the mitral valve leaflets. Diffuse thickening (sclerosis) of the aortic valve cusps without reduced excursion. No aortic stenosis. Mild aortic regurgitation. Unable to estimate the right ventricular systolic pressure. Morris Lindsay M.D. (Electronically Signed) Final Date: 12 December 2016 19:34 MEASUREMENTS (Male / Female) Normal Values 2D ECHO LV Diastolic Diameter PLAX 5.0 cm 4.2 - 5.9 / 3.9 - 5.3 cm LV Systolic Diameter PLAX 3.3 cm 2.1 - 4.0 cm LV Fractional Shortening PLAX 34.0 % 25 - 46 % LV Ejection Fraction 2D Teich 62.7 % IVS Diastolic Thickness 1.2 cm LVPW Diastolic Thickness 1.2 cm LV Relative Wall Thickness 0.5 RV Internal Dim ED PLAX 3.1 cm 1.9 - 3.8 cm LVOT Diameter 1.8 cm Aortic Root Diameter 2.5 cm LA Systolic Diameter LX 3.0 cm 3.0 - 4.0 / 2.7 - 3.8 cm LA Volume 52.0 cm 18 - 58 / 22 - 52 cm Ascending Aorta Diameter 3.4 cm DOPPLER AV Peak Velocity 183.0 cm/s AV Peak Gradient 13.4 mmHg AV Mean Velocity 123.0 cm/s AV Mean Gradient 7.0 mmHg AV Velocity Time Integral 41.2 cm AI Deceleration Hand 257.0 cm/s AI Peak Velocity 427.0 cm/s AI Pressure Half Time 487.0 ms AI Peak Gradient 72.9 mmHg LVOT Peak Velocity 77.5 cm/s LVOT Peak Gradient 2.4 mmHg LVOT Mean Velocity 51.7 cm/s LVOT Mean Gradient 1.0 mmHg LVOT Velocity Time Integral 19.4 cm LVOT Stroke Volume 49.4 cm AV Area Cont Eq vti 1.2 cm AV Area Cont Eq pk 1.1 cm MV Peak Velocity 88.2 cm/s MV Peak Gradient 3.1 mmHg MV Mean Velocity 49.2 cm/s MV Mean Gradient 1.0 mmHg Mitral E Point Velocity 70.1 cm/s Mitral A Point Velocity 75.5 cm/s Mitral E to A Ratio 0.9 MV PHT Velocity 80.1 cm/s MV Deceleration Hand 209.0 cm/s MV Pressure Half Time 115.0 ms MV Area PHT 1.9 cm MV Deceleration Time 352.0 ms PV Peak Velocity 86.9 cm/s PV Peak Gradient 3.0 mmHg PV Mean Velocity 67.8 cm/s PV Mean Gradient 2.0 mmHg PV Velocity Time Integral 23.1 cm LV E' Lateral Velocity 8.5 cm/s Mitral E to LV E' Lateral Ratio 8.3 LV E' Septal Velocity 6.0 cm/s Mitral E to LV E' Septal Ratio 11.6
[2016-12-13 01:03] VITALS: BP 168/88
--- NOTE | 2016-12-13 07:05 | PN- Housestaff ---
TATA YEUNG MD 12/13/16 0705: Subjective Follow-up For: Dizziness/impair balance left 5th metacarpal fracture Chest discomfort Tele-Events Since Last Visit: NSR/SB HR 50's-60s No events Subjective: Patient seen and examined. He is seen sitting upright in bed resting comfortably. He appears to be in no acute distress. He reports "a few episodes" of acute onset lightheadedness that last a few seconds. He otherwise admit that his chest discomfort comes and goes as it always has. The pain in his left hand is worse with the splint in place. He otherwise denies any new subjective complaints. Additionally he denies any blurred/double vision, headache, fever, chills, shortness of breath, nausea, vomiting. No overnight events reported. Review of Systems Constitutional: Reports: see HPI. Objective Last 24 Hrs of Vital Signs/I&O Vital Signs Date Time Temp Pulse Resp B/P B/P Pulse O2 O2 Flow FiO2 Mean Ox Delivery Rate 12/13 1200 98.3 58 20 12/13 1000 98.4 84 20 151/94 95 12/13 0907 98.3 68 18 168/88 12/13 0906 98.3 68 18 168/88 12/13 0800 98.4 84 20 151/94 12/13 0800 95 Room Air Room Air 12/13 0103 98.3 68 18 168/88 96 Room Air 12/12 1600 98.0 70 20 170/88 12/12 1600 97 Room Air Room Air / 1600 98.0 70 20 170/88 97 Room Air Room Air Intake & Output 12/13 1600 12/13 0800 12/13 0000 Intake Total 200 680 Output Total 600 1300 Balance -400 -620 Intake, Oral 200 680 Output, Urine 600 1300 Physical Exam General Appearance: Alert, Oriented X3, Cooperative, No Acute Distress Other Physical Findings: General- well developed, well nourished middle aged man in no acute distress HEENT- PERRL, EOMI, anicteric sclera, moist mucous membranes, no nystagmus, scabbing without drainage to upper nasal bridge, skin changes with mild abrasions to forehead Chest- S1, S2 w/o m/g/r Lung- CTA bilaterally Abdomen- Soft, nontender, nondistended, bowel sounds intact Neuro- Awake and alert, oriented to person place time, speech/coordination/ senstion intact, CN II - XII intact Ext- normal pulses, no cyanosis/clubbing/edema Current Medications: Current Medications Sig/Yung Start time Last Medication Dose Route Stop Time Status Admin Acetaminophen 650 MG Q6P PRN 12/11 2100 AC PO Albuterol Sulfate 2 PUF Q12P PRN 12/11 2300 AC INH Aspirin 81 MG DAILY 12/12 1000 AC 12/13 PO 0907 Atorvastatin Calcium 80 MG DAILY 12/12 1000 AC 12/13 PO 0911 Budesonide/ 2 PUF BID 12/11 2246 AC 12/13 Formoterol Fumarate INH 09 Citalopram 40 MG DAILY 12/12 1000 AC 12/13 Hydrobromide PO 09 Enoxaparin Sodium 40 MG DAILY 12/12 1000 AC 12/13 SC 0907 Folic Acid 1 MG DAILY 12/12 1000 AC 12/13 PO 0907 Lisinopril 10 MG DAILY 12/13 1000 AC 12/13 PO 0907 Lorazepam 1 MG Q2P PRN 12/11 2100 AC 12/12 IV 2357 Meclizine HCl 12.5 MG TID 12/12 1000 AC 12/13 PO 0906 Metoprolol Succinate 200 MG DAILY 12/12 1000 AC 12/13 PO 0906 Thiamine HCl 100 MG TID 12/12 1744 AC 12/13 PO 12/15 1001 0907 Tiotropium [place] 1 PUF DAILY 12/12 1000 AC 12/13 INH 0905 Tramadol HCl 50 MG Q6P PRN 12/12 0045 AC PO Assessment/Plan Assessment: Patient reports that his symptoms are mildly improved with the addition of meclizine. His issues most likely derive from his alcohol use and medication noncompliance. MRI demonstrated chronic white matter disease of undetermined significance; this is to be followed up with as an outpatient and may require further imaging. Patient is to be discharged to home with a prescription for lisinopril and instruction to follow up with his PCP and neurologist for further evaluation. Dizziness / Gait Imbalance / Chest Pressure -Telemetry Obs -Neurochecks -Aspirin 81mg PO Daily -Metoprolol Succ. 200mg PO Daily -Atorvatatin 80mg PO Daily -Continue Gabapentin -B12/Folate/TSH within normal limits -CT Head: chronic vessel disease, no acute intracranial pathology -Trend troponin/EKG -Consider neuro consult if symptoms worsen -Cardiology consult Acute Left 5th Metacarpal Fracture -Splint -Pain Control -Ortho consult EtOH Withdrawal/Dependence -CIWA -Ativan per CIWA -Ativan 2mg PO Q6H -Banana bag, Multivitamin, Folic Acid -Psych / Social work consult COPD- Continue Symbicort, Spiriva, Ventolin Depression-Celexa 40mg PO Daily Pain Plan-Acetaminophen / Tramadol Diet-Heart Healthy Diet DVT PPx-Lovenox Code Status- FULL CODE Problem List: 1. Hand fracture Pain Ratin Pain Location: Left hand Pain Goal: Pain 4 or less Pain Plan: See assessment Tomorrow's Labs & Rationales: None DUYEN MIRANDA,SHIRLENE 12/13/16 1221: Attending MD Review Statement Attending Statement Attending MD Statement: examined this patient, discuss w/resident/PA/CORNETIST, agreed w/resident/PA/CORNETIST, reviewed EMR data (avail), discussed with nursing, discussed with case mgmt, amended to note Attending Assessment/Plan: Patient seen and examined. Resting comfortably not in any acute distress. Ambulating freely around the unit. MRI done showed no evidence of acute stroke. He did have extensive nonspecific findings. This was reviewed by the neurology service. He has no focal deficits on examination. He is alert and oriented 3. He denies any chest pain at present at rest or with ambulation. 1. Chest pain; chronic. Negative cardiac enzymes. No EKG changes. Nuclear stress test in 2013 showed moderately sized fixed perfusion abnormality in the inferior wall. 2. Dizziness; worse with position change associated with tinnitus and unsteady gait. 3. History of alcohol abuse 4. Left wrist fracture. 5. Abnormal MRI. 6. HTN Recommendations: -Patient medically stable to be discharged home today. -He will follow-up with the orthopedic service for monitoring of his wrist fracture. -He shows no evidence of alcohol withdrawal at present. He is ambulating freely around the unit. He is not tremulous or agitated. -He'll follow-up with the neurology service as an outpatient for repeat MRI as indicated given the nonspecific findings noted here. -He has been encouraged to follow-up with his cardiology service as an outpatient. -Bp has been on the higher side during this admission. Lisinopril has beeen added to his regimen he will follow up with his PCP as an out-pt.
[2016-12-13 08:00] VITALS: BP 151/94
[2016-12-13] MEDS ORDERED: NEURONTIN100 M1 PO (09:19)
[2016-12-13] MEDS ORDERED: B-1100 MG PO (09:20)
[2016-12-13] MEDS ORDERED: MECLIZINE HCL12.5 M1 PO ×2 (09:22→09:28)
[2016-12-13] MEDS ORDERED: LISINOPRIL10 M1 PO ×2 (09:22→09:28)
--- NOTE | 2016-12-13 09:25 | Patient Discharge Instructions ---
Discharge Instructions General Discharge Information Special Instructions: Stay Hydrated. Take Meclizine as needed. Avoid alcohol. Schedule an appointment with a neurologist for further evaluation of your symptoms. MRI scan demonstrates several findings that may need follow up with a dedicated high resolution contrast MRI. Start taking lisinopril, follow up with your primary care provider for further control of your high blood pressure. Take tylenol as needed for pain in your hand. Follow up with your orthopedic surgeon for further evaluation. Continue all your previous home medications. Acute Coronary Syndrome Inclusion Criteria At DC or during hospital stay patient has or had the following: ACS DIAGNOSIS No Discharge Core Measures Meds if any: Prescribed or Continued at Discharge Meds if any: NOT Prescribed or Continued at Discharge Congestive Heart Failure Inclusion Criteria At DC or during hospital stay patient has or had the following: CHF DIAGNOSIS No Discharge Core Measures Meds if any: Prescribed or Continued at Discharge Meds if any: NOT Prescribed or Continued at Discharge Cerebrovascular accident Inclusion Criteria At DC or during hospital stay patient has or had the following: CVA/TIA Diagnosis No Discharge Core Measures Meds if any: Prescribed or Continued at Discharge Meds if any: NOT Prescribed or Continued at Discharge Venous thromboembolism Inclusion Criteria VTE Diagnosis No VTE Type NONE VTE Confirmed by (Test) NONE Discharge Core Measures - Per Current guidelines, there needs to be overlap - treatment for the first 5 days of Warfarin therapy. - If discharged on Warfarin prior to 5 days of - overlap therapy, the patient will need to be - assessed for post discharge needs including - *Post discharge parental anticoagulation - *Warfarin and/or parental anticoagulation education - *Follow up date to check INR post discharge At least 5 days overlap therapy as Inpatient No Meds if any: Prescribed or Continued at Discharge Note: Overlap Therapy is Warfarin and Anticoagulant Meds if any: NOT Prescribed or Continued at Discharge
[2016-12-13 10:00] VITALS: BP 151/94
== END 2016-12-13 15:30 | disposition home health service (06) ==
LOC: ERH 14:39 → ERHI 18:18 → 1NO 18:18 → ENRESERV 19:47 → ENTRNSPT 22:23 → 1NO 22:38 → CMPTRNSPT 12-12 07:09 → 1NO 12-12 07:11 → ENPENDDIS 12-13 13:43 → 1NO 12-13 15:30
PROVIDERS: Emergency Medicine; Internal Medicine Hematology & Oncology; ADMIT Student in an Organized Health Care Education/Training Program
DX: R07.89 Other chest pain (principal); F17.200 Nicotine dependence, unspecified, uncomplicated; I10 Essential (primary) hypertension; E78.5 Hyperlipidemia, unspecified; I25.10 Atherosclerotic heart disease of native coronary artery without angina pectoris; I73.9 Peripheral vascular disease, unspecified; I27.2 Other secondary pulmonary hypertension; R42 Dizziness and giddiness; J44.9 Chronic obstructive pulmonary disease, unspecified; F10.239 Alcohol dependence with withdrawal, unspecified; S62.337A Displaced fracture of neck of fifth metacarpal bone, left hand, initial encounter for closed fracture; W19.XXXA Unspecified fall, initial encounter; Z86.711 Personal history of pulmonary embolism
CPT/HCPCS: 70551; 73130-LT; 80307; 81001; 82436; 92610-GN; 93005; 93010; 93306; 96372; 96374; 96375; 96376; 97110-GP; 97116-GP; G0378; G0480; G8996-GN; G8997-GN; G8998-GN; J1650; J3490; J7060; J7508

== ENCOUNTER 2017-12-11 13:21 | Inpatient (IN) | payer OTHER ==
[~2017-12-11] VITALS: Ht 185.4 cm; Wt 75.3 kg
[~2017-12-11 13:21] MED LIST changes: +AMOXICILLIN250 M3 PO; +B-1100 MG PO; +CITALOPRAM HBR40 MG PO; +LISINOPRIL10 M1 PO; +MECLIZINE HCL12.5 M1 PO; +METOPROLOL SUC200 M2 PO; +NEURONTIN100 M1 PO; +PROAIR HFA8.5 GM INH; +PROVENTIL HFA6.7 GM INH; +SYMBICORT 80-10.2 GM INH
--- NOTE | 2017-12-11 13:30 | ED GENERAL ADULT ---
See Addendum History of Present Illness General Chief Complaint: ETOH/Drug Related Complaint Stated Complaint: BIBA FOR ETOH Source: patient Exam Limitations: intoxication Vital Signs & Intake/Output Vital Signs & Intake/Output Vital Signs Date Time Temp Pulse Resp B/P B/P Pulse O2 O2 Flow FiO2 Mean Ox Delivery Rate 12/11 1713 88 18 159/78 100 12/11 1334 96.4 92 20 162/91 95 Room Air Allergies Coded Allergies: NO KNOWN ALLERGIES (10/07/14) Reconcile Medications Albuterol Sulfate (Proventil Hfa) 90 MCG HFA.AER.AD 2 PUF INH PRN RESPIRATORY (Reported) Albuterol Sulfate (Proair Hfa) 90 MCG HFA.AER.AD 2 PUF INH Q4-6 PRN PRN BRONCHITIS Amoxicillin 250 MG CAPSULE 1 CAP PO TID BRONCHITIS Aspirin (Children's Aspirin) 81 MG TAB.CHEW 1 TAB PO DAILY HEART/BLOOD ( Reported) Atorvastatin Calcium 80 MG TABLET 80 MG PO DAILY HYPERLIPIDEMIA Budesonide/Formoterol Fumarate (Symbicort 80-4.5 Mcg Inhaler) 80 MCG-4.5 MCG/ ACTUATION HFA.AER.AD 2 PUF INH BID RESPIRATORY (Reported) Citalopram Hydrobromide (Citalopram HBr) 40 MG TABLET 1 TAB PO DAILY MENTAL HEALTH (Reported) Folic Acid 1 MG TABLET 1 TAB PO DAILY SUPPLEMENT (Reported) Gabapentin (Neurontin) 100 MG CAPSULE 1 CAP PO TID PERIPHERAL NEUROPATHY ( Reported) Lisinopril 10 MG TABLET 10 MG PO DAILY HYPERTENSION Meclizine HCl 12.5 MG TABLET 12.5 MG PO TID PRN VERTIGO Metoprolol Succinate 200 MG TAB.ER.24H 1 TAB PO DAILY HEART/BP (Reported) Thiamine HCl (B-1) 100 MG TABLET 1 TAB PO DAILY SUPPLEMENT (Reported) Tiotropium [place] (Spiriva) 18 MCG CAP.W.DEV 1 CAP INH DAILY PRN BREATHING ( Reported) Triage Nurses Notes Reviewed? yes Onset: Abrupt Duration: unknown duration Timing: unknown HPI: 12/11/17 FOUND BY TRAIN TRACKS INTOXICATED 52-year-old man was brought in by EMS for public intoxication; [place]. He initially denied any complaints related had complained of chest pain. His EKG was normal. (Modesto Werner DO) Past History Travel History Traveled to [place] past 21 day No Medical History Any Pertinent Medical History? 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 MOTHER (Brain Tumor). BROTHER (MS). Hx Contributory? No (Modesto Werner DO) Review of Systems Review of Systems Constitutional: Denies: fever. EENTM: Reports: no symptoms. Respiratory: Denies: short of breath. Cardiovascular: Reports: see HPI. GI: Denies: abdominal pain. Genitourinary: Reports: no symptoms. Musculoskeletal: Reports: no symptoms. Skin: Reports: no symptoms. Neurological/Psychological: Reports: no symptoms. Hematologic/Endocrine: Reports: no symptoms. Immunologic/Allergic: Reports: no symptoms. (Modesto Werner DO) Physical Exam Physical Exam General Appearance: awake, anxious, mild distress Head: atraumatic Eyes: Bilateral: normal appearance, PERRL, EOMI. Ears, Nose, Throat: normal pharynx, normal ENT inspection Neck: normal inspection, supple Respiratory: normal breath sounds, chest non-tender, no respiratory distress Cardiovascular: regular rate/rhythm Peripheral Pulses: 4+ radial (R), 4+ radial (L) Gastrointestinal: soft, non-tender Back: normal range of motion Extremities: normal inspection, normal range of motion, no edema Neurologic/Psych: no motor/sensory deficits, awake, alert, oriented x 3 Skin: intact, normal color, warm/dry Core Measures ACS in differential dx? No CVA/TIA Diagnosis: No Sepsis Present: No Sepsis Focused Exam Completed? No (Modesto Werner DO) Progress Differential Diagnoses I considered the following diagnoses in my evaluation of the patient: [Alcohol intoxication, alcohol withdrawal, alcohol dependency, occult trauma, acute coronary syndrome] Plan of Care: Orders Procedure Date/time Status OXYGEN SETUP (GEN) 12/11 2129 Active Saline Lock 12/[address] in observation 12/11 2129 Active Patient Data 12/11 2129 Active Vital Signs 12/11 2129 Active Activity/Ambulation 12/11 2129 Active Code Status 12/11 2129 Active TROPONIN LEVEL 12/11 185 Complete EKG 12/11 185 Active TROPONIN LEVEL 12/11 1636 Complete EKG 12/11 1622 Active CIWA 12/11 1609 Active CIWA 12/11 142 Active URINE DRUG SCREEN FOR ER ONLY 12/11 142 Complete ETHANOL 12/11 142 Complete COMPREHENSIVE METABOLIC PANEL 12/11 142 Complete CBC WITHOUT DIFFERENTIAL 12/12 1427 Complete Laboratory Tests 12/11/17 1849: Troponin I 0.02 12/11/17 1707: Troponin I 0.02 12/11/17 1456: Anion Gap 15, Estimated GFR > 60, BUN/Creatinine Ratio 15.0, Glucose 92, Calcium 8.7, Total Bilirubin 0.6, AST 41, ALT 24, Alkaline Phosphatase 81, Total Protein 6.5, Albumin 3.9, Globulin 2.6, Albumin/Globulin Ratio 1.5, CBC w Diff NO MAN DIFF REQ, RBC 4.68 L, MCV 97.6 H, MCH 33.1 H, MCHC 33.9, RDW 14.2, MPV 7.4, Gran % 80.1 H, Lymphocytes % 10.0 L, Monocytes % 8.7, Eosinophils % 0.6, Basophils % 0.6, Absolute Granulocytes 7.3 H, Absolute Lymphocytes 0.9 L, Absolute Monocytes 0.8 H, Absolute Eosinophils 0.1, Absolute Basophils 0.1, Serum Alcohol 360.0 12/11/17 1203: Urine Opiates Screen < 100, Methadone Screen < 40, Barbiturate Screen < 60, Ur Phencyclidine Scrn < 6.00, Amphetamines Screen < 100, U Benzodiazepines Scrn < 85, Urine Cocaine Screen < 50, Urine Cannabis Screen 8.70 Initial ED EKG: NSR (Modesto Werner DO) Departure Departure Disposition: STILL A PATIENT Condition: Stable Clinical Impression Primary Impression: Alcohol intoxication Secondary Impressions: Chest pain Referrals: Fadumo Booth MD (PCP/Family) Departure Forms: Customer Survey General Discharge Information Comments Patient was signed out to Dr. Dubois at 7 PM (Modesto Werner DO) Critical Care Note Critical Care Note Critical Care Time: 30-74 min (Modesto Werner DO) ED Attending Observation Initial Observation Note: I have seen and personally examined CÉSAR DICKEY on 12/11/17 at 2131. I agree with the current emergency department documentation. The disposition (admission or discharge) is uncertain at this time, he needs a period of observation for the following reason(s): alcohol dependence and withdrawal The ED Nurse caring for this patient has been personally informed as to what the patient is being observed for. (Silvino MIRANDA,Phill)
[2017-12-11 15:04] LABS: ABSOLUTE BASOPHIL COUNT 0.1 /CUMM (0.0-0.2); ABSOLUTE EOSINOPHIL COUNT 0.1 /CUMM (0.0-0.7); ABSOLUTE GRANULOCYTE CT 7.3 /CUMM (1.4-6.5); ABSOLUTE LYMPH COUNT 0.9 /CUMM (1.2-3.4); ABSOLUTE MONOCYTE COUNT 0.8 /CUMM (0.10-0.60); BASOPHIL % 0.6 % (0.0-2.0); EOSINOPHIL % 0.6 % (0-5); GRANULOCYTE % 80.1 % (42.2-75.2); HEMATOCRIT 45.7 % (42-52); MEAN CORPUSCULAR HGB 33.1 PG (27.0-31.0); MEAN CORPUSCULAR HGB CONC 33.9 G/DL (33.0-37.0); MEAN CORPUSCULAR VOLUME 97.6 FL (80.0-94.0); MEAN PLATELET VOLUME 7.4 FL (7.4-10.4); PLATELET COUNT 161 /CUMM (130-400); RBC DISTRIBUTION WIDTH 14.2 % (11.5-14.5); RED BLOOD CELL CT 4.68 /CUMM (4.70-6.10); WHITE BLOOD CELL COUNT 9.1 /CUMM (4.8-10.8)
[2017-12-11 21:45] VITALS: BP 164/99
[2017-12-11 23:58] VITALS: BP 142/80
[2017-12-12] VITALS (12 sets, daily range): BP systolic 124–154; BP diastolic 65–92
--- NOTE | 2017-12-12 13:14 | History & Physical ---
Tra Peña MD 12/12/17 1313: General Information and HPI History of Present Illness: 52 year old man with past medical history of EtOH abuse, CAD s/p PCI with ALEKSANDRA to RCA x2, Hypertension, hyperlipidemia, Massive PE (2005), and PVD s/p Aorto- femoral bypass brought in by ambulance for public intoxication. Patient reports being in his normal state of health [place] to [place]. He hadn't eaten all day and was sitting in the hot sun drinking vodka. He "blacked out" and does not recall the events that happened until the ED. He was reportedly found lying near the train tracks and was brought in by ambulance/police for public intoxication. Presently he reports chest tightness with mild chest pain when he coughs that wasn't present before yesterday. He had a tremor and reports that he always has "the shakes". Review of Systems Otherwise he denies any headache, fever, chills, blurred / double vision, lightheadedness, dizziness, numbness, tingling, weakness, palpitations, heartburn, shortness of breath, cough, nausea, vomiting, diarrhea, constipation, urinary symptoms. Social History Patient reports smoking 1 pack of "cigarellos" every three days. Each day he drinks a pint of 100 proof vodka. He lasted used marijuana 1 month ago that he thought was "laced". He lives at home with his and daughter in [place]. 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 He is been in multipled alcohol rehab units; most recently [facility] after being hospitalized at [facility] for EtOH for 5 days sometime in the past year. He denies having ever been intubated or been admitted to the ICU for alcohol related issues. Allergies/Medications Allergies: Coded Allergies: NO KNOWN ALLERGIES (10/07/14) Home Med list Albuterol Sulfate (Proventil Hfa) 90 MCG HFA.AER.AD 2 PUF INH PRN RESPIRATORY (Reported) Aspirin (Children's Aspirin) 81 MG TAB.CHEW 1 TAB PO DAILY HEART/BLOOD ( Reported) Folic Acid 1 MG TABLET 1 TAB PO DAILY SUPPLEMENT (Reported) Thiamine HCl (B-1) 100 MG TABLET 1 TAB PO DAILY SUPPLEMENT (Reported) Compliance With Home Meds: POOR Past History Travel History Traveled to [place] past 21 day No Medical History Neurological: NONE EENT: NONE Cardiovascular: CAD, hypertension, hyperlipidemia (PVD), myocardial infarction, STENT Respiratory: asthma, COPD Gastrointestinal: NONE Hepatic: NONE Renal: NONE Musculoskeletal: NONE Psychiatric: alcohol dependence Endocrine: NONE Blood Disorders: NONE Cancer(s): NONE 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 MOTHER (Brain Tumor). BROTHER (MS). Psychosocial History Where do you live? Home Who Do You Live With? spouse, child Services at Home: None Primary Language: Estonian Smoking Status: Current Everyday Smoker ETOH Use: heavy use Illicit Drug Use: marijuana Functional Ability ADLs Independent: dressing, eating, toileting, bathing. Ambulation: independent IADLs Independent: shopping, housework, finances, food prep, telephone, transportation , medication admin. Review of Systems Review of Systems Constitutional: Reports: see HPI. Exam & Diagnostic Data Last 24 Hrs of Vital Signs/I&O Vital Signs Date Time Temp Pulse Resp B/P B/P Pulse O2 O2 Flow FiO2 Mean Ox Delivery Rate /08 1210 Room Air 06/08 1200 98.6 94 18 135/75 06/08 1159 98.6 94 18 135/75 96 Room Air 06/08 1000 99.0 86 18 133/83 06/08 1000 99.0 86 18 133/83 96 Room Air 06/08 0800 98.6 106 18 132/66 06/08 0800 98.6 106 18 132/66 93 06/08 0600 99.0 99 20 139/65 06/08 0600 99.0 99 20 139/65 06/08 0600 99.0 99 20 139/65 93 Room Air 06/08 0416 97 06/08 0347 99.0 104 20 154/92 06/08 0347 99.0 104 20 154/92 93 Room Air 06/08 0155 99.2 105 20 148/86 06/08 0155 99.2 105 20 148/86 94 Room Air 06/07 2358 99.5 105 18 142/80 06/07 2358 99.5 105 18 142/80 94 Room Air 12/11 2157 98.9 105 18 168/99 12/11 2145 98.9 105 18 164/99 12/11 2145 98.9 105 18 164/99 94 Room Air 12/11 1713 88 18 159/78 100 Intake & Output 12/12 1600 06/08 0800 06 0000 Intake Total Output Total Balance Patient 79.379 kg Weight Physical Exam General Appearance Alert, Oriented X3, Cooperative, No Acute Distress Skin No Rashes, No Breakdown, No Significant Lesion Skin Temp/Moisture Exam: Warm/Dry Sepsis Skin Exam (color): Normal for Ethnicity HEENT Atraumatic, EOMI, Mucous Membr. moist/pink Neck Supple Cardiovascular Regular Rate, Normal S1, Normal S2, No Murmurs Lungs Diffuse scattered rhonchi Abdomen Normal Bowel Sounds, Soft, No Tenderness, No Hepatospenomegaly, No Masses Neurological Normal Gait, Normal Speech, Normal Tone, Cranial Nerves 3-12 NL Extremities No Clubbing, No Cyanosis, No Edema, Normal Pulses, No Tenderness/ Swelling Vascular Normal Pulses, Pulses Symmetrical Last 24 Hrs of Labs/Simeon: Laboratory Tests 12/11/17 1849: Troponin I 0.02 12/11/17 1707: Troponin I 0.02 12/11/17 1456: Anion Gap 15, Estimated GFR > 60, BUN/Creatinine Ratio 15.0, Glucose 92, Calcium 8.7, Total Bilirubin 0.6, AST 41, ALT 24, Alkaline Phosphatase 81, Total Protein 6.5, Albumin 3.9, Globulin 2.6, Albumin/Globulin Ratio 1.5, CBC w Diff NO MAN DIFF REQ, RBC 4.68 L, MCV 97.6 H, MCH 33.1 H, MCHC 33.9, RDW 14.2, MPV 7.4, Gran % 80.1 H, Lymphocytes % 10.0 L, Monocytes % 8.7, Eosinophils % 0.6, Basophils % 0.6, Absolute Granulocytes 7.3 H, Absolute Lymphocytes 0.9 L, Absolute Monocytes 0.8 H, Absolute Eosinophils 0.1, Absolute Basophils 0.1, Serum Alcohol 360.0 Assessment/Plan Assessment: 52 year old man with multiple medical problems signficant for EtOH abuse, CAD s/ p ALEKSANDRA to RCAx2, Massive PE (2005), hypertension, hyperlipidemia, and PVD s/p Aorto-femoral bypass brought in by EMS for public intoxication. Presently patient is complaining of chest tightness with mild pain when coughing. Vitals are unremarkable. Physical exam is significant for tremor and diffuse course rhonchi with left sided back tenderness without deformity or injury. Labs including CBC, BMP, LFTs and Troponin x2 are unremarkable; EtOH Level was 360 and utox otherwise negative. EKG demonstrated old QS waves in V1- S2 but is otherwise unremarkable. CIWA scored ranged 6-10. No ativan was given in the ED but patient was given clonidine, gabapentin, supplements, and two duoned treatments. Clinically patients appears to have had transient altered mental status secondary to excessive alcohol ingestion without eating while sitting in the heat waiting for the train. His chest tightness with course rhonchi may represent that of aspiration pneumonia, however he otherwise has no current objective evidence of infection. Patient is to be admitted to the general medicine floor and started on scheduled doses of ativan with additional doses as needed per CIWA scoring in addition to vitamin supplements. Psychiatry and social work consults are to be placed. PA/Lateral chest x-ray is to be obtained to asses for any signs of developing pneumonia. He may require cultures and antibiotics. Problem List -Altered mental status, now resolved -EtOH intoxication with withdrawal -Chest tightness with rhonchi in context of AMS/ETOH, possible aspiration pneumonia -History of EtOH Abuse -Hypertension -Hyperlipidemia -CAD s/p ALEKSANDRA to RCA x2 -PVD s/p Aorto-femoral bypass -Massive PE (2005) Plan -Admit to general medicine -TRC with Nebs PRN -Ativan 2 mg PO Q6H -Ativan PRN per CIWA -Thiamine / Folate / Multivitamin -Continue clonidine and gabapentin, titrate as needed -Continue home meds: Aspirin, Folic acid -Consults with Psychiatry and Social work for EtOH abuse -Check CPK, Coags, UA, Magnesium -Obtain PA/Lateral chest x-ray -Obtain blood cultures and start unasyn if chest x-ray suggests pneumonia or if signs of infection develop -Pain control with acetaminophen -Regular Diet -DVT prophylaxis with subcutaneous heparin -FULL CODE As Ranked By This Provider Problem List: 1. Alcohol intoxication Core Measures/Misc (03/23) Acute Coronary Syndrome ACS Diagnosis: No Congestive Heart Failure Congestive Heart Failure Diagnosis No Cerebrovascular Accident CVA/TIA Diagnosis: No VTE (View Protocol) VTE Risk Factors Age>40 No Mechanical VTE Prophylaxis d/t N/A MechProphylax Ordered No VTE Pharm Prophylaxis d/t NA PharmProphylax ordered Sepsis (View protocol) Sepsis Present: No If YES complete Sepsis Event Note If YES complete Sepsis Event Note Rizwan Hernandez MD 12/12/17 1727: Core Measures/Misc (03/23) Sepsis (View protocol) If YES complete Sepsis Event Note If YES complete Sepsis Event Note Attending MD Review Statement Attending Statement Attending MD Statement: examined this patient, discuss w/resident/PA/CIGARETTE MACHINES MECHANIC, agreed w/resident/PA/CIGARETTE MACHINES MECHANIC, reviewed EMR data (avail), reviewed images, amended to note Attending Assessment/Plan: The patient is a 52 yo male with h/o CAD (s/p PCI/ALEKSANDRA-RCA x2), COPD, HTN, HL, h /o PE (2005), PVD (s/p aorto-fem bypass) and EtOH abuse who presented in the ED after [place]. He had been lying in the sun drinking vodka and not eating. He is amnestic of the events until he "woke up" in the ED. He did report some chest tightness when he coughed and was noted to be wheezing. He stated he had not taken his usualy inhalers. He was tremulous and sted he "always has the shakes". He is a current smoker and drinks 1 pint of vodka daily. He has had multiple alcohol rehab stays in [place], [place], [place], etc. Most recently he was at [facility]. He has no h/o seizures. Physical Exam: VS: T 98.9-99.0, P 88-105, BP 159/78-135/75, PO 96% RA HEENT: eyes- PERRLA, EOMI, non-icteric sclera delia- dry mucous membranes Neck: supple, no adenopathy or bruits Chest: Mild expiratory wheeze, mild diffuse rhonchi which diminish post cough Abd: BS_, soft, NT, - masses, ? sl firm liver edge Ext: no edema, pulses 1+, warm Neuro: alert & oriented x 3, non-focal exam, mild tremor UE Labs/Tests - as above. Impression/Plan: #EtoH Dependence and Withdrawal- patient found on street as above. Has had multiple prior detoxes, last at [place]/[facility]. Agrees with detox. Plan: Admit to medical service. Ativan, MVI, thiamine, folate, etc. as per detox protocol. Social service consult. #Chest Tightness/Cough/COPD- with rhonchi. CXR clear, however may have aspirated during episode of mental status change/decreased sensorium secondary to intoxication. Plan: Will observe for further signs of infection and consider Unasyn IV if spikes a fever. Continue Symbicort/Spiriva- Albuterol aerosol TDP #HTN- BP as above. Plan: Would restart Lisinopril/Metoprolol. Discontinue Clonidine. #CAD/PVD- as above, patient had some chest discomfort that appears non-cardiac. Plan: Continue Metoprolol, ASA, Lisinopril, Atorvastatin.
[2017-12-12 14:30] LABS: PT 10.2 SEC (9.4-12.5); PTT 27 SEC (25-37)
--- NOTE | 2017-12-12 14:49 | RADIOLOGY REPORT ---
EXAMINATION: XR CHEST CLINICAL INFORMATION: Assess for pneumonia versus effusions. Shortness of breath, chest tightness, AMS, EtOH intoxication. Possible aspiration. COMPARISON: Several prior chest x-rays, most recent of which is dated 11/18/2017. TECHNIQUE: 2 views of the chest were obtained on 4 images. FINDINGS: The cardiomediastinal silhouette is within normal limits in size. Lungs bilaterally are symmetrically hyperinflated with flattening of the hemidiaphragms and increase in retrosternal airspace, consistent with obstructive lung disease. Thickening of the central airways is seen. As noted previously, the intrathoracic trachea is diffusely narrowed in the transverse dimension, consistent with a saber sheath trachea. No focal consolidation, effusion or pneumothorax is seen. Bony structures are unremarkable. IMPRESSION: Findings are consistent with obstructive lung disease. No focal acute process.
--- NOTE | 2017-12-12 17:53 | Admission Certification ---
Admission Certification Certification Statement - As attending physician, I certify that at the time of - admission, based on clinical presentation, severity of - symptoms, need for further diagnostic testing and - therapeutic interventions, and risk of adverse outcomes - without in-hospital treatment, in my clinical assessment, - this patient requires an acute hospital stay for a minimum - of two nights or longer. I have also considered psychsocial - factors such as support system, advanced age, financial - issues, cognitive issues, and failed out-patient treatments, - past re-admission history, safety of patient, and lack of - compliance as applicable. Specific rationale supporting this admission is: The patient presents with alcohol dependence and withdrawal, rhonchi on chest exam, chest discomfort, needs admission for alcohol detox. Ativan, MVI, thiamine , etc. as per protocol, social service consult. Also albuterol aerosol, etc. Close respiratory monitoring for possible aspiration.
[2017-12-13 06:00] VITALS: BP 122/82
[2017-12-13 08:00] VITALS: BP 124/78
[2017-12-13 08:27] LABS: ABSOLUTE BASOPHIL COUNT 0 /CUMM (0.0-0.2); ABSOLUTE EOSINOPHIL COUNT 0.1 /CUMM (0.0-0.7); ABSOLUTE GRANULOCYTE CT 5.9 /CUMM (1.4-6.5); ABSOLUTE LYMPH COUNT 0.7 /CUMM (1.2-3.4); ABSOLUTE MONOCYTE COUNT 0.7 /CUMM (0.10-0.60); BASOPHIL % 0.4 % (0.0-2.0); EOSINOPHIL % 1.9 % (0-5); GRANULOCYTE % 78.9 % (42.2-75.2); HEMATOCRIT 42.7 % (42-52); MEAN CORPUSCULAR HGB 33.5 PG (27.0-31.0); MEAN CORPUSCULAR HGB CONC 34.3 G/DL (33.0-37.0); MEAN CORPUSCULAR VOLUME 97.7 FL (80.0-94.0); MEAN PLATELET VOLUME 8.6 FL (7.4-10.4); PLATELET COUNT 130 /CUMM (130-400); RED BLOOD CELL CT 4.37 /CUMM (4.70-6.10); WHITE BLOOD CELL COUNT 7.4 /CUMM (4.8-10.8)
--- NOTE | 2017-12-13 08:31 | PN- Housestaff ---
Subjective Follow-up For: alcohol detox Subjective: patient seen and examined. feels better. slept well overnight. offers no complaints. Review of Systems Constitutional: Reports: no symptoms. Objective Last 24 Hrs of Vital Signs/I&O Vital Signs Date Time Temp Pulse Resp B/P B/P Pulse O2 O2 Flow FiO2 Mean Ox Delivery Rate 12/14 923 88 124/78 12/13 0924 88 124/78 12/13 0830 94 Room Air / 0800 88 18 124/78 12/13 0800 94 / 06 99.1 81 20 122/82 06/ 0600 99.1 81 20 122/82 92 Room Air 06/09 0000 Room Air 06/08 2200 98.6 86 18 124/80 06/08 2134 98.6 86 18 124/80 93 06/08 2000 98.5 92 18 141/76 06/08 1945 92 141/76 06/08 1940 98.5 92 18 141/76 91 Room Air 06/08 1834 Room Air 06/08 1531 98.2 95 18 152/88 97 06/08 1530 Room Air 06/08 1450 98.5 95 18 139/81 95 06/08 1446 145/75 06/08 1423 Room Air 06/08 1422 94 18 145/75 06/08 1413 94 18 145/75 96 Room Air 06/08 1410 98 Intake & Output / 1600 / 0800 06/09 0000 Intake Total 120 250 Output Total 280 300 Balance -160 -50 Intake, Oral 120 250 Output, Urine 280 300 Patient 164 lb Weight Weight Bed scale Measurement Method Physical Exam General Appearance: Alert, Oriented X3, Cooperative, Mild Distress Skin: No Rashes, No Breakdown Skin Temp/Moisture Exam: Warm/Dry Sepsis Skin Exam (color): Normal for Ethnicity HEENT: Atraumatic Cardiovascular: Normal S1, Normal S2, No Murmurs Lungs: Clear to Auscultation, Normal Air Movement Abdomen: Soft, No Tenderness Neurological: Normal Speech Extremities: No Clubbing, No Cyanosis, No Edema Assessment/Plan Assessment: 52 year old man with multiple medical problems signficant for EtOH abuse, CAD s/ p ALEKSANDRA to RCAx2, Massive PE (2005), hypertension, hyperlipidemia, and PVD s/p Aorto-femoral bypass brought in by EMS for public intoxication. Assessment: Altered mental status, now resolved EtOH intoxication with withdrawal History of Hypertension History of Hyperlipidemia Plan: Decrease Ativan to 1.5mg q6 Ativan PRN per CIWA Thiamine / Folate / Multivitamin Continue gabapentin Continue home meds: Aspirin, Folic acid Consults with Psychiatry and Social work for EtOH abuse Replete electrolytes as needed Pain control with acetaminophen Regular Diet DVT prophylaxis with subcutaneous heparin FULL CODE Problem List: 1. Alcohol intoxication Pain Ratin Pain Location: none Pain Goal: Remain pain free Pain Plan: none Tomorrow's Labs & Rationales: BEP, Mg
--- NOTE | 2017-12-13 08:45 | PN- Att Addend ---
Attending Addendum Attending Brief Note Patient seen and examined. Plan of care discussed with the medical team and the patient. Available lab work and radiology test reports were reviewed. Patient currently awake and eating his breakfast. He denies any headache any seizures or any tremors. He does not report any chest pain or difficulty breathing. Assessment * Alcohol use disorder * Alcohol withdrawal * hx CAD * hx COPD * hx of PE Plan * Decrase ativan to 1.5mg Q6 today * continue CIWA protocol * Follow on CBC results Exam: General: Patient awake alert oriented without any distress CVS: S1 plus S2 without any murmur or gallops Chest: Few scattered crepitation without any wheeze. There is no respiratory distress. 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 without any focal neuro deficit and follows commands appropriately; No tremors noted; Extremities: No edema; no clubbing or cyanosis noted Current Medications Sig/Yung Start time Last Medication Dose Route Stop Time Status Admin Acetaminophen 650 MG Q6P PRN 12/12 1315 AC PO Albuterol Sulfate 3 ML BID 12/12 2100 AC 12/13 INH 0802 Albuterol Sulfate 3 ML Q6P PRN 12/12 1415 AC INH Albuterol Sulfate 3 ML ONCE ONE 12/12 1215 DC 12/12 INH 12/12 1216 1359 Aspirin 81 MG DAILY 12/13 0800 AC PO Atorvastatin Calcium 40 MG 1700 12/13 1700 AC PO Budesonide/ 2 PUF BID 12/12 2100 AC 12/12 Formoterol Fumarate INH 2154 Clonidine 0 .STK-MED ONE 12/12 1437 DC PO Clonidine 0.1 MG Q8 12/11 2200 DC 12/12 PO 1446 Folic Acid 1 MG DAILY 12/11 2200 AC 12/11 PO 2157 Gabapentin 0 .STK-MED ONE 12/12 1437 DC PO Gabapentin 300 MG Q8 12/11 2200 AC 12/13 PO 0531 Heparin Sodium 5,000 UNIT Q8 12/12 1400 AC 12/13 (Porcine) SC 0531 Ipratropium [place] 2.5 ML ONCE ONE 12/12 1215 DC 12/12 INH 12/12 1216 1358 Lisinopril 10 MG DAILY 12/13 0800 AC PO Lorazepam 0 .STK-MED ONE 12/12 1438 DC PO Lorazepam 2 MG Q6 12/12 1321 12/13 PO 0531 Lorazepam 2 MG Q2P PRN 12/12 1145 AC IV Lorazepam 1 MG Q2P PRN 12/12 1145 AC IV Magnesium Oxide 400 MG BID 12/12 1530 AC 12/12 PO 2155 Metoprolol Succinate 100 MG DAILY 12/12 1813 12/12 PO 1945 Multivitamins 1 TAB DAILY 12/11 2200 AC 12/11 PO 2158 Ondansetron HCl 4 MG Q8P PRN 12/12 1315 AC IV Thiamine HCl 100 MG DAILY 12/11 2145 12/11 PO 215 Tiotropium [place] 1 PUF DAILY 12/12 181 AC 12/12 INH 1946 Laboratory Tests 12/13/17 0705: Anion Gap 7, Estimated GFR > 60, BUN/Creatinine Ratio 15.0, Magnesium 1.7, CBC w Diff Pending, WBC Pending, RBC Pending, Hgb Pending, Hct Pending, MCV Pending, MCH Pending, MCHC Pending, RDW Pending, Plt Count Pending, MPV Pending 12/12/17 2234: Urinalysis LIGHT H, Urine Color YEL, Urine Clarity CLEAR, Urine pH 8.0, Ur Specific [place] 1.015, Urine Protein 30 H, Urine Ketones NEG, Urine Nitrite NEG, Urine Bilirubin NEG, Urine Urobilinogen 2.0 H, Ur Leukocyte Esterase NEG, Ur Microscopic SEDIMENT EXAMINED, Urine RBC RARE, Urine WBC RARE, Ur Epithelial Cells FEW, Urine Mucus RARE, Urine Hemoglobin NEG, Urine Glucose NEG 12/12/17 1400: Magnesium 1.6, Creatine Kinase 206 H, PT 10.2, INR 0.94, APTT 27 12/11/17 1849: Troponin I 0.02 12/11/17 1707: Troponin I 0.02 12/11/17 1456: Anion Gap 15, Estimated GFR > 60, BUN/Creatinine Ratio 15.0, Glucose 92, Calcium 8.7, Total Bilirubin 0.6, AST 41, ALT 24, Alkaline Phosphatase 81, Total Protein 6.5, Albumin 3.9, Globulin 2.6, Albumin/Globulin Ratio 1.5, CBC w Diff NO MAN DIFF REQ, RBC 4.68 L, MCV 97.6 H, MCH 33.1 H, MCHC 33.9, RDW 14.2, MPV 7.4, Gran % 80.1 H, Lymphocytes % 10.0 L, Monocytes % 8.7, Eosinophils % 0.6, Basophils % 0.6, Absolute Granulocytes 7.3 H, Absolute Lymphocytes 0.9 L, Absolute Monocytes 0.8 H, Absolute Eosinophils 0.1, Absolute Basophils 0.1, Serum Alcohol 360.0 12/11/17 1203: Urine Opiates Screen < 100, Methadone Screen < 40, Barbiturate Screen < 60, Ur Phencyclidine Scrn < 6.00, Amphetamines Screen < 100, U Benzodiazepines Scrn < 85, Urine Cocaine Screen < 50, Urine Cannabis Screen 8.70 Vital Signs Date Time Temp Pulse Resp B/P B/P Pulse O2 O2 Flow FiO2 Mean Ox Delivery Rate 12/13 0830 94 Room Air / 0600 99.1 81 20 122/82 / 0600 99.1 81 20 122/82 92 Room Air 06/09 0000 Room Air 06/08 2200 98.6 86 18 124/80 06/08 2134 98.6 86 18 124/80 93 06/08 2000 98.5 92 18 141/76 06/08 1945 92 141/76 06/08 1940 98.5 92 18 141/76 91 Room Air 06/08 1834 Room Air 06/08 1531 98.2 95 18 152/88 97 06/08 1530 Room Air 06/08 1450 98.5 95 18 139/81 95 06/08 1446 145/75 06/08 1423 Room Air 06/08 1422 94 18 145/75 06/08 1413 94 18 145/75 96 Room Air 06/08 1410 98 06/08 1210 Room Air 06/08 1200 98.6 94 18 135/75 06/08 1159 98.6 94 18 135/75 96 Room Air 06/08 1000 99.0 86 18 133/83 06/08 1000 99.0 86 18 133/83 96 Room Air Intake & Output 12/13 1600 09 0800 06/ 0000 Intake Total 120 250 Output Total 280 300 Balance -160 -50 Intake, Oral 120 250 Output, Urine 280 300 Patient 164 lb Weight Weight Bed scale Measurement Method
[2017-12-13 15:01] VITALS: BP 104/62
[2017-12-13 21:44] VITALS: BP 112/68
[2017-12-14 06:14] VITALS: BP 134/85
[2017-12-14 08:00] VITALS: BP 127/64
--- NOTE | 2017-12-14 08:42 | PN- Housestaff ---
Subjective Follow-up For: Alcohol withdrawal Subjective: Patient seen and examined. He is seen lying on his side resting comfortably in bed. He appears to be in no acute distress. He reports feeling "much better" than when he came in but does admit that he has some persistent chest tightness that he attributes to his "lungs". He denies any chest pain, palpitations, cough, or associated shortness of breath. Review of Systems Constitutional: Reports: see HPI. Objective Last 24 Hrs of Vital Signs/I&O Vital Signs Date Time Temp Pulse Resp B/P B/P Pulse O2 O2 Flow FiO2 Mean Ox Delivery Rate 12/14 0836 90 124/64 12/14 0835 90 124/64 12/14 0614 98.9 85 20 134/85 95 12/14 0000 93 Room Air 12/13 2144 99.8 95 20 112/68 91 Room Air 12/13 1934 95 Room Air 12/13 1600 Room Air 12/13 1501 98.1 78 20 104/62 92 Room Air Intake & Output 12/14 1600 12/14 0800 12/14 0000 Intake Total 120 820 Output Total 550 400 Balance -430 420 Intake, IV 100 Intake, Oral 120 720 Number 0 Bowel Movements Output, Urine 550 400 Patient 75.325 kg Weight Weight Bed scale Measurement Method Physical Exam General Appearance: Alert, Oriented X3, Cooperative, No Acute Distress Other Physical Findings: General - well developed, well nourished middle aged man in no acute distress HEENT - NCAT, PERRL, EOMI, anicteric sclera Neck- Supple, no JVD/HJR, no bruits, trachea midline, thyroid normal Cardio - S1, S2 w/o murmurs/gallops/rubs; regular rate and rhythm Resp -mild bibasilar rhonchi without crackles GI - Soft, nontender, nondistended, bowel sounds present Neuro - Awake and alert, CN II - XII grossly intact Extremities - No edema, pulses intact Current Medications: Current Medications Sig/Yung Start time Last Medication Dose Route Stop Time Status Admin Acetaminophen 650 MG Q6P PRN 12/12 1315 AC PO Albuterol Sulfate 3 ML BID 12/12 2100 AC 12/14 INH 0813 Albuterol Sulfate 3 ML Q6P PRN 12/12 1415 AC INH Aspirin 81 MG DAILY 12/13 09 AC 12/14 PO 0835 Atorvastatin Calcium 40 MG 1700 12/13 1700 AC 12/13 PO 1825 Budesonide/ 2 PUF BID 12/12 2100 AC 12/14 Formoterol Fumarate INH 0835 Folic Acid 1 MG DAILY 12/11 2200 AC 12/14 PO 0835 Gabapentin 300 MG Q8 12/11 2200 AC 12/14 PO 0556 Guaifenesin 600 MG Q12 12/14 0900 AC PO Heparin Sodium 5,000 UNIT Q8 12/12 1400 AC 12/14 (Porcine) SC 0556 Lisinopril 10 MG DAILY 12/13 0900 AC 12/14 PO 0835 Lorazepam 1 MG Q6 12/14 1200 AC PO Lorazepam 1.5 MG Q6 12/13 1800 DC 12/14 PO 0555 Lorazepam 2 MG Q6 12/12 1321 DC 12/13 PO 1140 Lorazepam 2 MG Q2P PRN 12/12 1145 AC IV Lorazepam 1 MG Q2P PRN 12/12 1145 AC IV Magnesium Oxide 400 MG BID 12/12 1530 DC 12/13 PO 0923 Magnesium Sulfate 1 GM ONCE ONE 12/13 1245 DC 12/13 Dextrose/Water 100 ML IV 12/13 1644 1345 Metoprolol Succinate 100 MG DAILY 12/12 1813 AC 12/14 PO 0836 Multivitamins 1 TAB DAILY 12/11 2200 AC 12/14 PO 0835 Ondansetron HCl 4 MG Q8P PRN 12/12 1315 AC IV Thiamine HCl 100 MG DAILY 12/11 2145 AC 12/14 PO 0836 Tiotropium [place] 1 PUF DAILY 12/12 1813 AC 12/14 INH 0835 Last 24 Hrs of Lab/Simeon Results Last 24 Hrs of Labs/Mics: Laboratory Tests 12/14/17 0744: Anion Gap 8, Estimated GFR > 60, BUN/Creatinine Ratio 15.6, Magnesium 1.8 Assessment/Plan Assessment: 52 year old man with multiple medical problems signficant for EtOH abuse, CAD s/ p ALEKSANDRA to RCAx2, Massive PE (2005), hypertension, hyperlipidemia, and PVD s/p Aorto-femoral bypass brought in by EMS for public intoxication admitted for alcohol detox. Patient continues to feel well but does admit to persistent chest discomfort. His vital signs are within normal limits and physical exam is only remarkable for bibasilar rhonchi that is improved from the day of admission. Labs including serum chemistry demonstrate a mild hyponatremia and hypomagnesemia likely due to his nutritional deficiencies secondary to his alcoholism; magnesium is repleted orally. Patient CIWA scores in the past 24 hours range 0- 6 requiring no additional doses of Ativan. His scheduled dose of Ativan is decreased to 1 mg every 6 hours. Psychiatry and social work evaluation still pending. Patient would ideally like to be discharged to an alcohol rehabilitation program such as [facility]. Problem List -Altered mental status, now resolved -EtOH intoxication with withdrawal, improving -Chest tightness, unclear etiology possibly due to seasonal allergies -History of EtOH Abuse -Hypertension -Hyperlipidemia -CAD s/p ALEKSANDRA to RCA x2 -PVD s/p Aorto-femoral bypass -Massive PE (2005) Plan -Continue general medicine admission -TRC with Nebs PRN -Decrease Ativan to 1 mg PO Q6H -Ativan PRN per CIWA -Thiamine / Folate / Multivitamin -Mucinex 600 mg p.o. twice daily -Continue clonidine and gabapentin, titrate as needed -Continue home meds: Aspirin, Folic acid, metoprolol, Symbicort, Spiriva, atorvastatin, lisinopril -Consults with Psychiatry and Social work for EtOH abuse -Pain control with acetaminophen -Regular Diet -DVT prophylaxis with subcutaneous heparin -FULL CODE Problem List: 1. Alcohol intoxication 2. Bronchitis Pain Ratin Pain Location: None Pain Goal: Remain pain free Pain Plan: See assessment Tomorrow's Labs & Rationales: None
--- NOTE | 2017-12-14 11:42 | PN- Att Addend ---
Attending Addendum Attending Brief Note Patient seen and examined. Plan of care discussed with the medical team and the patient. Available lab work and radiology test reports were reviewed. Patient currently awake and eating his breakfast. He denies any headache any seizures or any tremors. He does not report any chest pain or difficulty breathing. Assessment * Alcohol use disorder * Alcohol withdrawal * hx CAD * hx COPD * hx of PE Plan * Decrase ativan to 1mg Q6 today * continue CIWA protocol * No need to check labs tomorrow Exam: General: Patient awake alert oriented without any distress CVS: S1 plus S2 without any murmur or gallops Chest: Few scattered crepitation without any wheeze. There is no respiratory distress. 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 deficit and follows commands appropriately; No tremors noted; Extremities: No edema; no clubbing or cyanosis noted; patient has a blue discoloration of nail which is from his work Current Medications Sig/Yung Start time Last Medication Dose Route Stop Time Status Admin Acetaminophen 650 MG Q6P PRN 12/12 1315 AC PO Albuterol Sulfate 3 ML BID 12/12 2100 AC 12/14 INH 0813 Albuterol Sulfate 3 ML Q6P PRN 12/12 1415 AC INH Aspirin 81 MG DAILY 12/13 0900 AC 12/14 PO 0835 Atorvastatin Calcium 40 MG 1700 12/13 1700 AC 12/13 PO 1825 Budesonide/ 2 PUF BID 12/12 2100 AC 12/14 Formoterol Fumarate INH 0835 Folic Acid 1 MG DAILY 12/11 2200 AC 12/14 PO 0835 Gabapentin 300 MG Q8 12/11 2200 AC 12/14 PO 0556 Guaifenesin 600 MG Q12 12/14 0900 AC 12/14 PO 1019 Heparin Sodium 5,000 UNIT Q8 12/12 1400 AC 12/14 (Porcine) SC 0556 Lisinopril 10 MG DAILY 12/13 0900 AC 12/14 PO 0835 Lorazepam 1 MG Q6 12/14 1200 AC PO Lorazepam 1.5 MG Q6 12/13 1800 DC 12/14 PO 0555 Lorazepam 2 MG Q6 12/12 1321 DC 12/13 PO 1140 Lorazepam 2 MG Q2P PRN 12/12 1145 AC IV Lorazepam 1 MG Q2P PRN 12/12 1145 AC IV Magnesium Oxide 400 MG DAILY 12/14 1013 AC PO Magnesium Oxide 400 MG BID 12/12 1530 DC 12/13 PO 0923 Magnesium Sulfate 1 GM ONCE ONE 12/13 1245 DC 12/13 Dextrose/Water 100 ML IV 12/13 1644 1345 Metoprolol Succinate 100 MG DAILY 12/12 1813 AC 12/14 PO 0836 Multivitamins 1 TAB DAILY 12/11 2200 AC 12/14 PO 0835 Ondansetron HCl 4 MG Q8P PRN 12/12 1315 AC IV Thiamine HCl 100 MG DAILY 12/11 2145 AC 12/14 PO 0836 Tiotropium [place] 1 PUF DAILY 12/12 181 AC 12/14 INH 0835 Laboratory Tests 12/14 0644 Chemistry Sodium (137 - 145 mmol/L) 136 L Potassium (3.5 - 5.1 mmol/L) 4.5 Chloride (98 - 107 mmol/L) 103 Carbon Dioxide (22 - 30 mmol/L) 26 Anion Gap (5 - 16) 8 BUN (9 - 20 mg/dL) 14 Creatinine (0.7 - 1.2 mg/dL) 0.9 Estimated GFR (>60 ml/min) > 60 BUN/Creatinine Ratio (7 - 25 %) 15.6 Magnesium (1.6 - 2.3 mg/dL) 1.8 Vital Signs Date Time Temp Pulse Resp B/P B/P Pulse O2 O2 Flow FiO2 Mean Ox Delivery Rate 12/15 0736 90 124/64 12/14 0835 90 124/64 12/14 0800 90 18 127/64 12/14 0800 94 Room Air 12/14 0614 98.9 85 20 134/85 95 12/14 0000 93 Room Air 12/13 2144 99.8 95 20 112/68 91 Room Air 12/13 1934 95 Room Air 12/13 1600 Room Air 12/13 1501 98.1 78 20 104/62 92 Room Air Intake & Output 12/14 1600 12/14 0800 12/14 0000 Intake Total 120 820 Output Total 550 400 Balance -430 420 Intake, IV 100 Intake, Oral 120 720 Number 0 Bowel Movements Output, Urine 550 400 Patient 166 lb Weight Weight Bed scale Measurement Method
[2017-12-14 13:57] VITALS: BP 134/78
[2017-12-14 14:00] VITALS: BP 134/78
[2017-12-14 16:00] VITALS: BP 134/78
[2017-12-14 22:10] VITALS: BP 120/64
[2017-12-15 06:18] VITALS: BP 160/88
--- NOTE | 2017-12-15 08:04 | PN- Housestaff ---
See Addendum Subjective Follow-up For: Alcohol withdrawal Subjective: Patient seen and examined. 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 He seemed confused to me as well. He also seems to be impulsive. On interview he denied fever, chill, shortness of breath or Pain. Review of Systems Constitutional: Reports: see HPI. Objective Last 24 Hrs of Vital Signs/I&O Vital Signs Date Time Temp Pulse Resp B/P B/P Pulse O2 O2 Flow FiO2 Mean Ox Delivery Rate 12/15 0800 Room Air Room Air 12/15 0618 98.2 83 24 160/88 93 12/15 0000 Room Air 12/14 2210 98.4 89 20 120/64 91 Room Air 12/14 1919 95 Room Air Room Air 12/14 1600 Room Air 12/14 1600 98.0 85 20 134/78 12/14 1400 85 134/78 12/14 1357 98.0 85 20 134/78 94 Room Air Intake & Output 12/15 1600 12/15 0800 12/15 0000 Intake Total 480 600 Output Total 500 250 Balance -20 350 Intake, Oral 480 600 Output, Urine 500 250 Physical Exam General Appearance: Alert, Cooperative, No Acute Distress Cardiovascular: Regular Rate, Normal S1, Normal S2 Lungs: b/l rhonchi Current Medications: Current Medications Sig/Yung Start time Last Medication Dose Route Stop Time Status Admin Acetaminophen 650 MG Q6P PRN 12/12 1315 AC PO Albuterol Sulfate 3 ML BID 12/12 2100 AC 12/14 INH 1916 Albuterol Sulfate 3 ML Q6P PRN 12/12 1415 AC INH Aspirin 81 MG DAILY 12/13 0900 AC 12/15 PO 0850 Atorvastatin Calcium 40 MG 1700 12/13 1700 AC 12/14 PO 1804 Budesonide/ 2 PUF BID 12/12 2100 AC 12/15 Formoterol Fumarate INH 0849 Folic Acid 1 MG DAILY 12/11 2200 AC 12/15 PO 0849 Gabapentin 300 MG Q8 12/11 2200 AC 12/15 PO 0506 Guaifenesin 600 MG Q12 12/14 0900 AC 12/15 PO 0850 Heparin Sodium 5,000 UNIT Q8 12/12 1400 AC 12/15 (Porcine) SC 0506 Lisinopril 10 MG DAILY 12/13 0900 AC 12/15 PO 0850 Lorazepam 1 MG Q6 12/14 1200 AC 12/15 PO 0507 Lorazepam 2 MG Q2P PRN 12/12 1145 AC IV Lorazepam 1 MG Q2P PRN 12/12 1145 AC 12/15 IV 0143 Magnesium Oxide 400 MG DAILY 12/14 1013 AC 12/15 PO 0849 Metoprolol Succinate 100 MG DAILY 12/12 1813 AC 12/15 PO 0850 Multivitamins 1 TAB DAILY 12/11 2200 AC 12/15 PO 0850 Ondansetron HCl 4 MG Q8P PRN 12/12 1315 AC IV Thiamine HCl 100 MG DAILY 12/11 2145 AC 12/15 PO 0850 Tiotropium [place] 1 PUF DAILY 12/12 1813 AC 12/15 INH 0850 Assessment/Plan Assessment: 52 year old man with multiple medical problems signficant for EtOH abuse, CAD s/ p ALEKSANDRA to RCAx2, Massive PE (2005), hypertension, hyperlipidemia, and PVD s/p Aorto-femoral bypass brought in by EMS for public intoxication admitted for alcohol detox. Continues to be confused this morning. Problem List -Altered mental status- slowly improving -EtOH intoxication with withdrawal -Hypertension -Hyperlipidemia -CAD s/p ALEKSANDRA to RCA x2 -PVD s/p Aorto-femoral bypass -Massive PE (2005) Plan -Continue on general medicine floor -TRC with Nebs PRN and with MDI of symbicort, spirva and albuterol -will continue Ativan to 1 mg PO Q6H today and reassess rachel -Ativan PRN per CIWA -ContinueThiamine / Folate / Multivitamin -Mucinex 600 mg p.o. twice daily -Continue gabapentin -Continue home meds: Aspirin, Folic acid, metoprolol, atorvastatin, lisinopril -Consults with Psychiatry and Social work for EtOH abuse -Pain control with acetaminophen -Regular Diet -DVT prophylaxis with subcutaneous heparin -FULL CODE Problem List: 1. Alcohol intoxication Pain Ratin Pain Location: na Pain Goal: Pain 4 or less Pain Plan: current regimen Tomorrow's Labs & Rationales: none required
--- NOTE | 2017-12-15 13:36 | Discharge Summary ---
Visit Information Visit Dates Admission Date: 12/12/17 Discharge Date: 12/19/17 Hospital Course Course Attending Physician: Rizwan Hernandez MD Primary Care Physician: Leobardo MIRANDA,[place] Hospital Course: 52 year old gentleman, current smoker, with PMH significant for hypertension, hyperlipidemia, CAD with RCA stent (2012), Severe peripheral vascular disease- status post aorto bifemoral bypass with that graft 2013,pulmonary HTN, and small PE (2015) initially started on xarelto (stopped due to non compliance) , history of cardiac thrombus, left lower extremity emboli s/p embolectomy, status post cardiac arrest (2003), COPD, Alcohol use disorder brought in by EMS for public intoxication admitted to [facility] on 12/11/17 for alcohol detox. Alcohol withdrawal Admitted to the general medicine floor for alcohol withdrawal. He was placed on C1 protocol and his Ativan was tapered per CIWA scores. For the first 2-3 days of admission he remained confused and agitated and impulsive, however for the rest of his course his mental status was stable. Psychiatry and social work was consulted and they felt that he needs outpatient intensive therapy once his withdrawal has been completed. He was given options to follow-up with outpatient IOP at [facility] in [place] or [facility]. He does have transportation benefits available to him and this was explained by the social work. Acute hypoxic resp failure/ COPD exacerbation with underlying bronchitis He was started on IV azithromycin and was given IV Solu-Medrol which is later transitioned to p.o. azithromycin for a total of 5 days and a prednisone taper upon discharge. He required supplemental oxygen initially and this was later tapered off. Chest x-ray done 63 was consistent with obstructive lung disease. No focal pulmonary process. Coronary artery disease He was not on medications when he was admitted and he was started on the following medications: Aspirin, Folic acid, metoprolol, atorvastatin, lisinopril -DVT prophylaxis with subcutaneous heparin -FULL CODE Complications: none Allergies: Coded Allergies: NO KNOWN ALLERGIES (10/07/14) Disposition Summary Disposition Principal Diagnosis: Alcohol withdrawal Additional Diagnosis: Hypoxic respiratory failure Bronchitis next COPD Coronary artery disease Hypertension Discharge Disposition: home or self care Discharge Instructions General Discharge Information Code Status: Full Code Patient's Diet: Heart healthy Patient's Activity: Full Activity Follow-Up Instructions/Appts: follow up with your primary care doctor sometime next week follow-up with outpatient IOP either at [facility] in [place] or [facility]. Please take medications as directed Medications at Discharge Discharge Medications: Continue taking these medications: Aspirin (Children's Aspirin) 81 MG TAB.CHEW 1 Tablet ORAL DAILY Comments: Last Taken: Time:09:07A.M Folic Acid (Folic Acid) 1 MG TABLET 1 Tablet ORAL DAILY Qty = 90 Instructions: . Comments: Last Taken: Time:9:07A.M Thiamine HCl (B-1) 100 MG TABLET 1 Tablet ORAL DAILY Qty = 30 Instructions: . Comments: Last Taken:12/19/16 Time:9:07A.M Start taking the following new medications: LORazepam (Ativan) 1 MG TAB 1 Milligram ORAL GIVE ONCE Qty = 2 No Refills Lisinopril (Lisinopril) 10 MG TABLET 10 Milligram ORAL DAILY Qty = 30 No Refills Instructions: . Prednisone (Prednisone) 10 MG TABLET 1 Tablet ORAL See Instructions Qty = 10 No Refills Instructions: . Comments: 12/20/17-12/21/18 take 4 tabs 12/22/-12/23/17 take 3 tabs 12/24/-12/25/17 take 2 tabs 12/26/-12/27/17 take 1 tabs then stop Metoprolol Succ XL (Toprol XL) 100 MG TAB.ER.24H 100 Milligram ORAL DAILY Qty = 30 No Refills Instructions: . Atorvastatin Calcium (Atorvastatin Calcium) 40 MG TABLET 40 Milligram ORAL 5 PM Qty = 30 No Refills Instructions: . Azithromycin (Azithromycin) 500 MG TABLET 1 Tablet ORAL DAILY Qty = 4 No Refills Instructions: . The following medications have been changed: Old: Albuterol Sulfate (Proventil Hfa) 90 MCG HFA.AER.AD 2 Puff Inhale through mouth as needed for RESPIRATORY Qty = 7 New: Albuterol Sulfate (Proventil Hfa) 90 MCG HFA.AER.AD 2 Puff Inhale through mouth DAILY as needed for COPD Qty = 1 Instructions: . Comments: NOT GIVEN THIS ADMISSION Copies To: Leobardo MIRANDA,Fadumo Attending MD Review Statement Documenting Attending: Rizwan Hernandez MD Other Findings: The patient was seen and discussed with resident. OK to discharge today and complete Ativan tomorrow. Needs medical f/u with Dr. Booth in 1 week and given names of OP IOP's in [place].
[2017-12-15 14:21] VITALS: BP 108/70
[2017-12-15 22:10] VITALS: BP 140/70
[2017-12-16 06:13] VITALS: BP 142/78
--- NOTE | 2017-12-16 07:33 | PN- Housestaff ---
Erika Whiting 12/16/17 0733: Subjective Follow-up For: Alcohol withdrawal Subjective: Seen and examined patient this morning. He is continues to be confused as to where he is. He is aware of what brought him in. Continues to be impulsive and requiring a one-to-one sitter. Review of Systems Constitutional: Reports: see HPI. Objective Last 24 Hrs of Vital Signs/I&O Vital Signs Date Time Temp Pulse Resp B/P B/P Pulse O2 O2 Flow FiO2 Mean Ox Delivery Rate 12/16 1431 94 Room Air 12/16 1413 98.4 83 18 112/66 84 Room Air 12/16 1000 80 130/82 12/16 0959 95 Room Air 12/16 0904 80 130/82 12/16 0904 80 130/82 12/16 0800 90 18 142/78 12/16 0800 94 Room Air 12/16 0613 98.1 90 20 142/78 92 Room Air 12/16 0348 Room Air 06 0000 94 Room Air 12/15 2210 98.7 100 20 140/70 94 12/15 1934 95 Room Air 12/15 1600 Room Air Room Air Intake & Output 12/16 1600 12/16 0800 12/16 0000 Intake Total 750 240 480 Output Total 600 450 300 Balance 150 -210 180 Intake, IV 30 Intake, Oral 720 240 480 Number 0 Bowel Movements Output, Urine 600 450 300 Physical Exam General Appearance: No Acute Distress Cardiovascular: Regular Rate, Normal S1, Normal S2 Lungs: b/l wheezing and rhonchi noted in all lungs areas Extremities: No Edema Current Medications: Current Medications Sig/Yung Start time Last Medication Dose Route Stop Time Status Admin Acetaminophen 650 MG Q6P PRN 12/12 1315 AC PO Albuterol Sulfate 3 ML BID 12/12 2100 AC 12/16 INH 0959 Albuterol Sulfate 3 ML Q6P PRN 12/12 1415 AC INH Amoxicillin/ 875 MG Q12 12/16 1045 AC 12/16 Clavulanate Potassium PO 1226 Aspirin 81 MG DAILY 12/13 0900 AC 12/16 PO 09 Atorvastatin Calcium 40 MG 1700 / 1700 AC 12/15 PO 1811 Budesonide/ 2 PUF BID 12/12 2100 AC 12/16 Formoterol Fumarate INH 09 Folic Acid 1 MG DAILY 12/11 2200 AC 12/16 PO 0904 Gabapentin 300 MG Q8 12/11 2200 AC 12/16 PO 1318 Guaifenesin 600 MG Q12 12/14 0900 AC 12/16 PO 0904 Heparin Sodium 5,000 UNIT Q8 12/12 1400 AC 12/16 (Porcine) SC 1318 Lisinopril 10 MG DAILY 12/13 0900 AC 12/16 PO 0904 Lorazepam 1 MG Q6 12/14 1200 AC 12/16 PO 1226 Lorazepam 2 MG Q2P PRN 12/12 1145 AC IV Lorazepam 1 MG Q2P PRN 12/12 1145 AC 12/16 IV 1010 Magnesium Oxide 400 MG DAILY 12/14 1013 AC 12/16 PO 0904 Metoprolol Succinate 100 MG DAILY 12/12 1813 AC 12/16 PO 0904 Multivitamins 1 TAB DAILY 12/11 2200 AC 12/16 PO 0904 Ondansetron HCl 4 MG Q8P PRN 12/12 1315 AC IV Senna/Docusate Sodium 2 TAB DAILY PRN 12/16 0800 AC 12/16 PO 0928 Thiamine HCl 100 MG DAILY 12/11 2145 AC 12/16 PO 0904 Tiotropium [place] 1 PUF DAILY 12/12 1813 AC 12/16 INH 0905 Assessment/Plan Assessment: 52 year old gentleman, current smoker, with PMH significant for hypertension, hyperlipidemia, CAD with RCA stent (2012), Severe peripheral vascular disease- status post aorto bifemoral bypass with that graft 2013,pulmonary HTN, and small PE (2015) initially started on xarelto (stopped due to non compliance) , history of cardiac thrombus, left lower extremity emboli s/p embolectomy, status post cardiac arrest (2003), COPD, Alcohol use disorder brought in by EMS for public intoxication admitted for alcohol detox. Continues to be confused this morning. Problem List -Altered mental status- slowly improving -EtOH intoxication with withdrawal -Hypertension -Hyperlipidemia -CAD s/p ALEKSANDRA to RCA x2 -PVD s/p Aorto-femoral bypass -Massive PE (2005) Plan Alcohol withdrawal Continues to be in acute delirium On CCU and standing Ativan CIWA 10, 11 Continues to require one-to-one sitter Psychiatry consult placed COPD Increase nebulization to every 4 We will repeat chest x-ray today Given clinical findings of diffuse rhonchi wheezing will start him on p.o. Augmentin -Continue gabapentin -Continue home meds: Aspirin, Folic acid, metoprolol, atorvastatin, lisinopril -Consult with Social work -Pain control with acetaminophen -Regular Diet -DVT prophylaxis with subcutaneous heparin -FULL CODE Problem List: 1. S/P aorto-bifemoral bypass surgery 2. Bronchitis Pain Ratin Pain Location: na Pain Goal: Pain 4 or less Pain Plan: current regimen Tomorrow's Labs & Rationales: none required Rizwan Hernandez MD 12/16/17 1542: Attending MD Review Statement Attending Statement Attending MD Statement: examined this patient, discuss w/resident/PA/PACKAGE DYE STAND LOADER, agreed w/resident/PA/PACKAGE DYE STAND LOADER, reviewed EMR data (avail), discussed with nursing, discussed with case mgmt, amended to note Attending Assessment/Plan: The patient was seen and discussed with house staff, nursing and case management. Still with CIWA scores 6-11. Having persistent chest congestion w/o fever or hypoxemia. Diffuse rhonchi and mild wheeze on exam. Will continue aerosol & inhalers, repeat CXR, Mucinex. Add Augmentin for possible bronchitis pending CXR. Consider po Prednisone/steroids if not improving. Social service aware of patient. Psychiatry to see (previously on Celexa in past).
[2017-12-16 08:00] VITALS: BP 142/78
[2017-12-16 10:00] VITALS: BP 130/82
[2017-12-16 14:13] VITALS: BP 112/66
--- NOTE | 2017-12-16 15:27 | Cons- Psychiatry ---
Psychiatric Consult Date of Consult: 12/16/17 Reason for Consult: delirium r/o depression Allergies: Coded Allergies: NO KNOWN ALLERGIES (10/07/14) Past History Past Medical History Neurological: NONE EENT: NONE Cardiovascular: CAD, hypertension, hyperlipidemia (PVD), myocardial infarction, STENT Respiratory: asthma, COPD Gastrointestinal: NONE Hepatic: NONE Renal: NONE Musculoskeletal: NONE Psychiatric: alcohol dependence Endocrine: NONE Blood Disorders: NONE Cancer(s): NONE ROUTING CLERK/Reproductive: NONE Past Surgical History Surgical History: 1 Psychiatric Treatment History Risk Factors: chronic/serious med cond., SA/MH hospitalized, substance abuse, poor impulse control, male, limited support Assessment/Plan Impression: Pt is a 52 y/o M with CAD, HTN, HPL, massive PE (2005), PVD s/p Aorto-femoral bypass, and lifelong etoh use d/o who was BIBA for public intoxication. He has been persistently confused this admission. Hospital course: Vital Signs Date Time Temp Pulse Resp B/P B/P Pulse O2 O2 Flow FiO2 Mean Ox Delivery Rate 12/16 1431 94 Room Air 12/16 1413 98.4 83 18 112/66 84 Room Air / 1000 80 130/82 / 0959 95 Room Air / 0904 80 130/82 06/ 0904 80 130/82 / 0800 90 18 142/78 06/ 0800 94 Room Air / 0613 98.1 90 20 142/78 92 Room Air / 0348 Room Air / 0000 94 Room Air 12/15 2210 98.7 100 20 140/70 94 / 1934 95 Room Air 12/15 1600 Room Air Room Air CIWA: 12/16/17 9,0,11,6,10,6,11,6,6,4 PPHx: Pt has been inpatient for detox here and other facilities most recently at [facility]. Denies ICU. Denies suicide attempts SH: Lives with and daughter, Marga. 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 NKDA Home Med list Albuterol Sulfate (Proventil Hfa) 90 MCG HFA.AER.AD 2 PUF INH PRN RESPIRATORY (Reported) Aspirin (Children's Aspirin) 81 MG TAB.CHEW 1 TAB PO DAILY HEART/BLOOD ( Reported) Folic Acid 1 MG TABLET 1 TAB PO DAILY SUPPLEMENT (Reported) Thiamine HCl (B-1) 100 MG TABLET 1 TAB PO DAILY SUPPLEMENT (Reported) Current Medications Sig/Yung Start time Last Medication Dose Route Stop Time Status Admin Acetaminophen 650 MG Q6P PRN 12/12 1315 AC PO Albuterol Sulfate 3 ML BID 12/12 2100 AC 12/16 INH 0959 Albuterol Sulfate 3 ML Q6P PRN 12/12 1415 AC INH Amoxicillin/ 875 MG Q12 12/16 1045 AC 12/16 Clavulanate Potassium PO 1226 Aspirin 81 MG DAILY 12/13 0900 AC 12/16 PO 0905 Atorvastatin Calcium 40 MG 1700 12/13 1700 AC 12/15 PO 1811 Budesonide/ 2 PUF BID 12/12 2100 AC 12/16 Formoterol Fumarate INH 0905 Folic Acid 1 MG DAILY 12/11 2200 AC 12/16 PO 0904 Gabapentin 300 MG Q8 12/11 2200 AC 12/16 PO 1318 Guaifenesin 600 MG Q12 12/14 0900 AC 12/16 PO 0904 Heparin Sodium 5,000 UNIT Q8 12/12 1400 AC 12/16 (Porcine) SC 1318 Lisinopril 10 MG DAILY 12/13 0900 AC 12/16 PO 0904 Lorazepam 1 MG Q6 12/14 1200 AC 12/16 PO 1226 Lorazepam 2 MG Q2P PRN 12/12 1145 AC IV Lorazepam 1 MG Q2P PRN 12/12 1145 AC 12/16 IV 1010 Magnesium Oxide 400 MG DAILY 12/14 1013 AC 12/16 PO 0904 Metoprolol Succinate 100 MG DAILY 12/12 1813 AC 12/16 PO 0904 Multivitamins 1 TAB DAILY 12/11 2200 AC 12/16 PO 0904 Ondansetron HCl 4 MG Q8P PRN 12/12 1315 AC IV Senna/Docusate Sodium 2 TAB DAILY PRN 12/16 0800 AC 12/16 PO 0928 Thiamine HCl 100 MG DAILY 12/11 2145 AC 12/16 PO 0904 Tiotropium [place] 1 PUF DAILY 12/12 1813 AC 12/16 INH 0905 On exam, pt is in bed in gown wynn skin with sitter in NAD. He is oriented to [facility], states year is "1886, 1986, I mean you know what I got" Speech is sometimes clear sometimes encephalopathic mumbling. He is mildly tremulous. States his mood has been fine. He felt happy before he came in. Now he feels sad. My mother from alcohol when she was 53. Then switches subjects to something non-sensical. Thought process is disorganized. There are no delusions or SI. Attention and ST memory impaired. Insight/J poor A/ 52 y/o MMW with hx dep anx, chronic etoh dep here after being picked up by police for public intoxification. He denies recent depressive symptoms. Exam is limited by encephalopathy. -He is still delirious. On past admits for detox he was noted by Dr. Keating to have significant cognitive impairment during detox process, even years ago. He should not leave AMA until his mentation clears and he is reassessed. -Would put his thiamine to 100 mg TID -Hard to assess his mood given his confusion. Also, it is somewhat complicated to start treatment given his chronic alcoholism. When his sensorium clears would have SW consult for substance use, possible follow up with IOP in dual diagnosis. If he pursues sober lifestyle we can treat him for mood disorder. Otherwise, he can follow up with outpatient psychiatry. He will need to show motivation for sobriety and desire to treat any underlying mood disorder he may have in the context of ongoing treatment and supervision by psych. Please page with any questions. Fay #100
--- NOTE | 2017-12-16 15:57 | RADIOLOGY REPORT ---
EXAMINATION: XR CHEST CLINICAL INFORMATION: Shortness of breath, wheezing. Presumptive diagnosis of pneumonia. COMPARISON: Chest x-ray dated 12/12/2017. TECHNIQUE: 2 views of the chest were obtained. FINDINGS: The cardiomediastinal silhouette is within normal limits in size. Calcification of the aortic arch is seen. Again seen are changes consistent with obstructive lung disease. No focal consolidation, effusion or pneumothorax is seen. Bony structures are unremarkable. IMPRESSION: Findings are consistent with obstructive lung disease. No focal pulmonary process.
[2017-12-16 21:48] VITALS: BP 130/78
[2017-12-17 06:18] VITALS: BP 126/78
--- NOTE | 2017-12-17 08:47 | PN- Housestaff ---
Erika Whiting 12/17/17 0847: Subjective Follow-up For: Alcohol withdrawal Subjective: Seen and examined patient, more awake and alert today. Overnight he had worsening shortness of breath and was placed on supplemental oxygen. Denies fever, chills sputum production. Review of Systems Constitutional: Reports: see HPI. Objective Last 24 Hrs of Vital Signs/I&O Vital Signs Date Time Temp Pulse Resp B/P B/P Pulse O2 O2 Flow FiO2 Mean Ox Delivery Rate 12/17 0815 118/74 12/17 0800 92 Nasal 2.0L Cannula 12/17 0618 97.9 79 20 126/78 91 Nasal Cannula 12/17 0608 91 Nasal 2.0L Cannula 12/16 2148 98.5 84 19 130/78 92 Room Air 12/16 1850 92 Room Air 12/16 1431 94 Room Air 12/16 1413 98.4 83 18 112/66 84 Room Air 12/16 1000 80 130/82 12/16 0959 95 Room Air Intake & Output 12/17 1600 12/17 0800 12/17 0000 Intake Total 260 260 Output Total 300 300 Balance -40 -40 Intake, IV 20 20 Intake, Oral 240 240 Number 1 Bowel Movements Output, Urine 300 300 Physical Exam General Appearance: Alert, Oriented X3, Cooperative, No Acute Distress Cardiovascular: Regular Rate, Normal S1, Normal S2 Lungs: b/l ronchi and diffuse expiratory wheezing Current Medications: Current Medications Sig/Yung Start time Last Medication Dose Route Stop Time Status Admin Acetaminophen 650 MG Q6P PRN 12/12 1315 AC PO Albuterol Sulfate 3 ML BID 12/12 2100 AC 12/16 INH 1850 Albuterol Sulfate 3 ML Q6P PRN 12/12 1415 AC INH Amoxicillin/ 875 MG Q12 12/16 1045 DC 12/16 Clavulanate Potassium PO 2121 Aspirin 81 MG DAILY 12/13 0900 AC 12/17 PO 0814 Atorvastatin Calcium 40 MG 1700 12/13 1700 AC 12/16 PO 1708 Azithromycin 500 MG DAILY 12/17 0800 AC Sodium Chloride 250 ML IV Budesonide/ 2 PUF BID 12/12 2100 AC 12/17 Formoterol Fumarate INH 0813 Folic Acid 1 MG DAILY 12/11 2200 AC 12/17 PO 0814 Gabapentin 300 MG Q8 12/11 2200 AC 06/13 PO 0546 Guaifenesin 600 MG Q12 12/14 0900 AC 12/17 PO 0814 Heparin Sodium 5,000 UNIT Q8 12/12 1400 AC 12/17 (Porcine) SC 0546 Lisinopril 10 MG DAILY 12/13 0900 AC 12/17 PO 0815 Lorazepam 1 MG TID 12/17 1400 UNVr PO Lorazepam 1 MG Q6 12/14 1200 AC 12/17 PO 0546 Lorazepam 2 MG Q2P PRN 12/12 1145 AC IV Lorazepam 1 MG Q2P PRN 12/12 1145 AC 12/16 IV 1010 Magnesium Oxide 400 MG DAILY 12/14 1013 AC 12/17 PO 0814 Methylprednisolone 40 MG DAILY 12/17 0800 AC IV Metoprolol Succinate 100 MG DAILY 12/12 1813 AC 12/17 PO 0815 Multivitamins 1 TAB DAILY 12/11 2200 AC 12/17 PO 0815 Ondansetron HCl 4 MG Q8P PRN 12/12 1315 AC IV Patient Medication 1 ED ONE ONE 12/16 1615 DC 12/16 Teaching ED 12/16 1616 1709 Prednisone 40 MG ONCE ONE 12/16 2045 DC 12/16 PO 12/16 2046 2134 Senna/Docusate Sodium 2 TAB DAILY PRN 12/16 0800 AC 12/16 PO 0928 Thiamine HCl 100 MG TID 12/17 0900 AC 12/17 PO 0815 Thiamine HCl 100 MG DAILY 07 2145 DC 12/16 PO 0904 Tiotropium [place] 1 PUF DAILY 12/12 1813 AC 12/17 INH 0812 Assessment/Plan Assessment: 52 year old gentleman, current smoker, with PMH significant for hypertension, hyperlipidemia, CAD with RCA stent (2012), Severe peripheral vascular disease- status post aorto bifemoral bypass with that graft 2013,pulmonary HTN, and small PE (2015) initially started on xarelto (stopped due to non compliance) , history of cardiac thrombus, left lower extremity emboli s/p embolectomy, status post cardiac arrest (2003), COPD, Alcohol use disorder brought in by EMS for public intoxication admitted for alcohol detox. Continues to be confused this morning. Problem List -Altered mental status- slowly improving -EtOH intoxication with withdrawal -Hypertension -Hyperlipidemia -CAD s/p ALEKSANDRA to RCA x2 -PVD s/p Aorto-femoral bypass -Massive PE (2005) Plan Alcohol withdrawal improving mental status CIWA 4-6, will taper ativan to 1mg TID with IV prn Continue one-to-one sitter for now Acute hypoxic resp failure/ COPD exacerbation with underlying bronchitis Increase nebulization to every 4hr will start IV azithro/IV solumedrol IV 40mg repeat chest x-ray 63 consistent with obstructive lung disease. No focal pulmonary process. -Continue gabapentin -Continue home meds: Aspirin, Folic acid, metoprolol, atorvastatin, lisinopril -Consult with Social work -Pain control with acetaminophen -Regular Diet -DVT prophylaxis with subcutaneous heparin -FULL CODE Problem List: 1. Bronchitis 2. Alcohol intoxication Pain Ratin Pain Location: na Pain Goal: Pain 4 or less Pain Plan: current regimen Tomorrow's Labs & Rationales: none required Rizwan Hernandez MD 12/17/17 0940: Attending MD Review Statement Attending Statement Attending MD Statement: examined this patient, discuss w/resident/PA/FLOATLIGHT POWDER MIXER, agreed w/resident/PA/FLOATLIGHT POWDER MIXER, reviewed EMR data (avail), discussed with nursing, reviewed images, amended to note Attending Assessment/Plan: The patient was seen and discussed with house staff & nursing. Still with significant wheeze/rhonchi and now acute hypoxic respiratory failure c/w acute COPD exacerbation/bronchitis. CXR yesterday negative. Was given po Prednisone last pm. Agree with change Abx to Zithromax, increase aerosol to qid, and agree with Solumedrol. Follow pulse ox. Continue slow taper of Ativan for detox. Still with some delirium.
[2017-12-17 10:00] VITALS: BP 118/77
[2017-12-17 14:01] VITALS: BP 118/72
[2017-12-17 21:50] VITALS: BP 98/52
[2017-12-17 22:00] VITALS: BP 98/52
[2017-12-18] VITALS (9 sets, daily range): BP systolic 98–122; BP diastolic 52–72
--- NOTE | 2017-12-18 07:15 | PN- Housestaff ---
DerrelllonErika 12/18/17 0714: Subjective Follow-up For: Alcohol withdrawal COPD exacerbation 2/2 to bronchitis Subjective: Seen and examined patient, complains of midsternal chest, which is sharp and this morning is 8/10, Aggravated by inspiration and coughing. States his breathing is only stlightly improved. Denies fever, chills, bowel or bladder symptoms. Review of Systems Constitutional: Reports: see HPI. Objective Last 24 Hrs of Vital Signs/I&O Vital Signs Date Time Temp Pulse Resp B/P B/P Pulse O2 O2 Flow FiO2 Mean Ox Delivery Rate 12/18 0811 98.1 71 20 116/62 93 Nasal 2.0L Cannula 12/18 0415 97.8 71 20 106/72 95 Nasal 2.0L Cannula 12/18 0200 97.7 80 20 98/52 12/18 0000 97.7 80 20 98/52 12/18 0000 92 Nasal 2.0L Cannula 12/17 2200 98/52 12/17 2150 97.7 80 20 98/52 92 Nasal 2.0L Cannula 12/17 1941 93 Room Air Room Air 12/17 1600 Nasal 2.0L Cannula 12/17 1401 98.1 85 20 118/72 91 Room Air 12/17 1035 93 Nasal 2.0L Cannula 12/17 0815 118/74 Intake & Output 12/18 1600 12/18 0800 12/18 0000 Intake Total 150 720 Output Total 480 Balance 150 240 Intake, Oral 150 720 Number 0 Bowel Movements Output, Urine 480 Physical Exam General Appearance: Alert, Oriented X3, Cooperative, No Acute Distress Cardiovascular: Regular Rate, Normal S1, Normal S2 Lungs: b/l course rhonchi and wheezing Extremities: No Edema Current Medications: Current Medications Sig/Yung Start time Last Medication Dose Route Stop Time Status Admin Acetaminophen 650 MG Q6P PRN 12/12 1315 AC PO Albuterol Sulfate 3 ML BID 12/12 2100 AC 12/17 INH 1939 Albuterol Sulfate 3 ML Q6P PRN 12/12 1415 AC INH Aspirin 81 MG DAILY 12/13 0900 AC 12/17 PO 0814 Atorvastatin Calcium 40 MG 1700 12/13 1700 AC 12/17 PO 1707 Azithromycin 500 MG Q24H 12/18 1000 AC Sodium Chloride 250 ML IV Azithromycin 500 MG DAILY 12/17 0800 DC 12/17 Sodium Chloride 250 ML IV 1004 Budesonide/ 2 PUF BID 12/12 2100 AC 12/17 Formoterol Fumarate INH 2046 Folic Acid 1 MG DAILY 12/11 2200 AC 12/17 PO 0814 Gabapentin 300 MG Q8 12/11 2200 AC 12/18 PO 0519 Guaifenesin 600 MG Q12 12/14 0900 AC 12/17 PO 2046 Heparin Sodium 5,000 UNIT Q8 12/12 1400 AC 12/18 (Porcine) SC 0519 Lisinopril 10 MG DAILY 12/13 0900 AC 12/17 PO 0815 Lorazepam 1.5 MG BID 12/18 0900 AC PO Lorazepam 1 MG TID 12/17 1400 AC 12/17 PO 2046 Lorazepam 1 MG Q6 12/14 1200 DC 12/17 PO 0546 Lorazepam 2 MG Q2P PRN 12/12 1145 AC IV Lorazepam 1 MG Q2P PRN 12/12 1145 AC 12/16 IV 1010 Magnesium Oxide 400 MG DAILY 12/14 1013 AC 12/17 PO 0814 Methylprednisolone 40 MG BID 12/18 0900 AC IV Methylprednisolone 40 MG DAILY 12/17 0800 DC 12/17 IV 1004 Metoprolol Succinate 100 MG DAILY 12/12 1813 AC 12/17 PO 0815 Multivitamins 1 TAB DAILY 12/11 2200 AC 12/17 PO 0815 Ondansetron HCl 4 MG Q8P PRN 12/12 1315 AC IV Senna/Docusate Sodium 2 TAB DAILY PRN 12/16 0800 AC 12/16 PO 0928 Thiamine HCl 100 MG TID 12/17 0900 AC 12/17 PO 2046 Tiotropium [place] 1 PUF DAILY 12/12 1813 AC 12/17 INH 0812 Assessment/Plan Assessment: 52 year old gentleman, current smoker, with PMH significant for hypertension, hyperlipidemia, CAD with RCA stent (2012), Severe peripheral vascular disease- status post aorto bifemoral bypass with that graft 2013,pulmonary HTN, and small PE (2015) initially started on xarelto (stopped due to non compliance) , history of cardiac thrombus, left lower extremity emboli s/p embolectomy, status post cardiac arrest (2003), COPD, Alcohol use disorder brought in by EMS for public intoxication admitted for alcohol detox. Mental status improved today , however continues to have respiratory symptoms. Problem List -Altered mental status- improving -EtOH withdrawal -Hypertension -Hyperlipidemia -CAD s/p ALEKSANDRA to RCA x2 -PVD s/p Aorto-femoral bypass -Massive PE (2005) Plan Alcohol withdrawal improving mental status CIWA 4-6, will taper ativan to 1.5 mg BID with IV prn Continue one-to-one sitter for now Acute hypoxic resp failure/ COPD exacerbation with underlying bronchitis Increase nebulization to every 4hr continue IV azithro and will increase IV solumedrol IV 40mg BID repeat chest x-ray 63 consistent with obstructive lung disease. No focal pulmonary process. will repeat labs this am Pleuritic chest pain ? pleurisy vs 2/2 trauma vs pericarditis given his extensive cardiac history, will obtain EKG and trop to r/o cardiac etiology of his chest pain. will start Motrin 600mg q6prn -Continue gabapentin -Continue home meds: Aspirin, Folic acid, metoprolol, atorvastatin, lisinopril -Consult with Social work -Pain control with acetaminophen -Heart healthy Diet -DVT prophylaxis with subcutaneous heparin -FULL CODE Problem List: 1. Chest pain 2. Alcohol withdrawal 3. Bronchitis Pain Ratin Pain Location: midsternal Pain Goal: Pain 4 or less Pain Plan: motrin 600 q6 Tomorrow's Labs & Rationales: none required Rizwan Hernandez MD 12/18/17 1325: Attending MD Review Statement Attending Statement Attending MD Statement: examined this patient, discuss w/resident/PA/MOLDED GOODS CONTROLS OPERATOR, agreed w/resident/PA/MOLDED GOODS CONTROLS OPERATOR, reviewed EMR data (avail), discussed with nursing, discussed with case mgmt, amended to note Attending Assessment/Plan: The patient was seen and discussed with house staff. CIWA scores are now lower 2 -3 and more alert. Still with congestion and wheeze and requiring oxygen. Agree with increase Solumedrol to bid and increase aerosol to qid. Incentive spiromatry. Will attempt to taper oxygen. outpatient services director to see today to discuss discharge disposition.
[2017-12-18 09:18] LABS: ABSOLUTE EOSINOPHIL COUNT 0.1 /CUMM (0.0-0.7); EOSINOPHIL % 0.5 % (0-5); RBC DISTRIBUTION WIDTH 13.6 % (11.5-14.5)
[2017-12-18 09:25] LABS: ABSOLUTE BASOPHIL COUNT 0 /CUMM (0.0-0.2); ABSOLUTE GRANULOCYTE CT 10.1 /CUMM (1.4-6.5); ABSOLUTE LYMPH COUNT 1.8 /CUMM (1.2-3.4); ABSOLUTE MONOCYTE COUNT 1.4 /CUMM (0.10-0.60); BASOPHIL % 0.3 % (0.0-2.0); GRANULOCYTE % 75.8 % (42.2-75.2); HEMATOCRIT 40.6 % (42-52); MEAN CORPUSCULAR HGB 33.7 PG (27.0-31.0); MEAN CORPUSCULAR HGB CONC 34.9 G/DL (33.0-37.0); MEAN CORPUSCULAR VOLUME 96.5 FL (80.0-94.0); RED BLOOD CELL CT 4.21 /CUMM (4.70-6.10)
[2017-12-18 09:30] LABS: PLATELET COUNT 313 /CUMM (130-400); WHITE BLOOD CELL COUNT 13.4 /CUMM (4.8-10.8)
[2017-12-19 06:48] VITALS: BP 120/74
--- NOTE | 2017-12-19 08:00 | PN- Housestaff ---
Subjective Follow-up For: Alcohol withdrawal COPD exacerbation 2/2 to bronchitis Complaints: no complaints Subjective: Seen and examined patient. Offers no complaints. Says that his breathing has improved remarkably. Feels well and ready to be discharged today. Extensive counseling done with him today regarding the importance of follow-up with IOP and abstaining from alcohol. Review of Systems Constitutional: Denies: see HPI. Objective Last 24 Hrs of Vital Signs/I&O Vital Signs Date Time Temp Pulse Resp B/P B/P Pulse O2 O2 Flow FiO2 Mean Ox Delivery Rate 12/19 0832 86 110/68 12/19 0831 86 110/68 12/19 0809 97 Room Air Room Air 12/19 0648 97.5 75 14 120/74 95 Nasal 1.0L Cannula 12/19 0000 95 Nasal 1.0L Cannula 12/18 2159 98.0 74 12 106/56 95 Nasal 1.0L Cannula 12/18 1953 97.8 74 12 110/66 93 Nasal 1.0L Cannula 12/18 1740 96 Nasal 2.0L Cannula 12/18 1600 93 Nasal 1.0L Cannula Intake & Output 12/19 1600 12/19 0800 12/19 0000 Intake Total 120 0 Output Total 200 Balance -80 0 Intake, IV 0 Intake, Oral 120 Number 0 0 Bowel Movements Output, Urine 200 Physical Exam General Appearance: Alert, Oriented X3, Cooperative, No Acute Distress Cardiovascular: Normal S1, Normal S2 Lungs: Normal Air Movement, scattered wheezing Extremities: No Edema Current Medications: Current Medications Sig/Yung Start time Last Medication Dose Route Stop Time Status Admin Acetaminophen 650 MG Q6P PRN 12/12 1315 DCD PO Albuterol Sulfate 3 ML EVERY 4 HRS/AWAKE 12/18 1600 DCD 12/19 INH 1159 Albuterol Sulfate 3 ML Q6P PRN 12/12 1415 DCD INH Aspirin 81 MG DAILY 12/13 0900 DCD 12/19 PO 0833 Atorvastatin Calcium 40 MG 1700 12/13 1700 DCD 12/18 PO 1816 Azithromycin 500 MG ONCE ONE 12/19 1300 DC 12/19 PO 12/19 1301 1301 Azithromycin 500 MG Q24H 12/18 1000 DCD 12/18 Sodium Chloride 250 ML IV 0914 Budesonide/ 2 PUF BID 12/12 2100 DCD 12/19 Formoterol Fumarate INH 0832 Folic Acid 1 MG DAILY 12/11 2200 DCD 12/19 PO 0832 Gabapentin 300 MG Q8 12/11 2200 DCD 12/19 PO 0510 Guaifenesin 600 MG Q12 12/14 0900 DCD 12/19 PO 0833 Heparin Sodium 5,000 UNIT Q8 12/12 1400 DCD 12/19 (Porcine) SC 0510 Ibuprofen 600 MG Q6P PRN 12/18 0830 DCD 12/18 PO 1421 Lisinopril 10 MG DAILY 12/13 09 DCD 12/19 PO 0832 Lorazepam 1 MG BID 12/19 0900 DCD 12/19 PO 0830 Lorazepam 1.5 MG BID 12/18 0900 DC 12/18 PO 2208 Lorazepam 2 MG Q2P PRN 12/12 1145 DC IV Lorazepam 1 MG Q2P PRN 12/12 1145 DC 12/16 IV 1010 Magnesium Oxide 400 MG DAILY 12/14 1013 DCD 12/19 PO 0832 Methylprednisolone 40 MG BID 12/18 0900 DC 12/19 IV 0832 Metoprolol Succinate 100 MG DAILY 12/12 1813 DCD 12/19 PO 0831 Multivitamins 1 TAB DAILY 12/11 2200 DCD 12/19 PO 1251 Ondansetron HCl 4 MG Q8P PRN 12/12 1315 DCD IV Senna/Docusate Sodium 2 TAB DAILY PRN 12/16 0800 DCD 12/16 PO 0928 Thiamine HCl 100 MG TID 12/17 0900 DCD 12/19 PO 0830 Tiotropium [place] 1 PUF DAILY 12/12 1813 DCD 12/19 INH 0832 Assessment/Plan Assessment: 52 year old gentleman, current smoker, with PMH significant for hypertension, hyperlipidemia, CAD with RCA stent (2012), Severe peripheral vascular disease- status post aorto bifemoral bypass with that graft 2013,pulmonary HTN, and small PE (2015) initially started on xarelto (stopped due to non compliance) , history of cardiac thrombus, left lower extremity emboli s/p embolectomy, status post cardiac arrest (2003), COPD, Alcohol use disorder brought in by EMS for public intoxication admitted for alcohol detox. Low CIWA scores, respiration improved. Problem List -Altered mental status- improved -EtOH withdrawal -Hypertension -Hyperlipidemia -CAD s/p ALEKSANDRA to RCA x2 -PVD s/p Aorto-femoral bypass -Massive PE (2005) Plan Alcohol withdrawal improving mental status CIWA 4-6, will taper ativan to 1 BID, will be discharge on 1mg ativan BID to complete taper rachel. Acute hypoxic resp failure/ COPD exacerbation with underlying bronchitis nebulization to every 4hr continue IV azithro and will increase IV solumedrol IV 40mg BID, will be discharged on p.o. azithromycin to complete a 5 day course with prednisone taper repeat chest x-ray 63 consistent with obstructive lung disease. No focal pulmonary process. will repeat labs this am Pleuritic chest pain No acute changes on EKG with neg troponin will start Motrin 600mg q6prn -Continue gabapentin -Continue meds: Aspirin, Folic acid, metoprolol, atorvastatin, lisinopril -Consult with Social work -Pain control with acetaminophen -Heart healthy Diet -DVT prophylaxis with subcutaneous heparin -FULL CODE stable for discharge with IOP Problem List: 1. Alcohol withdrawal 2. Hypertension Pain Ratin Pain Location: na Pain Goal: Pain 4 or less Pain Plan: Current regimen Tomorrow's Labs & Rationales: None required
[2017-12-19 08:32] VITALS: BP 110/68
[2017-12-19] MEDS ORDERED: TOPROL XL100 M1 PO ×2 (09:01→10:47)
[2017-12-19] MEDS ORDERED: ATORVASTATIN CA40 M1 PO ×2 (09:01→10:47)
[2017-12-19] MEDS ORDERED: LISINOPRIL10 M1 PO ×2 (09:01→10:47)
--- NOTE | 2017-12-19 09:05 | Patient Discharge Instructions ---
Discharge Instructions General Discharge Information You were seen/treated for: Alcohol withdrawal Special Instructions: please up with your primary care doctor sometime next week Please follow-up with outpatient IOP either at [facility] in [place] or [facility]. You have transportation benefits available to you. Please take medications as directed Diet Continue normal diet: Yes Acute Coronary Syndrome Inclusion Criteria At DC or during hospital stay patient has or had the following: ACS DIAGNOSIS No Discharge Core Measures Meds if any: Prescribed or Continued at Discharge Meds if any: NOT Prescribed or Continued at Discharge Congestive Heart Failure Inclusion Criteria At DC or during hospital stay patient has or had the following: CHF DIAGNOSIS No Discharge Core Measures Meds if any: Prescribed or Continued at Discharge Meds if any: NOT Prescribed or Continued at Discharge Cerebrovascular accident Inclusion Criteria At DC or during hospital stay patient has or had the following: CVA/TIA Diagnosis No Discharge Core Measures Meds if any: Prescribed or Continued at Discharge Meds if any: NOT Prescribed or Continued at Discharge Venous thromboembolism Inclusion Criteria VTE Diagnosis No VTE Type NONE VTE Confirmed by (Test) NONE Discharge Core Measures - Per Current guidelines, there needs to be overlap - treatment for the first 5 days of Warfarin therapy. - If discharged on Warfarin prior to 5 days of - overlap therapy, the patient will need to be - assessed for post discharge needs including - *Post discharge parental anticoagulation - *Warfarin and/or parental anticoagulation education - *Follow up date to check INR post discharge At least 5 days overlap therapy as Inpatient No Meds if any: Prescribed or Continued at Discharge Note: Overlap Therapy is Warfarin and Anticoagulant Meds if any: NOT Prescribed or Continued at Discharge
[2017-12-19] MEDS ORDERED: AZITHROMYCIN500 M3 PO ×2 (09:12→10:47)
[2017-12-19] MEDS ORDERED: PREDNISONE10 M2 PO ×2 (09:23→10:47)
[2017-12-19] MEDS ORDERED: ATIVAN1 M1 PO ×2 (09:30→10:47)
[2017-12-19] MEDS ORDERED: PROVENTIL HFA6.7 GM INH (10:47)
== END 2017-12-19 13:15 | DRG 775 ==
LOC: ERH 13:21 → ERHI 21:30 → 2NB 12-12 11:42 → EDBEDREQ 12-12 12:53 → EDBEDREQDT 12-12 12:53 → EDBEDREQTM 12-12 12:53 → ERHI 12-12 13:19 → ENRESERV 12-12 13:55 → ENTRNSPT 12-12 14:16 → EDTRNSPT 12-12 14:22 → EDTRNSPTSTS 12-12 15:07 → 2NB 12-12 15:20 → CMPTRNSPT 12-12 16:25 → 2NB 12-15 08:39
PROVIDERS: Emergency Medicine; Internal Medicine; Internal Medicine Interventional Cardiology
DX: F10.239 Alcohol dependence with withdrawal, unspecified (principal); I27.20 Pulmonary hypertension, unspecified; J44.1 Chronic obstructive pulmonary disease with (acute) exacerbation; J44.0 Chronic obstructive pulmonary disease with (acute) lower respiratory infection; I25.10 Atherosclerotic heart disease of native coronary artery without angina pectoris; R09.02 Hypoxemia; E87.1 Hypo-osmolality and hyponatremia; J20.9 Acute bronchitis, unspecified; I10 Essential (primary) hypertension; I73.9 Peripheral vascular disease, unspecified; F17.200 Nicotine dependence, unspecified, uncomplicated; I25.2 Old myocardial infarction; Y90.8 Blood alcohol level of 240 mg/100 ml or more; E78.5 Hyperlipidemia, unspecified; Z95.5 Presence of coronary angioplasty implant and graft; Z86.711 Personal history of pulmonary embolism
CPT/HCPCS: 2NBSP; 36592; 71046; 80307; 81001; 82436; 93005; 93010; G0480; J0456; J1644; J2405; J2920; J3490; J7040; J7508

== ENCOUNTER 2018-01-21 16:55 | Inpatient (IN) | payer OTHER ==
[~2018-01-21] VITALS: Ht 185.4 cm; Wt 81.0 kg
[~2018-01-21 16:55] MED LIST changes: +ATORVASTATIN CA40 M1 PO; +AZITHROMYCIN500 M3 PO; +PREDNISONE10 M2 PO; +TOPROL XL100 M1 PO
--- NOTE | 2018-01-21 17:18 | CT SCAN REPORT ---
EXAMINATION: CT HEAD WITHOUT CONTRAST CLINICAL INFORMATION: Right-sided hemiparesis. COMPARISON: CT head 12/11/2016. MRI of head 12/12/2016 TECHNIQUE: Contiguous axial imaging was performed from the skull base to vertex without intravenous administration of contrast. DLP: 619.8 mGy-cm FINDINGS: There is low attenuation of the left basal ganglia, including the caudate and the putamen. This is consistent with a subacute infarct. This is new since exam of 12/11/2016. There is no intracranial hemorrhage. There is no significant mass effect. No extra-axial fluid collections are identified. There is atrophy with prominence of the ventricles and the sulci and hypodensity of the periventricular white matter due to chronic small vessel ischemic disease. There is vascular calcifications of the internal carotid arteries bilaterally. The osseous structures and soft tissues are normal. There is a small retention cyst in the left sphenoid sinus. IMPRESSION: Low attenuation of the left basal ganglia consistent with a subacute infarct. No evidence for hemorrhage. This critical result was discussed with Dr. Vela on 01/21/2018, 5:11 PM and it was ascertained that the content and urgency of the report was understood at the time of direct communication.
--- NOTE | 2018-01-21 17:21 | ED NEURO DEFICIT/STROKE ---
History of Present Illness General Chief Complaint: Neuro Symptoms/ Deficit Stated Complaint: ?STROKE Source: patient, family Exam Limitations: unable to give history Vital Signs & Intake/Output Vital Signs & Intake/Output Vital Signs Date Time Temp Pulse Resp B/P B/P Pulse O2 O2 Flow FiO2 Mean Ox Delivery Rate 01/21 1838 58 18 160/83 97 Room Air Room Air 01/21 1823 62 18 150/64 96 Room Air Room Air 01/21 1808 63 18 154/80 96 Room Air Room Air 01/21 1756 65 18 169/82 98 Room Air Room Air 01/21 1753 60 18 169/82 100 Room Air Room Air 01/21 1747 98 Room Air Room Air 01/21 1725 67 20 146/85 98 Room Air Room Air 01/21 1659 98.5 84 24 128/74 98 Room Air Room Air Allergies Coded Allergies: NO KNOWN ALLERGIES (10/07/14) Reconcile Medications Albuterol Sulfate (Proventil Hfa) 90 MCG HFA.AER.AD 2 PUF INH DAILY PRN COPD . Aspirin (Children's Aspirin) 81 MG TAB.CHEW 1 TAB PO DAILY HEART/BLOOD ( Reported) Atorvastatin Calcium 40 MG TABLET 40 MG PO 1700 cholesterol . Folic Acid 1 MG TABLET 1 TAB PO DAILY SUPPLEMENT (Reported) . Lisinopril 10 MG TABLET 10 MG PO DAILY htn . Metoprolol Succ XL (Toprol XL) 100 MG TAB.ER.24H 100 MG PO DAILY hypertension . Triage Nurses Notes Reviewed? yes HPI: Patient is a 52-year-old male with past medical history of hypertension, hyperlipidemia, alcohol dependence, COPD, and myocardial infarction, with no prior stroke or TIA, and no family history of those diagnoses, who is brought in today by his via private vehicle with symptoms consistent with a stroke. He was brought emergently from triage straight to the CT scanner with me at bedside and underwent noncontrast CT followed shortly thereafter by CTA of the head and neck. NIH stroke scale at arrival was 14. Stroke alert was called at the time of arrival. Past History Travel History Traveled to [place] past 21 day No Medical History Any Pertinent Medical History? 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 MOTHER (Brain Tumor). BROTHER (MS). Hx Contributory? Yes Review of Systems Review of Systems Constitutional: Reports: see HPI. Comments Other than the features mentioned in history of present illness above, a detailed review of systems was not possible secondary to the patient's dense aphasia Physical Exam Physical Exam General Appearance: moderate distress Cranial Nerves: facial droop Comments: HEENT: Positive facial droop. Inspection of the head reveals a normocephalic cranium with no signs of trauma. Ophtho: Extraocular muscles are seemingly intact, no dense gaze preference. Neck: No carotid bruits Respiratory: The lungs are clear and equal to auscultation bilaterally without wheezes, rales, or rhonchi. The patient exhibits no signs of labored breathing. Cardiac: Regular rhythm and non-tachycardic without appreciable murmurs on auscultation. No obvious JVD. GI: No distention or wincing on deep palpation : Deferred Neuro: Patient has dense aphasia and dysarthria, with right-sided hemiparesis. He has right-sided pronator drift and his right lower extremity has little effort against gravity. Testing of sensory, extinction, and Mini-Mental Status Examination is difficult secondary to aphasia. NIH stroke scale 14 at arrival. Dermatologic: Dermatologic examination reveals no diffuse rashes or exanthems, no petechiae, no ecchymoses, and no other signs of erythema or infection. Core Measures CVA/TIA Diagnosis: Yes NIH Stroke Scale NIH Stroke Scale Response Value Level of Consciousness alert 0 LOC Questions answers both correctly 0 LOC Commands obeys both correctly 0 Best Gaze normal 0 Visual [place] no visual loss 0 Facial Paresis partial 2 Motor Arm - Left no drift 0 Motor Arm - Right can't resist gravity 2 Motor Leg - Left no drift 0 Motor Leg - Right no effort against gravity 3 Limb Ataxia present in two limbs 2 Sensory normal 0 Best Language severe aphasia 2 Dysarthria near to unintelligible 2 Extinction and Inattention no neglect 0 Total 13 Date Last Known Well: 01/19/18 Time Last Known Well: 2099 tPA Risk/Benefit discussion I have discussed the risks, benefits, and alternatives of Alteplase treatment including: - If given promptly, can resolve or have major improvement in stroke symptoms. - Bleeding (hemorrhage) is the most common risk that can occur. - Bleeding may occur into the brain and cause~ocean transportation intermediary serious disability~ including - this is rare, affecting about 1% of patients. - Alternative treatments with proven benefit for patients with stroke include aspirin and care in a specialized unit where staff members pay careful attention to a variety of basic aspects of care. tPA given? No Sepsis Present: No Sepsis Focused Exam Completed? No Progress Differential Diagnosis: intracranial Hem., intracranial mass/tumor, stroke, subarachnoid Hem., vertebrobasilar insuff. Plan of Care: Orders Procedure Date/time Status Nothing by Mouth 01/22 B Active ED Holding Orders 01/22 1856 Active Admit to inpatient 01/22 1856 Active Code Status 01/22 1856 Active URINALYSIS 01/21 1659 Active TROPONIN LEVEL 01/21 1659 Complete COMPREHENSIVE METABOLIC PANEL 01/21 1659 Complete CBC WITHOUT DIFFERENTIAL 01/21 1659 Complete EKG 01/21 1659 Active Laboratory Tests 01/21/18 1700: Anion Gap 12, Estimated GFR > 60, BUN/Creatinine Ratio 23.3, Glucose 112 H, Calcium 9.8, Total Bilirubin 1.5 H, AST 27, ALT 21, Alkaline Phosphatase 70, Troponin I < 0.01, Total Protein 7.2, Albumin 4.3, Globulin 2.9, Albumin/ Globulin Ratio 1.5, CBC w Diff NO MAN DIFF REQ, RBC 4.68 L, MCV 96.9 H, MCH 33.1 H, MCHC 34.1, RDW 14.4, MPV 7.8, Gran % 62.0, Lymphocytes % 25.1, Monocytes % 10.9 H, Eosinophils % 1.6, Basophils % 0.4, Absolute Granulocytes 3.8, Absolute Lymphocytes 1.5, Absolute Monocytes 0.7 H, Absolute Eosinophils 0.1, Absolute Basophils 0 Initial ED EKG: normal axis, normal intervals, normal p-waves, normal QRS complex, normal sinus rhythm, no ST T wave changes Prior EKG: unchanged Comments: Arrival: Discussed case with Dr. Doty from neurology immediately after calling the stroke alert. Please see times from recovery unit operator. 1710 hrs.: Discussed with once she arrived in the waiting room the onset of the patient's symptoms. Reportedly they were first noted yesterday morning, over 36 hours ago, and he was last seen normal almost 48 hours ago when he went to bed on Friday evening. Received a call from [facility] indicating a positive head CT showing a subacute stroke suggestive of a left MCA occlusion with left basal ganglia findings around the caudate and putamen. 1732 hrs.: Discussed the case with [facility] neurointerventionalist who agrees that the patient is well outside the window even for the new techniques and clot retrieval. They stated that they were happy to accept the patient, but admitted that they have no interventions that would not be available through our team here. I discussed this again with Dr. Doty from our neurology service and he agreed. Patient hospitalized here for routine stroke care. Departure Departure Time of Disposition: 1732 Disposition: STILL A PATIENT Condition: Stable Clinical Impression Primary Impression: Left acute arterial ischemic stroke, MCA (middle cerebral artery) Referrals: Fadumo Booth MD (PCP/Family) Departure Forms: Customer Survey General Discharge Information Admission Note Spoke With: Jitendra Hess MD Documentation of Exam: Documentation of any treatments & extenuating circumstances including Concerns Regarding Discharge (functional status, medication knowledge or non-compliance, living conditions, etc.) that warrant an admission rather than observation: Patient requires admission for a dense massive stroke which is not amenable to neuro interventional clot retrieval. Admitted for stroke care. Critical Care Note Critical Care Note Critical Care Time: 30-74 min Comments: Critical care time spent > 45 minutes. The patient was suffering from a critical illness that acutely impairs one or more vital organ systems and there is a high probability of imminent or life threatening deterioration in the patient's condition. During this time I was personally involved in activities including, a stroke alert, discussing with neurology, discussing with [facility] neuro interventional, consulting multiple specialists, and decision making of high complexity to assess, manipulate, and support vital organ system failure (in this case, L MCA CVA) and/or to prevent further life threatening deterioration of the patient's condition. The failure to initiate these interventions on an urgent basis would likely result in sudden, clinically significant or life threatening deterioration in the patient's condition.
[2018-01-21 17:25] LABS: ABSOLUTE BASOPHIL COUNT 0 /CUMM (0.0-0.2); ABSOLUTE EOSINOPHIL COUNT 0.1 /CUMM (0.0-0.7); ABSOLUTE GRANULOCYTE CT 3.8 /CUMM (1.4-6.5); ABSOLUTE LYMPH COUNT 1.5 /CUMM (1.2-3.4); ABSOLUTE MONOCYTE COUNT 0.7 /CUMM (0.10-0.60); BASOPHIL % 0.4 % (0.0-2.0); EOSINOPHIL % 1.6 % (0-5); HEMATOCRIT 45.3 % (42-52); MEAN CORPUSCULAR HGB 33.1 PG (27.0-31.0); MEAN CORPUSCULAR HGB CONC 34.1 G/DL (33.0-37.0); MEAN CORPUSCULAR VOLUME 96.9 FL (80.0-94.0); MEAN PLATELET VOLUME 7.8 FL (7.4-10.4); PLATELET COUNT 192 /CUMM (130-400); RBC DISTRIBUTION WIDTH 14.4 % (11.5-14.5); RED BLOOD CELL CT 4.68 /CUMM (4.70-6.10); WHITE BLOOD CELL COUNT 6.2 /CUMM (4.8-10.8)
--- NOTE | 2018-01-21 17:55 | CT SCAN REPORT ---
CT ANGIOGRAM NECK WITH CONTRAST CT ANGIOGRAM BRAIN WITH CONTRAST CLINICAL INFORMATION: Right-sided hemiparesis. COMPARISON: CT head performed earlier the same day. TECHNIQUE: Test bolus sequences followed by intravenous administration 95 mL of Optiray 320. Helical imaging was performed in the axial plane from the thoracic inlet to the skull vertex. Delayed postcontrast imaging of the head was also performed. The data was processed at the histology technologist workstation for generation of MIP sequences. Angled MIPs and volume rendered reformatted images were also generated at an offline 3D workstation. Stenoses are assessed in accordance with NASCET criteria unless otherwise indicated. FINDINGS: BRAIN: As discussed on the earlier noncontrast head CT, there is a acute to subacute appearing infarct involving the left caudate, and putamen, and anterior limb of the left internal capsule as well as a portion of the left operculum in the left MCA territory. There is cytotoxic edema at the sites of infarction without significant mass effect. No evidence of hemorrhagic transformation. No hydrocephalus or midline shift. Persistent extensive nonspecific hypoattenuation throughout the supratentorial white matter, possibly advanced chronic microangiopathy though nonspecific. CERVICAL SOFT TISSUES AND LUNG APICES: The imaged upper lungs are clear. No significant soft tissue findings are appreciated within the neck. There is multilevel cervical spondylosis. Retention cyst within the left sphenoid sinus. NECK CTA: There is a 3 great vessel branch configuration off of the aortic arch. Atherosclerotic disease results in a moderate to severe stenosis of the origin of the left subclavian artery. Left common carotid artery and brachiocephalic artery origins are widely patent. Right subclavian artery is mildly stenotic secondary atherosclerotic calcification. Calcific atherosclerotic disease results in a severe stenosis of the left vertebral artery origin and left V1 vertebral artery segment. Left vertebral artery is dominant. There is a moderate to severe stenosis of the right vertebral artery at the V1 V2 junction. The on the V1 segment of the left vertebral artery is widely patent. Atherosclerotic disease results in mild narrowing of the left common carotid artery throughout its course. The left internal carotid artery is occluded at its origin and remains occluded throughout the cervical segment. The right common carotid artery is widely patent. Atherosclerotic calcification results in a less than 50% stenosis of the proximal right cervical ICA. BRAIN CTA: The left internal carotid artery remains occluded throughout the entire cervical segment and the intracranial segment to the level of the partially reconstituted left paraclinoid segment. There is a filling defect within the left supraclinoid ICA concerning for nonocclusive thrombus. There is decreased attenuated contrast opacification of the left A1 and left M1 MCA segments. Thrombotic occlusion of the mid left M1 MCA segment. There is fairly robust reconstitution of the more distal left MCA branches with one of the left sylvian MCA branches remaining occluded. Calcific atherosclerotic disease results in moderate to severe segmental narrowing of the right paraclinoid ICA segment and mild narrowing of the cavernous segment. 1.5 mm aneurysm versus infundibulum at the origin of the inferolateral trunk off of the cavernous right ICA. Calcific atherosclerotic disease results in mild luminal narrowing of the left intradural vertebral artery. The remainder the vertebrobasilar system and the posterior cerebral artery complexes are widely patent. The anterior cerebral artery complexes are widely patent bilaterally and the right middle cerebral artery complex is widely patent. IMPRESSION: - Redemonstration of an evolving acute to subacute left MCA territory infarct involving the left basal ganglia, anterior limb of the left internal capsule, and a portion of the left operculum. No significant mass effect at this time. - Occlusion of the left internal carotid artery at its cervical origin. The left internal carotid artery remains occluded throughout the entire cervical segment and the intracranial segment to the level of the partially reconstituted left paraclinoid segment. There is a filling defect within the left supraclinoid ICA concerning for nonocclusive thrombus that extends to the left carotid terminus with associated attenuated caliber of the left A1 and proximal left M1 MCA segments. - Acute thrombotic occlusion of the mid left M1 MCA segment with fairly robust reconstitution of the more distal left sylvian MCA branches, one of which remains occluded throughout its course. There is mild oligemia within the left MCA territory. - Less than 50% stenosis involving the proximal right internal carotid artery. Calcific atherosclerotic disease results in a moderate to severe stenosis of the right paraclinoid ICA segment. - Atherosclerotic disease results in a moderate to severe stenosis of the left subclavian artery origin and a severe stenosis of the left vertebral artery origin. There is also a moderate to severe stenosis involving the right vertebral artery at the V1/V2 junction. - There is a 1.5 mm aneurysm versus infundibulum at the origin of the inferolateral trunk off of the cavernous right ICA. - Persistent extensive nonspecific hypoattenuation throughout the supratentorial white matter, possibly advanced chronic microangiopathy though nonspecific. Stroke protocol CTA was discussed with Dr. Nadir Vela at 5:46 PM and 01/21/2018.
--- NOTE | 2018-01-21 17:58 | RADIOLOGY REPORT ---
EXAMINATION: CHEST 1 VIEW CLINICAL INFORMATION: CVA. Right hemiparesis. COMPARISON: 12/16/2017. TECHNIQUE: An AP view of the chest is provided. FINDINGS: The cardiac silhouette is not enlarged. The mediastinal and hilar contours are unremarkable. There are neither pleural effusions nor pneumothoraces. There are no consolidations. The osseous structures are stable. IMPRESSION: No evidence for acute disease.
--- NOTE | 2018-01-21 20:00 | History & Physical ---
Mele Dunbar [birth year]181957: General Information and HPI MD Statement: I have seen and personally examined CÉSAR DICKEY and documented this H&P. The patient is a 52 year old M who presented with a patient stated chief complaint of [right sided weakness]. Source of Information: patient Exam Limitations: no limitations, clinical condition History of Present Illness: The patient is a 52 yo man with PMHx of HTN, HLP, alcohol dependence, COPD, PVD, and CAD who is here with CC of right sided weakness that started from two days prior to admission. He was brought to ER for concern of "Stroke" by his . He was relatively fine till two days ago (01/19/18), that he abruptly felt weakness in his right side and aphasia. He has no difficulty understanding what is told to him but he has severe aphasia (Broca's aphasia) and at the time of H/ P no family member was present to help with the history. He was not compliant with his medications and is alcohol dependent. He had deteriotion of his weakness and aphasia in the past two days and his brought him to ER. Since his symptoms started two days ago, neurologist did not recommend tPA or intervention. NIH stroke score at admission was 14. PMHx: HTN, Pulm HTN, PTE, HLP, CAD, severe peripheral vascular disease, history of cardiac thrombus, left lower extremity emboli s/p embolectomy, s/p cardiac arrest (2003), COPD, Alcohol dependent PSHx: RCA stent (2012), aorto-bifemoral bypass, embolectomy Social Hx: Smoker, heavy drinker, poor medical compliance Lab: Ca: 9.8 Trop: 0.01 BS: 112 Chol: 295, LDL: 207, HDL: 62 imaging: Head CT: Low attenuation of the left basal ganglia consistent with a subacute infarct. No evidence for hemorrhage. Head CTA: - Redemonstration of an evolving acute to subacute left MCA territory infarct involving the left basal ganglia, anterior limb of the left internal capsule, and a portion of the left operculum. No significant mass effect at this time. - Occlusion of the left internal carotid artery at its cervical origin. The left internal carotid artery remains occluded throughout the entire cervical segment and the intracranial segment to the level of the partially reconstituted left paraclinoid segment. There is a filling defect within the left supraclinoid ICA concerning for nonocclusive thrombus that extends to the left carotid terminus with associated attenuated caliber of the left A1 and proximal left M1 MCA segments. - Acute thrombotic occlusion of the mid left M1 MCA segment with fairly robust reconstitution of the more distal left sylvian MCA branches, one of which remains occluded throughout its course. There is mild oligemia within the left MCA territory. - Less than 50% stenosis involving the proximal right internal carotid artery. Calcific atherosclerotic disease results in a moderate to severe stenosis of the right paraclinoid ICA segment. - Atherosclerotic disease results in a moderate to severe stenosis of the left subclavian artery origin and a severe stenosis of the left vertebral artery origin. There is also a moderate to severe stenosis involving the right vertebral artery at the V1/V2 junction. - There is a 1.5 mm aneurysm versus infundibulum at the origin of the inferolateral trunk off of the cavernous right ICA. - Persistent extensive nonspecific hypoattenuation throughout the supratentorial white matter, possibly advanced chronic microangiopathy though nonspecific. Allergies/Medications Allergies: Coded Allergies: NO KNOWN ALLERGIES (10/07/14) Home Med list Albuterol Sulfate (Proventil Hfa) 90 MCG HFA.AER.AD 2 PUF INH DAILY PRN COPD . Aspirin (Children's Aspirin) 81 MG TAB.CHEW 1 TAB PO DAILY HEART/BLOOD ( Reported) Atorvastatin Calcium 40 MG TABLET 40 MG PO 1700 cholesterol . Folic Acid 1 MG TABLET 1 TAB PO DAILY SUPPLEMENT (Reported) . Lisinopril 10 MG TABLET 10 MG PO DAILY htn . Metoprolol Succ XL (Toprol XL) 100 MG TAB.ER.24H 100 MG PO DAILY hypertension . Compliance With Home Meds: POOR Past History Travel History Traveled to [place] past 21 day No Medical History Neurological: NONE EENT: NONE Cardiovascular: CAD, hypertension, hyperlipidemia (PVD), myocardial infarction, STENT Respiratory: asthma, COPD Gastrointestinal: NONE Hepatic: NONE Renal: NONE Musculoskeletal: NONE Psychiatric: alcohol dependence Endocrine: NONE Blood Disorders: NONE Cancer(s): NONE HAND CEMENTER/Reproductive: NONE Other Medical Hx: Coronary artery disease, hypertension, hyperlipidemia, alcohol abuse, alcohol withdrawal seizures, leg claudication, peripheral vascular disease History of MRSA: No History of VRE: No History of CDIFF: No Surgical History Surgical History: none Past Family/Social History Family History Relations & Conditions if any FATHER (Colon cancer). MOTHER (Brain Tumor). BROTHER (MS). Psychosocial History Who Do You Live With? spouse, child Services at Home: None Primary Language: Vincentian ETOH Use: 5 Illicit Drug Use: U Functional Ability ADLs Independent: dressing, eating, toileting, bathing. Ambulation: independent IADLs Independent: shopping, housework, finances, food prep, telephone, transportation , medication admin. Review of Systems Review of Systems Constitutional: Reports: see HPI. EENTM: Reports: see HPI. Cardiovascular: Reports: see HPI, chest pain. Respiratory: Reports: see HPI. GI: Reports: see HPI. Genitourinary: Reports: see HPI. Musculoskeletal: Reports: see HPI. Skin: Reports: see HPI. Neurological/Psychological: Reports: see HPI. Hematologic/Endocrine: Reports: see HPI. Immunologic/Allergic: Reports: see HPI. Exam & Diagnostic Data Last 24 Hrs of Vital Signs/I&O Vital Signs Date Time Temp Pulse Resp B/P B/P Pulse O2 O2 Flow FiO2 Mean Ox Delivery Rate 01/21 2157 98.4 61 18 170/92 93 Room Air 01/21 2103 Room Air 01/21 2020 62 18 157/76 96 Room Air 01/21 2000 60 18 159/87 96 Room Air 01/21 1940 56 18 151/79 96 Room Air 01/21 1920 60 18 166/88 97 Room Air 01/21 1838 58 18 160/83 97 Room Air Room Air 01/21 1823 62 18 150/64 96 Room Air Room Air 01/21 1808 63 18 154/80 96 Room Air Room Air 01/21 1756 65 18 169/82 98 Room Air Room Air 01/21 1753 60 18 169/82 100 Room Air Room Air 01/21 1747 98 Room Air Room Air 01/21 1725 67 20 146/85 98 Room Air Room Air 01/21 1659 98.5 84 24 128/74 98 Room Air Room Air Intake & Output 01/22 0800 01/22 0000 01/21 1600 Intake Total 0 Output Total Balance 0 Intake, Oral 0 Number 0 Bowel Movements Patient 166 lb Weight Weight Bed scale Measurement Method Physical Exam General Appearance Alert, Cooperative, No Acute Distress Skin No Rashes, No Breakdown, No Significant Lesion Skin Temp/Moisture Exam: Warm/Dry Sepsis Skin Exam (color): Normal for Ethnicity HEENT Atraumatic, PERRLA, EOMI (Rt sided facial droop) Neck Supple, No JVD, +2 Carotid Pulse wo Bruit, No LAD Cardiovascular Regular Rate, Normal S1, Normal S2, No Murmurs, Gallops Lungs Clear to Auscultation, Normal Air Movement Abdomen Normal Bowel Sounds, Soft, No Tenderness Neurological Awakwe and alert, crainial nerves II-XII intact, Aphasia, right pronator drift, Strenght 3/5 x 4, Gait not assessed, passed bedside swallow test. Extremities No Clubbing, No Cyanosis, No Edema, Normal Pulses, No Tenderness/ Swelling Vascular Normal Pulses, Pulses Symmetrical Sepsis Peripheral Pulse Location: Dorsalis Pedis Sepsis Peripheral Pulse Exam: Normal Sepsis Cap Refill Exam: <2 Sec Diagnostic Data EKG Results Normal and no change comparing to previous CXR Results no acute finding Assessment/Plan Assessment: Mr. Dickey is a 52 yo man with significant past medical history of HTN, CAD, HLP, MT, PVD, EtOH dependent, who is brought here due to CC of right sided body weakness and aphasia that started from two days ago. He was not able to give a good history due to his aphasia (Broca). He has right sided facial droop and weakness which is consistent to left sided CVA. Head CT showed an acute to subacute left MCA CVA with an occluded ipsilateral internal carotid artery. ECG was normal and no change seen comparing to his old one. Labs (CBC, BMP, Trop, LFT) are within normal limits. Based on the history and the physical exam the patient appears to have an acute (subacute) CVA, since his symptoms started two days ago he is well outside the therapeutic window for tPA or intervention (also same as per consult with neurologist). He passed the bedside swallow test, yet a formal swallow test has to be done. He is going to be closely watched in Tele and started on aspirin and statin. As Ranked By This Provider Problem List: 1. CVA (cerebral vascular accident) 2. EtOH dependence 3. Hypertension 4. Hyperlipidemia 5. S/P aorto-bifemoral bypass surgery Core Measures/Misc (03/23) Acute Coronary Syndrome ACS Diagnosis: No Congestive Heart Failure Congestive Heart Failure Diagnosis No Cerebrovascular Accident CVA/TIA Diagnosis: Yes NIH Stroke Scale: Total 10 Date Last Known Well: 01/19/18 Time Last Known Well: 2099 tPA Risk/Benefit discussion I have discussed the risks, benefits, and alternatives of Alteplase treatment including: - If given promptly, can resolve or have major improvement in stroke symptoms. - Bleeding (hemorrhage) is the most common risk that can occur. - Bleeding may occur into the brain and cause~manager voice serious disability~ including - this is rare, affecting about 1% of patients. - Alternative treatments with proven benefit for patients with stroke include aspirin and care in a specialized unit where staff members pay careful attention to a variety of basic aspects of care. tPA given? No Reason tPA not ordered Medical Contraindication Swallow Evaluation Pass Current/Past Hx AFib/AFlutter No No Antithrombotic d/t Medical Contraindication No Anticoagulant d/t Medical Contraindication No Statin d/t Medical Contraindication VTE (View Protocol) VTE Risk Factors Age>40 No Mechanical VTE Prophylaxis d/t N/A MechProphylax Ordered No VTE Pharm Prophylaxis d/t Medical Contraindication Sepsis (View protocol) Sepsis Present: No If YES complete Sepsis Event Note If YES complete Sepsis Event Note Jitendra Hess MD 01/21/180: Core Measures/Misc (03/23) Sepsis (View protocol) If YES complete Sepsis Event Note If YES complete Sepsis Event Note Attending MD Review Statement Attending Statement Attending MD Statement: examined this patient, discuss w/resident/PA/ART MUSEUM DOCENT, agreed w/resident/PA/ART MUSEUM DOCENT, reviewed EMR data (avail) Attending Assessment/Plan: 52M PMH HTN, HLD, CAD with RCA stent (2012), severe peripheral vascular disease s/p aorto-bifemoral bypass, pulmonary HTN, pulmonary embolism initially started on xarelto (stopped due to non compliance), history of cardiac thrombus, left lower extremity emboli s/p embolectomy, status post cardiac arrest (2003), COPD, Alcohol use disorder presenting with 2 days of aphasia and right sided hemiparesis. Symptoms started abruptly 2 days ago, initially improved, but then again worsened. Patient unable to give history due to difficulty speaking. He seems to understand what is being said and follows commands. He is unable to lift his right leg against gravity, and has weakness of the right arm. CTA of the head and neck show occluded left ICA, left MCA M1 occlusion, and stenosis of several vessels. Unfortunately, the patient presented beyond the window of tPA and neurovascular intervention (neurointerventional radiology was consulted by ER). 1. Acute left MCA ischemic stroke 2. Left ICA occlusion 3. Right hemiparesis 4. Aphasia 5. History of PAD Plan - Admit to telemetry - ASA, Plavix, statin - Echocardiogram - Vascular and neurology consults - Formal speech therapy evaluation - PT/OT - Check lipids, TSH, HbA1c - Continue home medications - Ativan PRN CIWA, if CIWA increases, can start standing Ativan, but would avoid if possible - Neuro checks - DVT PPx Tra Peña MD 01/22/18 0032: Core Measures/Misc (03/23) Sepsis (View protocol) If YES complete Sepsis Event Note If YES complete Sepsis Event Note Resident Review Statement Resident Statement: examined this patient, discussed with paid internship, agreed with paid internship, reviewed EMR data (avail) Other Findings: History of Present Illness 52-year-old man with past medical history of EtOH abuse/withdrawal/dependence, hypertension, hyperlipidemia, COPD, CAD/MT status post PCI with RCA stent, severe PAD/PVD status post femoropopliteal bypass, cardiac arrest, and pulmonary embolism brought in by his for concern of "stroke". Patient is aphasic and unable to offer subjective complaints or history of present illness. Collateral information is obtained from the ED provider and the EMR. Patient had progressively worsening right-sided weakness with loss of speech over the past 36 hours for which his took him to the [place] ED. NIHSS score was 14. ED stroke alert was called and case discussed by the ED provider with neurologist Dr. Doty whom recommended against TPA given the timeline of events. Y axis was contacted and case discussed with a neuro interventionalist who also recommended against any intervention given the prolonged timeline of events. Review of Systems Unobtainable Objective Vitals-temperature 98.5, HR 58-84, RR 18-24, BP 128-169/64-85, O2 96-100% on room air Physical Exam -General: Well developed, ill-appearing middle-aged man in no acute distress -HEENT: NCAT, PERRLA, EOMI, anicteric sclera, moist mucous membranes, obvious facial droop -Neck: Supple, no JVD/HJR, no bruits, trachea midline, no accessory respiratory muscle use -Cardio: Normal S1/S2 without murmurs, gallops, or rub; regular rate and rhythm -Pulmonary: Clear to auscultation bilaterally -Abdomen: Soft, non-tender, non-distended, bowel sounds intact -Neuro: Awake and alert, cranial nerves II through XII intact, speech aphasic, right pronator drift, strength 3/54, coordination/sensation intact, gait not assessed, passed bedside swallow evaluation -Extremities: Normal pulses, no edema Labs / Imaging / Studies -CBC: WBC 6.2, hemoglobin 15.5, hematocrit 45.3, platelet 192 -BMP: Sodium 139, potassium 4.7, chloride 104, CO2 23, BUN 21, creatinine 0.9, anion gap 12, glucose 112 -LFT: T bili 1.5, AST/ALT/ALP within normal limits -Misc: Troponin I <0.01 -CXR: No evidence for acute disease -EKG: Normal sinus rhythm -Echocardiogram 12/22/17: LVEF 65%, stage I diastolic dysfunction -CT head without IV contrast: * Low attenuation of the left basal ganglia consistent with a subacute infarct. * No evidence for hemorrhage. -CTA head/neck: - Redemonstration of an evolving acute to subacute left MCA territory infarct involving the left basal ganglia, anterior limb of the left internal capsule, and a portion of the left operculum. No significant mass effect at this time. - Occlusion of the left internal carotid artery at its cervical origin. The left internal carotid artery remains occluded throughout the entire cervical segment and the intracranial segment to the level of the partially reconstituted left paraclinoid segment. There is a filling defect within the left supraclinoid ICA concerning for nonocclusive thrombus that extends to the left carotid terminus with associated attenuated caliber of the left A1 and proximal left M1 MCA segments. - Acute thrombotic occlusion of the mid left M1 MCA segment with fairly robust reconstitution of the more distal left sylvian MCA branches, one of which remains occluded throughout its course. There is mild oligemia within the left MCA territory. - Less than 50% stenosis involving the proximal right internal carotid artery. Calcific atherosclerotic disease results in a moderate to severe stenosis of the right paraclinoid ICA segment. - Atherosclerotic disease results in a moderate to severe stenosis of the left subclavian artery origin and a severe stenosis of the left vertebral artery origin. There is also a moderate to severe stenosis involving the right vertebral artery at the V1/V2 junction. - There is a 1.5 mm aneurysm versus infundibulum at the origin of the inferolateral trunk off of the cavernous right ICA. - Persistent extensive nonspecific hypoattenuation throughout the supratentorial white matter, possibly advanced chronic microangiopathy though nonspecific. Assessment 52-year-old man with multiple medical problems significant for CAD/MT status post PCI with RCA stent, PAD/PVD status post femoropopliteal bypass, medication noncompliance, EtOH abuse/withdrawal/dependence, and cardiac arrest secondary to massive PE not on anticoagulation due to noncompliance seen for evaluation of right-sided weakness with loss of speech. Patient is unable to give subjective complaints as he is a phasic vital signs remain within normal limits. Physical exam demonstrates gross aphasia with right pronator drift and diminished strength in all 4 extremities. He passed a bedside swallow evaluation. Labs including CBC, serum chemistry, troponin, and hepatic function panel are within normal limits. Chest x-ray is unremarkable. CT imaging of the head demonstrates an acute to subacute left MCA CVA with an occluded ipsilateral internal carotid artery. EKG is normal sinus rhythm. Recent echocardiogram demonstrated a normal LVEF with stage I diastolic dysfunction. Clinically patient appears to have had an acute cerebrovascular accident and was well outside the window for any thrombolytic therapy or endovascular intervention. Patient is being admitted to the telemetry floor for telemetry monitoring, aspirin/statin therapy, PT/OT/swallow evaluation, neurochecks, and neurology/vascular evaluation. Problem list -Acute to subacute left MCA CVA -Occluded left internal carotid artery -CAD/MT status post PCI with RCA stent -History of cardiac arrest secondary to massive pulmonary embolism -EtOH abuse/withdrawal/dependence -medication noncompliance -Hypertension -Hyperlipidemia -Severe PAD/PVD status post femoropopliteal bypass Plan -Admit to telemetry floor -Telemetry monitoring -Elevate head of bed -Fall precautions -Neurochecks -CIWA -Aspirin 81 mg p.o. daily -Plavix 75 mg p.o. daily -Atorvastatin 80 mg p.o. daily -Ativan PRN per CIWA -Banana bag 1 -Neurology consult for acute CVA -Vascular surgery consult for occluded ICA/PAD -PT/OT/swallow evaluation -Check lipid panel, TSH, HbA1c -Transthoracic echo cardiac for evaluation of cardiogenic emboli -Pain control with intravenous acetaminophen -N.p.o. pending swallow evaluation -DVT prophylaxis with Alps -Full code
[2018-01-21 21:57] VITALS: BP 170/92
--- NOTE | 2018-01-21 22:14 | Admission Certification ---
Admission Certification Certification Statement - As attending physician, I certify that at the time of - admission, based on clinical presentation, severity of - symptoms, need for further diagnostic testing and - therapeutic interventions, and risk of adverse outcomes - without in-hospital treatment, in my clinical assessment, - this patient requires an acute hospital stay for a minimum - of two nights or longer. I have also considered psychsocial - factors such as support system, advanced age, financial - issues, cognitive issues, and failed out-patient treatments, - past re-admission history, safety of patient, and lack of - compliance as applicable. Specific rationale supporting this admission is: Acute left MCA stroke with right hemiparesis
[2018-01-22 06:57] VITALS: BP 146/82
--- NOTE | 2018-01-22 06:58 | PN- Housestaff ---
Daniel Carrasquillo 01/22/18 0658: Subjective Follow-up For: Left MCA/CVA-out of window for tpa Occluded left ICA Tele-Events Since Last Visit: Normal sinus rhythm, 54-62, 0.08, 0.16 Subjective: Patient seen and examined at bedside this morning. Patient continues to have significant right-sided deficits including expressive aphasia, facial droop, right-sided weakness, loss of fine motor skills. Patient had difficulty speaking this morning and only able to provide yes or no upon verbalization. Patient's frustration was very evident. Patient was given pen and paper and marker and whiteboard in order to attempt to write with his left hand but was unable to due to fine motor deficits right greater than left. Patient's will be in later and further information will be relayed. Patient was able to deny any chest pain, shortness of breath, palpitations, nausea, vomiting, diarrhea this morning. Was seen by PT for evaluation this morning. Was able to walk with assist of 2 and a walker with increased instability. PT recommended acute rehab upon discharge. Review of Systems Constitutional: Denies: see HPI. Objective Last 24 Hrs of Vital Signs/I&O Vital Signs Date Time Temp Pulse Resp B/P B/P Pulse O2 O2 Flow FiO2 Mean Ox Delivery Rate 01/22 0657 98.5 56 18 146/82 95 Room Air 01/22 0200 62 01/22 0000 55 01/21 2157 98.4 61 18 170/92 93 Room Air 01/21 2103 Room Air 01/21 2020 62 18 157/76 96 Room Air 01/21 2000 60 18 159/87 96 Room Air 01/21 1940 56 18 151/79 96 Room Air 01/21 1920 60 18 166/88 97 Room Air 01/21 1838 58 18 160/83 97 Room Air Room Air 01/21 1823 62 18 150/64 96 Room Air Room Air 01/21 1808 63 18 154/80 96 Room Air Room Air 01/21 1756 65 18 169/82 98 Room Air Room Air 01/21 1753 60 18 169/82 100 Room Air Room Air 01/21 1747 98 Room Air Room Air 01/21 1725 67 20 146/85 98 Room Air Room Air 01/21 1659 98.5 84 24 128/74 98 Room Air Room Air Intake & Output 07/19 0800 01/22 0000 01/21 1600 Intake Total 1000 0 Output Total 300 Balance 700 0 Intake, IV 1000 Intake, Oral 0 0 Number 0 0 Bowel Movements Output, Urine 300 Patient 166 lb Weight Weight Bed scale Measurement Method Physical Exam General Appearance: Alert, Oriented X3, Mild Distress, Patient unable to verbalize well given left MCA stroke and expressive aphasia HEENT: Atraumatic, PERRLA, EOMI Neck: +2 Carotid Pulse wo Bruit Cardiovascular: Regular Rate, Normal S1, Normal S2 Lungs: Clear to Auscultation, Normal Air Movement Abdomen: Normal Bowel Sounds, Soft, No Tenderness Neurological: Patient has signficiant right sided deficits including right sided facial droop and expressive aphasia Patients strength is decreased to 3/5 on the right extremities and 5/5 on the left Patient unable to follow commands on finger to nose and tests of dysmetria Babinski present on right side Right hand clumsy on attempting to write on paper Gait was visualized during PT evaluation with assistX2 and walker Extremities: No Clubbing, No Cyanosis, No Edema Vascular: Normal Pulses, Pulses Symmetrical Current Medications: Current Medications Sig/Yung Start time Last Medication Dose Route Stop Time Status Admin Acetaminophen 1,000 MG Q6P PRN 01/21 2200 AC IV Aspirin 300 MG ONCE ONE 01/21 1800 DC 01/21 CA 01/21 1801 1818 Aspirin Buffered 81 MG DAILY 01/22 09 AC 01/22 PO 0847 Atorvastatin Calcium 80 MG 1700 01/210 AC 01/22 PO 1521 Clopidogrel Bisulfate 75 MG DAILY 01/22 0900 AC 01/22 PO 0847 Cyanocobalamin/ 1 BAG ONCE ONE 01/21 2200 DC 01/21 Thiamine/Pyridoxine IV 01/22 0559 2357 Dextrose/Water 1,000 ML Dextrose/Sodium 1,000 ML SEE RATE 01/21 2200 CAN Chloride IV Folic Acid 1 MG DAILY 01/23 09 AC PO Heparin Sodium 5,000 UNIT Q8 01/23 06 AC (Porcine) SC Heparin Sodium 5,000 UNIT Q8 01/21 2200 DC (Porcine) SC Lorazepam 0 Q1P PRN 01/21 2200 AC IV Multivitamins 1 TAB DAILY 01/23 09 AC PO Thiamine HCl 100 MG DAILY 01/23 09 AC PO Last 24 Hrs of Lab/Simeno Results Last 24 Hrs of Labs/Mics: Laboratory Tests 01/22/18 0641: Anion Gap 11, Estimated GFR > 60, BUN/Creatinine Ratio 21.3, Hemoglobin A1c 5.4, Magnesium 1.7, TSH &T3 &Free T4 Intrp 3.320, CBC w Diff NO MAN DIFF REQ, RBC 4.57 L, MCV 98.0 H, MCH 33.3 H, MCHC 34.0, RDW 14.3, MPV 8.1, Gran % 67.2, Lymphocytes % 20.1 L, Monocytes % 10.5 H, Eosinophils % 1.6, Basophils % 0.6, Absolute Granulocytes 4.3, Absolute Lymphocytes 1.3, Absolute Monocytes 0.7 H, Absolute Eosinophils 0.1, Absolute Basophils 0 01/22/18 0300: Urine Color YEL, Urine Clarity CLEAR, Urine pH 6.5, Ur Specific [place] <= 1.005 , Urine Protein TRACE H, Urine Ketones 15 H, Urine Nitrite NEG, Urine Bilirubin NEG@ICTO, Urine Urobilinogen 4.0 H, Ur Leukocyte Esterase NEG, Ur Microscopic SEDIMENT EXAMINED, Urine RBC RARE, Urine WBC RARE, Ur Epithelial Cells FEW, Urine Bacteria RARE H, Urine Mucus FEW, Urine Hemoglobin NEG, Urine Glucose NEG 01/21/18 1700: Anion Gap 12, Estimated GFR > 60, BUN/Creatinine Ratio 23.3, Glucose 112 H, Calcium 9.8, Total Bilirubin 1.5 H, AST 27, ALT 21, Alkaline Phosphatase 70, Troponin I < 0.01, Total Protein 7.2, Albumin 4.3, Globulin 2.9, Albumin/ Globulin Ratio 1.5, Triglycerides 134, Cholesterol 295 H, LDL Cholesterol, Calc 207 H, HDL Cholesterol 62 H, Cholesterol/HDL Ratio 4.8, CBC w Diff NO MAN DIFF REQ, RBC 4.68 L, MCV 96.9 H, MCH 33.1 H, MCHC 34.1, RDW 14.4, MPV 7.8, Gran % 62.0, Lymphocytes % 25.1, Monocytes % 10.9 H, Eosinophils % 1.6, Basophils % 0.4, Absolute Granulocytes 3.8, Absolute Lymphocytes 1.5, Absolute Monocytes 0.7 H, Absolute Eosinophils 0.1, Absolute Basophils 0 Assessment/Plan Assessment: Patient is a 52-year-old male with past medical history of hypertension, hyperlipidemia, peripheral artery disease/peripheral vascular disease status post femoral-popliteal bypass, coronary artery disease/ME (2003) status post PCI with RCA stent (2012), small PE in (2016) discharged on xarelto but noncomlpiant , ethanol abuse. Patient is here for chief complaint of right-sided weakness that started 2 days prior to admission. Brought by his to the ER with concern for stroke. Was out of the window for TPA. Patient shown to have severe aphasia ([place]). NIH stroke score admission was 14. Vitals on admission were stable. Patient was last known well on 01/19/2018. Patient follows up with PCP Dr. Booth. CXR: Negative Head CT: There is low attenuation of the left basal ganglia, including the caudate and the putamen. This is consistent with a subacute infarct. CTA: Redemonstration of an evolving acute to subacute left MCA territory infarct involving the left basal ganglia, anterior limb of the left internal capsule, and a portion of the left operculum. - Occlusion of the left internal carotid artery at its cervical origin. The left internal carotid artery remains occluded throughout the entire cervical segment and the intracranial segment to the level of the partially reconstituted left paraclinoid segment. Problem list: 1. Acute to subacute left MCA CVAout of window for TPA 2. Occluded left ICA Plan: * Patient seen by neurologist Dr. Doty today. * Patient to have nothing by mouth until speech and swallow evaluation; * Will need ongoing PT, OT and speech therapy. She was able to walk with physical therapy today with assist 2 and a walker. Continues to have right- sided deficits. Patient has a right-sided facial droop and significant expressive aphasia. PT recommends acute rehab upon discharge. * Continue patient on aspirin, Plavix and statin 80 mg. * Follow-up with echocardiogram * Monitor patient for withdrawals to the past history of alcohol abuse CODE STATUS: Full code DVT prophylaxis: Heparin sc Diet: Regular Problem List: 1. Left acute arterial ischemic stroke, MCA (middle cerebral artery) 2. EtOH dependence Pain Ratin Pain Location: Patient denies pain Pain Goal: Remain pain free Pain Plan: Aspirin pain pathway Tomorrow's Labs & Rationales: CBC, BEP DVT/Prophylaxis: mechanical GaMonaeep 01/22/18 1438: Attending Review Statement Attending Statement Attending MD Statement: examined this patient, discuss w/resident/PA/WIRING MECHANIC, agreed w/resident/PA/WIRING MECHANIC, reviewed EMR data (avail), discussed with nursing, discussed with case mgmt Attending Assessment/Plan: Stroke in pt who is right handed with rt side weakness and expressive aphasia- pt has big left MCA stroke and complete left ica occlusion. will f/u on neuro recommendations. On asa /plavix and lipitor. ETOH abuse history- will monitor for withdrawls.
[2018-01-22 08:44] LABS: ABSOLUTE BASOPHIL COUNT 0 /CUMM (0.0-0.2); ABSOLUTE EOSINOPHIL COUNT 0.1 /CUMM (0.0-0.7); ABSOLUTE GRANULOCYTE CT 4.3 /CUMM (1.4-6.5); ABSOLUTE LYMPH COUNT 1.3 /CUMM (1.2-3.4); ABSOLUTE MONOCYTE COUNT 0.7 /CUMM (0.10-0.60); BASOPHIL % 0.6 % (0.0-2.0); EOSINOPHIL % 1.6 % (0-5); GRANULOCYTE % 67.2 % (42.2-75.2); HEMATOCRIT 44.7 % (42-52); MEAN CORPUSCULAR HGB 33.3 PG (27.0-31.0); MEAN PLATELET VOLUME 8.1 FL (7.4-10.4); PLATELET COUNT 166 /CUMM (130-400); RBC DISTRIBUTION WIDTH 14.3 % (11.5-14.5); RED BLOOD CELL CT 4.57 /CUMM (4.70-6.10); WHITE BLOOD CELL COUNT 6.4 /CUMM (4.8-10.8)
--- NOTE | 2018-01-22 12:46 | Cons- Neurology ---
General Information and HPI Consulting Request Date of Consult: 01/22/18 Requested By: Anil Ga MD History of Present Illness: 52-year-old male with multiple vascular risk factors including hypertension, hyperlipidemia and active smoking was admitted yesterday with aphasia and right hemiparesis. The deficit had occurred on the prior day however he and his family did not seek medical attention. CT and CTA from the emergency department showed a left MCA distribution ischemic infarction with occlusion of the left internal carotid artery and M1 segment of the left MCA. TPA was not administered due to timing of presentation. Allergies/Medications Allergies: Coded Allergies: NO KNOWN ALLERGIES (10/07/14) Home Med List: Albuterol Sulfate (Proventil Hfa) 90 MCG HFA.AER.AD 2 PUF INH DAILY PRN COPD . Aspirin (Children's Aspirin) 81 MG TAB.CHEW 1 TAB PO DAILY HEART/BLOOD ( Reported) Atorvastatin Calcium 40 MG TABLET 40 MG PO 1700 cholesterol . Folic Acid 1 MG TABLET 1 TAB PO DAILY SUPPLEMENT (Reported) . Lisinopril 10 MG TABLET 10 MG PO DAILY htn . Metoprolol Succ XL (Toprol XL) 100 MG TAB.ER.24H 100 MG PO DAILY hypertension . Review of Systems Review of Systems: Limited due to his aphasia Past History Travel History Traveled to [place] past 21 day No Medical History Blood Transfusion Hx: No Neurological: NONE EENT: NONE Cardiovascular: CAD, hypertension, hyperlipidemia (PVD), myocardial infarction, STENT Respiratory: asthma, COPD Gastrointestinal: NONE Hepatic: NONE Renal: NONE Musculoskeletal: NONE Psychiatric: alcohol dependence Endocrine: NONE Blood Disorders: NONE Cancer(s): NONE AMPHIBIAN CREWMEMBER/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 MOTHER (Brain Tumor). BROTHER (MS). Psychosocial History Where Do You Live? Home Who Do You Live With? spouse, child Services at Home: None Primary Language: Kyrgyz Smoking Status: Current Everyday Smoker ETOH Use: 5 Illicit Drug Use: U Functional Ability ADLs Independent: dressing, eating, toileting, bathing. Ambulation: independent IADLs Independent: shopping, housework, finances, food prep, telephone, transportation , medication admin. Exam & Diagnostic Data Vital Signs and I&O Vital Signs Date Time Temp Pulse Resp B/P B/P Pulse O2 O2 Flow FiO2 Mean Ox Delivery Rate 01/22 1000 76 01/22 0800 77 01/22 0657 98.5 56 18 146/82 95 Room Air 01/22 0200 62 01/22 0000 55 01/21 2157 98.4 61 18 170/92 93 Room Air 01/21 2103 Room Air 01/21 2020 62 18 157/76 96 Room Air 01/21 2000 60 18 159/87 96 Room Air 01/21 1940 56 18 151/79 96 Room Air 01/21 1920 60 18 166/88 97 Room Air 01/21 1838 58 18 160/83 97 Room Air Room Air 01/21 1823 62 18 150/64 96 Room Air Room Air 01/21 1808 63 18 154/80 96 Room Air Room Air 01/21 1756 65 18 169/82 98 Room Air Room Air 01/21 1753 60 18 169/82 100 Room Air Room Air 01/21 1747 98 Room Air Room Air 01/21 1725 67 20 146/85 98 Room Air Room Air 01/21 1659 98.5 84 24 128/74 98 Room Air Room Air Intake & Output 01/22 1600 01/22 0800 01/22 0000 Intake Total 1000 0 Output Total 300 Balance 700 0 Intake, IV 1000 Intake, Oral 0 0 Number 0 0 Bowel Movements Output, Urine 300 Patient 166 lb Weight Weight Bed scale Measurement Method Middle-aged male in no acute distress. He was awake, alert and cooperative. He was able to follow three-step command. Expressive speech was impaired with diminished volume of spontaneous speech, anomia, perseveration and dysarthria. Pupils were equal. Extraocular movements were full. He had a right facial paresis. There was a right hemiparesis. Babinski sign was present on the right. Right hand was clumsy. The gait was untested. Assessment/Plan Assessment: Acute, significant left hemispheric stroke with aphasia and right hemiparesis. It is unclear as to whether this was of thrombotic or embolic origin. Recommendations: Nothing by mouth until speech and swallow evaluation Will need ongoing PT, OT and ST ASA, lipid panel and statin DVT precautions Echocardiogram Will almost surely require STR with aggressive therapy Consult Acknowledgment - Thank you for your consult request.
[2018-01-22 14:30] VITALS: BP 158/83
--- NOTE | 2018-01-22 16:13 | RADIOLOGY REPORT ---
EXAMINATION: XR MODIFIED BARIUM SWALLOW CLINICAL INFORMATION: Aphasia. Coughing. Presumptive diagnosis of stroke. COMPARISON: None. TECHNIQUE: A modified barium swallow was performed with speech pathologist in attendance. Pur?e, honey thick, nectar thick, thin, bread, and cracker consistencies were given to the patient and the swallowing mechanism was observed fluoroscopically with several spot films taken using the last image hold feature. FLUOROSCOPY TIME: 2 minutes 47 seconds. FINDINGS: With all consistencies, the oropharyngeal phase of swallowing is mildly disordered with slight difficulty in posterior bolus propagation and with premature spill of contrast into the valleculae seen. Some pooling of contrast in the vallecula is noted with all consistencies. With thin liquid consistency, laryngeal aspiration is seen, eliciting a cough reflex. With head tilt to the right side while swallowing thin liquid, there is on one swallow no aspiration seen and on another swallow transient silent penetration seen. With solid consistencies, transient silent penetration of contrast is seen. IMPRESSION: 1. Laryngeal aspiration observed with thin liquids, eliciting a strong cough reflex. 2. Transient penetration of contrast with solid foods. 3. Pooling of contrast in the valleculae is noted with all consistencies. Speech pathologist assessment issued separately.
[2018-01-22 22:00] VITALS: BP 122/78
[2018-01-23 06:18] VITALS: BP 134/72
--- NOTE | 2018-01-23 07:04 | PN- Housestaff ---
Daniel Carrasquillo 01/23/18 0703: Subjective Follow-up For: Left MCA stroke Occlusion left ICA Tele-Events Since Last Visit: Sinus bradycardia, 58-62, 0.08, 0.16 Subjective: Patient seen and examined at bedside this morning. Continues to have expressive aphasia but is able to understand and answer yes or no in short phrases. Patient denies any pain at this time. No chest pain, palpitations shortness of breath or headaches reported. Patient claims that he is tolerating his grounds and honey nectar diet fairly well. He had failed barium swallow yesterday. Patient continues to have right-sided facial droop and weakness. He claims that his right arm is weaker in movement and sensations in his right lower extremity. We will continue to monitor patient's focal neurological deficits. Patient is afebrile with no bowel or bladder incontinence. Review of Systems Constitutional: Denies: see HPI. Objective Last 24 Hrs of Vital Signs/I&O Vital Signs Date Time Temp Pulse Resp B/P B/P Pulse O2 O2 Flow FiO2 Mean Ox Delivery Rate 01/23 0618 98.1 67 20 134/72 94 Room Air 01/22 2200 98.2 74 20 122/78 94 Room Air 01/22 2116 94 Room Air 01/22 1720 66 01/22 1430 98.6 64 17 158/83 95 Room Air 01/22 1400 76 01/22 1200 68 01/22 1000 76 01/22 0800 77 Intake & Output 01/23 0800 01/23 0000 01/22 1600 Intake Total 0 100 600 Output Total 200 300 Balance 0 -100 300 Intake, IV 100 400 Intake, Oral 0 0 200 Number 2 Bowel Movements Output, Urine 200 300 Patient 176 lb Weight Weight Bed scale Measurement Method Physical Exam General Appearance: Alert, Oriented X3, Cooperative, No Acute Distress, Expressive aphasia Neck: Supple, No JVD Cardiovascular: Regular Rate, Normal S1, Normal S2 Lungs: Clear to Auscultation, Normal Air Movement Abdomen: Normal Bowel Sounds, Soft, No Tenderness Neurological: Strength 4/5 in left upper/lower extremity Strength 2/5 in right upper/lower extremity Reflexes hyperactive bilaterally Positive babinski present Decreased sensation from elbow to hand on right upper extremity Extremities: No Clubbing, No Cyanosis, No Edema Vascular: Normal Pulses, Pulses Symmetrical Current Medications: Current Medications Sig/Yung Start time Last Medication Dose Route Stop Time Status Admin Acetaminophen 1,000 MG Q6P PRN 01/21 2200 AC 01/22 IV 2028 Aspirin Buffered 81 MG DAILY 01/22 0900 AC 01/22 PO 0847 Atorvastatin Calcium 80 MG 1700 01/210 AC 01/22 PO 1521 Clopidogrel Bisulfate 75 MG DAILY 01/22 0900 AC 01/22 PO 0847 Folic Acid 1 MG DAILY 01/23 09 AC PO Heparin Sodium 5,000 UNIT Q8 01/23 0600 AC 01/23 (Porcine) SC 0445 Lorazepam 0 Q1P PRN 01/21 2200 AC IV Multivitamins 1 TAB DAILY 01/23 900 AC PO Patient Medication 1 ED ONE ONE 01/22 1800 DC Teaching ED 01/22 1801 Thiamine HCl 100 MG DAILY 01/23 900 AC PO Last 24 Hrs of Lab/Simeon Results Last 24 Hrs of Labs/Mics: Laboratory Tests 01/23/18 0637: Anion Gap 12, Estimated GFR > 60, BUN/Creatinine Ratio 20.0, CBC w Diff NO MAN DIFF REQ, RBC 4.57 L, MCV 97.7 H, MCH 33.0 H, MCHC 33.7, RDW 14.3, MPV 8.1, Gran % 66.9, Lymphocytes % 20.7, Monocytes % 10.1 H, Eosinophils % 1.8, Basophils % 0.5, Absolute Granulocytes 3.8, Absolute Lymphocytes 1.2, Absolute Monocytes 0.6, Absolute Eosinophils 0.1, Absolute Basophils 0 Assessment/Plan Assessment: Patient is 52-year-old male past medical history of hypertension, hyperlipidemia , peripheral artery disease/peripheral vascular disease status post femoral- popliteal bypass, coronary artery disease/CO in 2003 status post PCI with RCA stent in 2012, small PE in 2015 discharged on Xarelto but noncompliant with medications, and significant history of ethanol abuse. Patient here for chief complaint of right-sided weakness that started 2 days prior to admission. Brought in by his to the ER with concern of stroke. A window for TPA. Patient shown to have severe expressive aphasia. NIH stroke score on admission was 14. Patient last known well on 01/19/2018. PLAN: * Patient failed modified barium swallow on 01/22/2018. However spoke to speech therapist and patient cleared for mechanical grounds and honey nectar. Will continue the diet as necessary. * Will continue physical therapy/Occupational Therapy evaluation, patient was likely will need acute rehab upon discharge. * Follow-up on echocardiogram. * Continue patient on aspirin, statin, Plavix * Monitor patient for alcohol withdrawal given significant history of alcohol abuse. * Follow up with vascular surgery today for left ICA occlusion Code Status: Full Code DVT PPx: Heparin SC Diet: grounds/honey nectar; failed barium but cleared from original swallow evaluation Problem List: 1. Alcohol withdrawal 2. Left acute arterial ischemic stroke, MCA (middle cerebral artery) Pain Ratin Pain Location: no pain identified at this time Pain Goal: Remain pain free Pain Plan: as per pain pathway Tomorrow's Labs & Rationales: CBC BEP DVT/Prophylaxis: pharmacological Anil Ga 01/23/18 1228: Attending MD Review Statement Attending Statement Attending MD Statement: examined this patient, discuss w/resident/PA/DRY CLIPPER TENDER, agreed w/resident/PA/DRY CLIPPER TENDER, reviewed EMR data (avail), discussed with nursing, discussed with case mgmt Attending Assessment/Plan: Stroke in pt who is right handed with rt side weakness and expressive aphasia- pt has big left MCA stroke and complete left ica occlusion. will f/u on neuro recommendations. On asa /plavix and lipitor. Awaiting vascular surgery consult. ETOH abuse history- will monitor for withdrawls. highest CIWA was 6. dw/ pt the care plan.
[2018-01-23 08:00] LABS: ABSOLUTE BASOPHIL COUNT 0 /CUMM (0.0-0.2); ABSOLUTE EOSINOPHIL COUNT 0.1 /CUMM (0.0-0.7); ABSOLUTE GRANULOCYTE CT 3.8 /CUMM (1.4-6.5); ABSOLUTE LYMPH COUNT 1.2 /CUMM (1.2-3.4); ABSOLUTE MONOCYTE COUNT 0.6 /CUMM (0.10-0.60); BASOPHIL % 0.5 % (0.0-2.0); EOSINOPHIL % 1.8 % (0-5); GRANULOCYTE % 66.9 % (42.2-75.2); HEMATOCRIT 44.7 % (42-52); MEAN CORPUSCULAR HGB CONC 33.7 G/DL (33.0-37.0); MEAN CORPUSCULAR VOLUME 97.7 FL (80.0-94.0); MEAN PLATELET VOLUME 8.1 FL (7.4-10.4); PLATELET COUNT 161 /CUMM (130-400); RBC DISTRIBUTION WIDTH 14.3 % (11.5-14.5); RED BLOOD CELL CT 4.57 /CUMM (4.70-6.10); WHITE BLOOD CELL COUNT 5.7 /CUMM (4.8-10.8)
--- NOTE | 2018-01-23 11:21 | PN- Neurology ---
Subjective Subjective: Awake and alert. Follows commands. Cleared for dysphagia diet Objective Vital Signs and I&Os Vital Signs Date Time Temp Pulse Resp B/P B/P Pulse O2 O2 Flow FiO2 Mean Ox Delivery Rate 01/23 0618 98.1 67 20 134/72 94 Room Air 01/22 2200 98.2 74 20 122/78 94 Room Air 01/22 2116 94 Room Air 01/22 1720 66 01/22 1430 98.6 64 17 158/83 95 Room Air 01/22 1400 76 01/22 1200 68 Intake & Output 01/23 1600 01/23 0800 01/23 0000 01/22 1600 01/22 0800 01/22 0000 Intake Total 0 158 760 6127 0 Output Total 250 200 200 300 300 Balance -250 -200 -100 300 700 0 Intake, IV 578 043 0277 Intake, Oral 0 0 200 0 0 Number 2 0 0 Bowel Movements Output, Urine 250 200 200 300 300 Patient 176 lb 166 lb Weight Weight Bed scale Bed scale Measurement Method Physical Exam: awake, alert mod-sev non fluent aphasia able to correctly point to objects mod R lower facial weakness R UE 3- R LE 3+ Current Medications: Current Medications Sig/Yung Start time Last Medication Dose Route Stop Time Status Admin Acetaminophen 1,000 MG Q6P PRN 01/21 2200 AC 01/23 IV 0954 Aspirin Buffered 81 MG DAILY 01/22 09 AC 01/23 PO 0841 Atorvastatin Calcium 80 MG 1700 01/21 2200 AC 01/22 PO 1521 Clopidogrel Bisulfate 75 MG DAILY 01/22 0900 AC 01/23 PO 0840 Folic Acid 1 MG DAILY 01/23 0900 AC 01/23 PO 0841 Heparin Sodium 5,000 UNIT Q8 01/23 0600 AC 01/23 (Porcine) SC 0445 Lorazepam 0 Q1P PRN 01/21 2200 AC IV Multivitamins 1 TAB DAILY 01/23 09 AC 01/23 PO 0838 Patient Medication 1 ED ONE ONE 01/22 1800 DC Teaching ED 01/22 1801 Thiamine HCl 100 MG DAILY 01/23 0900 AC 01/23 PO 0840 Assessment/Plan Assessment: Acute left MCA territory ischemic stroke in the setting of intra-and extracranial cerebral arterial sclerosis/stenosis/occlusion Plan: Antiplatelet and statin therapy DVT prophylaxis Patient and family stroke education PT OT and ST Excellent acute rehab candidate-> I have notified [facility]
--- NOTE | 2018-01-23 12:48 | Discharge Summary ---
Visit Information Visit Dates Admission Date: 01/21/18 Discharge Date: 01/28/2018 Hospital Course Course Attending Physician: Harmeet MIRANDA,Anil Romero Primary Care Physician: Leobardo MIRANDA,[facility] Course: 52-year-old man with past medical history of EtOH abuse/withdrawal/dependence, hypertension, hyperlipidemia, COPD, CAD/[place] status post PCI with RCA stent, severe PAD/PVD status post femoropopliteal bypass, cardiac arrest, and pulmonary embolism brought in by his for concern of "stroke". Patient is aphasic and unable to offer subjective complaints in the ER. Collateral information is obtained from the ED provider and the EMR. 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 NIHSS score was 14. ED stroke alert was called and case discussed by the ED provider with neurologist Dr. Doty whom recommended against TPA given the timeline of events. Y axis was contacted and case discussed with a neuro interventionalist who also recommended against any intervention given the prolonged timeline of events. --------- Vitals-temperature 98.5, HR 58-84, RR 18-24, BP 128-169/64-85, O2 96-100% on room air Labs / Imaging / Studies -CBC: WBC 6.2, hemoglobin 15.5, hematocrit 45.3, platelet 192 -BMP: Sodium 139, potassium 4.7, chloride 104, CO2 23, BUN 21, creatinine 0.9, anion gap 12, glucose 112 -LFT: T bili 1.5, AST/ALT/ALP within normal limits -Misc: Troponin I <0.01 -CXR: No evidence for acute disease -EKG: Normal sinus rhythm -Echocardiogram 12/22/17: LVEF 65%, stage I diastolic dysfunction -CT head without IV contrast: * Low attenuation of the left basal ganglia consistent with a subacute infarct. * No evidence for hemorrhage. -CTA head/neck: - Redemonstration of an evolving acute to subacute left MCA territory infarct involving the left basal ganglia, anterior limb of the left internal capsule, and a portion of the left operculum. No significant mass effect at this time. - Occlusion of the left internal carotid artery at its cervical origin. The left internal carotid artery remains occluded throughout the entire cervical segment and the intracranial segment to the level of the partially reconstituted left paraclinoid segment. There is a filling defect within the left supraclinoid ICA concerning for nonocclusive thrombus that extends to the left carotid terminus with associated attenuated caliber of the left A1 and proximal left M1 MCA segments. - Acute thrombotic occlusion of the mid left M1 MCA segment with fairly robust reconstitution of the more distal left sylvian MCA branches, one of which remains occluded throughout its course. There is mild oligemia within the left MCA territory. - Less than 50% stenosis involving the proximal right internal carotid artery. Calcific atherosclerotic disease results in a moderate to severe stenosis of the right paraclinoid ICA segment. - Atherosclerotic disease results in a moderate to severe stenosis of the left subclavian artery origin and a severe stenosis of the left vertebral artery origin. There is also a moderate to severe stenosis involving the right vertebral artery at the V1/V2 junction. - There is a 1.5 mm aneurysm versus infundibulum at the origin of the inferolateral trunk off of the cavernous right ICA. - Persistent extensive nonspecific hypoattenuation throughout the supratentorial white matter, possibly advanced chronic microangiopathy though nonspecific. Problem list -Acute to subacute left MCA CVA -Occluded left internal carotid artery -CAD/WV status post PCI with RCA stent -History of cardiac arrest secondary to massive pulmonary embolism -EtOH abuse/withdrawal/dependence -medication noncompliance -Hypertension -Hyperlipidemia -Severe PAD/PVD status post femoropopliteal bypass 1. Acute left MCA stroke Clinically patient appeared to have had an acute cerebrovascular accident and was well outside the window for any thrombolytic therapy or endovascular intervention. Patient is being admitted to the telemetry floor for telemetry monitoring, aspirin/statin therapy, PT/OT/swallow evaluation, neurochecks, and neurology/vascular evaluation. He was continued on aspirin 81, Lipitor 80 daily. He was started on Plavix 75 daily. He was evaluated by physical therapist and occupational therapist, recommended acute rehab. He was evaluated by speech and swallow therapist, failed bedside swallow evaluation. Modified barium swallow was done which showed laryngeal aspiration with thin liquids. He was started on ground and nectar thick diet. He was monitored on telemetry floor, no acute arrhythmias were found throughout the stay. Echocardiogram was done which showed normal EF. 2. Occlusion of left ICA Head and neck CTA was done with stroke protocol, he was found to have occluded left ICA at cervical region. Vascular surgery on board. 3. Alcohol detox Patient has history of alcohol abuse, last admission to [facility] for alcohol detox in December 2017. Given his alcohol history CIWA scores were monitored. He was given banana bag, nicotine thiamine, multivitamin, folate. 4. History of hypertension Patient usually takes lisinopril 10 mg daily and Toprol-XL 100 daily for hypertension. However both the hypertensive medications were held given his stroke to maintain permissive hypertension 5. Hyperlipidemia Continue statin 80 mg daily. He is full code DVT prophylaxis subcu heparin Regular diet Pain pathway Allergies: Coded Allergies: NO KNOWN ALLERGIES (01/22/18) Pertinent Lab Results: MBS IMPRESSION: 1. Laryngeal aspiration observed with thin liquids, eliciting a strong cough reflex. 2. Transient penetration of contrast with solid foods. 3. Pooling of contrast in the valleculae is noted with all consistencies. Head and neck CTA IMPRESSION: - Redemonstration of an evolving acute to subacute left MCA territory infarct involving the left basal ganglia, anterior limb of the left internal capsule, and a portion of the left operculum. No significant mass effect at this time. - Occlusion of the left internal carotid artery at its cervical origin. The left internal carotid artery remains occluded throughout the entire cervical segment and the intracranial segment to the level of the partially reconstituted left paraclinoid segment. There is a filling defect within the left supraclinoid ICA concerning for nonocclusive thrombus that extends to the left carotid terminus with associated attenuated caliber of the left A1 and proximal left M1 MCA segments. - Acute thrombotic occlusion of the mid left M1 MCA segment with fairly robust reconstitution of the more distal left sylvian MCA branches, one of which remains occluded throughout its course. There is mild oligemia within the left MCA territory. - Less than 50% stenosis involving the proximal right internal carotid artery. Calcific atherosclerotic disease results in a moderate to severe stenosis of the right paraclinoid ICA segment. - Atherosclerotic disease results in a moderate to severe stenosis of the left subclavian artery origin and a severe stenosis of the left vertebral artery origin. There is also a moderate to severe stenosis involving the right vertebral artery at the V1/V2 junction. - There is a 1.5 mm aneurysm versus infundibulum at the origin of the inferolateral trunk off of the cavernous right ICA. - Persistent extensive nonspecific hypoattenuation throughout the supratentorial white matter, possibly advanced chronic microangiopathy though nonspecific. HEAD CT Low attenuation of the left basal ganglia consistent with a subacute infarct. No evidence for hemorrhage. Disposition Summary Disposition Principal Diagnosis: Acute left MCA stroke Additional Diagnosis: Occlusion of left ICA Discharge Disposition: other general hospital Discharge Instructions General Discharge Information Code Status: Full Code Patient's Diet: chopped nectar Patient's Activity: As tolerated Follow-Up Instructions/Appts: follow-up with PCP in 1 week after discharge Follow-up with neurology in 1 week after discharge Follow-up with vascular surgery in 1 week after discharge Medications at Discharge Discharge Medications: Stop taking the following medications: Atorvastatin Calcium (Atorvastatin Calcium) 40 MG TABLET ORAL 5 PM Qty = 30 Continue taking these medications: Aspirin (Children's Aspirin) 81 MG TAB.CHEW 1 Tablet ORAL DAILY Comments: Last Taken:01/28/18 Time: 9:00 AM Folic Acid (Folic Acid) 1 MG TABLET 1 Tablet ORAL DAILY Qty = 90 Instructions: . Comments: Last Taken:01/28/18 Time:9:00 AM Lisinopril (Lisinopril) 10 MG TABLET 10 Milligram ORAL DAILY Qty = 30 Instructions: . Comments: NOT GIVEN Metoprolol Succ XL (Toprol XL) 100 MG TAB.ER.24H 100 Milligram ORAL DAILY Qty = 30 Instructions: . Comments: NOT GIVEN. Albuterol Sulfate (Proventil Hfa) 90 MCG HFA.AER.AD 2 Puff Inhale through mouth DAILY as needed for COPD Qty = 1 Instructions: . Comments: NOT GIVEN THIS ADMISSION Start taking the following new medications: Atorvastatin Calcium (Lipitor) 80 MG TABLET 1 Tablet ORAL DAILY Qty = 30 No Refills Comments: Last Taken: 01/27/18 Time: 7:00 PM Clopidogrel Bisulfate (Plavix) 75 MG TABLET 1 Tablet ORAL DAILY Qty = 30 No Refills Comments: Last Taken: 01/28/18 Time: 9:00 AM Multiple Vitamin (Multivitamins) 1 EACH TABLET 1 Tablet ORAL DAILY Qty = 30 No Refills Comments: Last Taken: 01/28/18 Time: 9:00 AM Thiamine HCl (B-1) 100 MG TABLET 1 Tablet ORAL DAILY Qty = 30 No Refills Comments: Last Taken: 01/28/18 Time: 9:00 AM Copies To: Leobardo MIRANDA,F[facility]um[facility]
[2018-01-23] MEDS ORDERED: LIPITOR80 M1 PO (12:53)
[2018-01-23] MEDS ORDERED: MULTIVITAMINS1 EAC9 PO (12:53)
[2018-01-23] MEDS ORDERED: PLAVIX75 M1 PO (12:53)
[2018-01-23] MEDS ORDERED: B-1100 MG PO (12:53)
--- NOTE | 2018-01-23 12:56 | Patient Discharge Instructions ---
Discharge Instructions General Discharge Information You were seen/treated for: Acute left MCA stroke Occlusion of Left ICA Special Instructions: Follow-up with PCP in 1 week after discharge. Follow-up with the neurologist in 1 week after discharge Follow-up with vascular surgeon in 1 week after discharge Please return to ED with loss of conciousness, chest pain, palpitations or shortness of breath. Diet Additional DIET Information: GROUND AND NECTAR THICK DIET Activity Full Activity/No Limits: Yes Acute Coronary Syndrome Inclusion Criteria At DC or during hospital stay patient has or had the following: ACS DIAGNOSIS No Discharge Core Measures Meds if any: Prescribed or Continued at Discharge Meds if any: NOT Prescribed or Continued at Discharge Congestive Heart Failure Inclusion Criteria At DC or during hospital stay patient has or had the following: CHF DIAGNOSIS No Discharge Core Measures Meds if any: Prescribed or Continued at Discharge Meds if any: NOT Prescribed or Continued at Discharge Cerebrovascular accident Inclusion Criteria At DC or during hospital stay patient has or had the following: CVA/TIA Diagnosis Yes Discharge Core Measures Meds if any: Prescribed or Continued at Discharge Antithrombotic Yes Statin (required if LDL =>70) Yes Anticoagulant Yes Meds if any: NOT Prescribed or Continued at Discharge Venous thromboembolism Inclusion Criteria VTE Diagnosis No VTE Type NONE VTE Confirmed by (Test) NONE Discharge Core Measures - Per Current guidelines, there needs to be overlap - treatment for the first 5 days of Warfarin therapy. - If discharged on Warfarin prior to 5 days of - overlap therapy, the patient will need to be - assessed for post discharge needs including - *Post discharge parental anticoagulation - *Warfarin and/or parental anticoagulation education - *Follow up date to check INR post discharge At least 5 days overlap therapy as Inpatient No Meds if any: Prescribed or Continued at Discharge Note: Overlap Therapy is Warfarin and Anticoagulant Meds if any: NOT Prescribed or Continued at Discharge
[2018-01-23 14:15] VITALS: BP 130/86
--- NOTE | 2018-01-23 16:12 | Cons- Vascular Surgery ---
Nilo Kenney 01/23/18 1557: General Information and HPI Consulting Request Date of Consult: 01/23/18 Requested By: Harmeet MIRANDA,Anil Romero Reason for Consult: Left internal carotid artery thrombosis Source of Information: neck cta Exam Limitations: clinical condition, physical impairment History of Present Illness: The patient is a 52 yo man with PMHx of HTN, HLP, alcohol dependence, COPD, PVD, and CAD who is here with CC of right sided weakness that started from two days prior to admission. He was brought to ER for concern of "Stroke" by his . He was relatively fine till two days ago (01/19/18), that he abruptly felt weakness in his right side and aphasia. He has no difficulty understanding what is told to him but he has severe aphasia (Broca's aphasia) and at the time of H/ P no family member was present to help with the history. He was not compliant with his medications and is alcohol dependent. He had deteriotion of his weakness and aphasia in the past two days and his brought him to ER. Since his symptoms started two days ago, neurologist did not recommend tPA or intervention. NIH stroke score at admission was 14. CT and CTA from the emergency department showed a left MCA distribution ischemic infarction with occlusion of the left internal carotid artery and M1 segment of the left MCA. TPA was not administered due to timing of presentation Allergies/Medications Allergies: Coded Allergies: NO KNOWN ALLERGIES (01/22/18) Home Med List: Albuterol Sulfate (Proventil Hfa) 90 MCG HFA.AER.AD 2 PUF INH DAILY PRN COPD . Aspirin (Children's Aspirin) 81 MG TAB.CHEW 1 TAB PO DAILY HEART/BLOOD ( Reported) Atorvastatin Calcium (Lipitor) 80 MG TABLET 1 TAB PO DAILY HLP Atorvastatin Calcium 40 MG TABLET 40 MG PO 1700 cholesterol . Clopidogrel Bisulfate (Plavix) 75 MG TABLET 1 TAB PO DAILY STROKE Folic Acid 1 MG TABLET 1 TAB PO DAILY SUPPLEMENT (Reported) . Lisinopril 10 MG TABLET 10 MG PO DAILY htn . Metoprolol Succ XL (Toprol XL) 100 MG TAB.ER.24H 100 MG PO DAILY hypertension . Multiple Vitamin (Multivitamins) 1 EACH TABLET 1 TAB PO DAILY NUTRITION Thiamine HCl (B-1) 100 MG TABLET 1 TAB PO DAILY SUPPORTIVE Past History Medical History Blood Transfusion Hx: No Neurological: NONE EENT: NONE Cardiovascular: CAD, hypertension, hyperlipidemia (PVD), myocardial infarction, STENT Respiratory: asthma, COPD Gastrointestinal: NONE Hepatic: NONE Renal: NONE Musculoskeletal: NONE Psychiatric: alcohol dependence Endocrine: NONE Blood Disorders: NONE Cancer(s): NONE DIAGRAMMER AND SEAMER/Reproductive: NONE Other Medical Hx: Coronary artery disease, hypertension, hyperlipidemia, alcohol abuse, alcohol withdrawal seizures, leg claudication, peripheral vascular disease Surgical History Pertinent Surgical History: 1 Family History Relations & Conditions If Any: FATHER (Colon cancer). MOTHER (Brain Tumor). BROTHER (MS). Psychosocial History Where Do You Live? Home Who Do You Live With? spouse, child Services at Home: None Primary Language: American Smoking Status: Current Everyday Smoker ETOH Use: 5 Illicit Drug Use: U Functional Ability ADLs Independent: dressing, eating, toileting, bathing. Ambulation: independent IADLs Independent: shopping, housework, finances, food prep, telephone, transportation , medication admin. Exam & Diagnostic Data Vital Signs and I&O Vital Signs Date Time Temp Pulse Resp B/P B/P Pulse O2 O2 Flow FiO2 Mean Ox Delivery Rate 01/23 1415 97.9 78 20 130/86 95 Room Air 01/23 0800 Room Air 01/23 0618 98.1 67 20 134/72 94 Room Air 01/22 2200 98.2 74 20 122/78 94 Room Air 01/22 2116 94 Room Air 01/22 1720 66 Intake & Output 01/23 1600 01/23 0800 01/23 0000 01/22 1600 01/22 0800 01/22 0000 Intake Total 0 132 925 2601 0 Output Total 250 200 200 300 300 Balance -250 -200 -100 300 700 0 Intake, IV 064 321 9413 Intake, Oral 0 0 200 0 0 Number 2 0 0 Bowel Movements Output, Urine 250 200 200 300 300 Patient 176 lb 176 lb 166 lb Weight Weight Bed scale Bed scale Measurement Method Physical Exam: Extremities: Strength 4/5 in left upper/lower extremity Strength 2/5 in right upper/lower extremity Reflexes hyperactive bilaterally Positive babinski present Decreased sensation from elbow to hand on right upper extremity No Clubbing, No Cyanosis, No Edema palpable distal pulses Assessment/Plan Assessment/Plan Mr. Sarabia is a 52-year-old male who presents with right-sided weakness and right- sided facial droop. Neck CTA demonstrates complete occlusion of left ICA. There is also a expressive aphasia noticed but is cognitively aware of his surroundings and responds to commands and is able to point appropriately with left upper extremity. Dr. Hernandez has reviewed this patient's scans and recommends dual antiplatelet therapy at this time. There is no need for emergent surgical intervention at this time. Follow-up will be done as an outpatient to discuss further possible surgical options. Recommendations: Start Dual antiplatelet therapy Follow-up with Dr. Hernandez as outpatient Consult Acknowledgment - Thank you for your consult request. Marbin Yang MD 01/24/18 0759: Assessment/Plan Consult Acknowledgment - Thank you for your consult request. Attending MD Review Statement Attending Statement Attending MD Statement: examined this patient Attending Assessment/Plan: 52y/o man presented with expressive aphasia and right hemiparesis. CTA confirmed left ICA occlusion. He has recovery of right leg function and some right hand function. Still has dense aphasia. Left carotid occlusion is not salvageable. He also has left SCA near complete occlusion with dominant left vertebral artery, and right ICA mild stenosis. Rehab for speech and motor recovery. Statin and antiplatelet Rx for life. Surveillance right carotid duplex in 3 months.
--- NOTE | 2018-01-23 17:10 | ECHOCARDIOGRAM REPORT ---
CÉSAR DICKEY Age: 52 : 1965 Gender: M Exam Date: 01/22/2018 17:12 Exam Location: 1 [facility] Ht (in): 73 Wt (lb): 166 BSA: 1.97 BP: 146 / 82 Ordering Physician: Tra Peña MD Referring Physician: Tra Peña MD Technologist: Oliva aCrrera [facility] Room Number: [id number] Indications: Stroke Rhythm: Sinus Technical Quality: Fair FINDINGS Left Ventricle Normal size left ventricle. Mild concentric left ventricular hypertrophy. No obvious regional wall motion abnormalities. Normal left ventricular ejection fraction visually estimated at 55%. Abnormal relaxation filling pattern of the left ventricle for age (stage 1 diastolic dysfunction). Right Ventricle Right ventricle at upper limits of normal. Right Atrium Normal right atrial size. Left Atrium Normal left atrial size. Interatrial septal aneurysm. Mitral Valve Mildly calcified mitral valve annulus. Mitral valve mildly thickened. Trace mitral regurgitation. Aortic Valve Trileaflet aortic valve. Diffuse mild thickening of the aortic valve cusps with mildly reduced excursion. Mild aortic regurgitation. No hemodynamically significant aortic stenosis. Tricuspid Valve Structurally normal tricuspid valve. Trace tricuspid regurgitation. Pulmonic Valve Pulmonic valve not well visualized, grossly normal. No pulmonic regurgitation. Pericardium No pericardial effusion. Great Vessels Normal size aortic root. Normal size inferior vena cava. CONCLUSIONS Normal size left ventricle. Mild concentric left ventricular hypertrophy. Normal left ventricular ejection fraction visually estimated at 55%. Abnormal relaxation filling pattern of the left ventricle for age (stage 1 diastolic dysfunction). Right ventricle at upper limits of normal. Normal atrial size. Interatrial septal aneurysm. Trace mitral regurgitation. Mild aortic regurgitation. No hemodynamically significant aortic stenosis. Trace tricuspid regurgitation. Vahid Faustin M.D. (Electronically Signed) Final Date: 23 January 2018 17:05 MEASUREMENTS (Male / Female) Normal Values 2D ECHO LV Diastolic Diameter PLAX 4.3 cm 4.2 - 5.9 / 3.9 - 5.3 cm LV Systolic Diameter PLAX 2.8 cm 2.1 - 4.0 cm LV Fractional Shortening PLAX 34.9 % 25 - 46 % LV Ejection Fraction 2D Teich 64.4 % IVS Diastolic Thickness 1.1 cm LVPW Diastolic Thickness 1.1 cm LV Relative Wall Thickness 0.5 RV Internal Dim ED PLAX 3.7 cm 1.9 - 3.8 cm LVOT Diameter 2.0 cm Aortic Root Diameter 3.1 cm LA Systolic Diameter LX 2.9 cm 3.0 - 4.0 / 2.7 - 3.8 cm LA Volume 37.0 cm 18 - 58 / 22 - 52 cm Ascending Aorta Diameter 3.2 cm DOPPLER AV Peak Velocity 182.0 cm/s AV Peak Gradient 13.2 mmHg AV Mean Velocity 136.0 cm/s AV Mean Gradient 8.0 mmHg AV Velocity Time Integral 34.7 cm LVOT Peak Velocity 108.0 cm/s LVOT Peak Gradient 4.7 mmHg LVOT Mean Velocity 72.5 cm/s LVOT Mean Gradient 3.0 mmHg LVOT Velocity Time Integral 20.5 cm LVOT Stroke Volume 64.4 cm AV Area Cont Eq vti 1.9 cm AV Area Cont Eq pk 1.9 cm MV Peak Velocity 135.0 cm/s MV Peak Gradient 7.3 mmHg MV Mean Velocity 61.7 cm/s MV Mean Gradient 2.0 mmHg Mitral E Point Velocity 52.8 cm/s Mitral A Point Velocity 67.6 cm/s Mitral E to A Ratio 0.8 MV PHT Velocity 140.0 cm/s MV Deceleration Prentiss 780.0 cm/s MV Pressure Half Time 53.8 ms MV Area PHT 4.1 cm MV Deceleration Time 166.0 ms TR Peak Velocity 142.0 cm/s TR Peak Gradient 8.1 mmHg Right Atrial Pressure 5.0 mmHg Pulmonary Artery Systolic Pressure 13.1 mmHg Right Ventricular Systolic Pressure 13.1 mmHg PV Peak Velocity 97.5 cm/s PV Peak Gradient 3.8 mmHg PV Mean Velocity 65.1 cm/s PV Mean Gradient 2.0 mmHg PV Velocity Time Integral 17.8 cm LV E' Lateral Velocity 6.9 cm/s Mitral E to LV E' Lateral Ratio 7.6 LV E' Septal Velocity 6.2 cm/s Mitral E to LV E' Septal Ratio 8.5
[2018-01-23 22:25] VITALS: BP 146/84
[2018-01-24 06:34] VITALS: BP 132/78
--- NOTE | 2018-01-24 08:25 | PN- Housestaff ---
Daniel Carrasquillo 01/24/18 0825: Subjective Follow-up For: L MCA infarct Tele-Events Since Last Visit: sinus bradycardia, rate 58 Subjective: Pt seen and examined at bedside this morning. He is able to sit comfortably in a chair. While he continues to have expressive aphasia, pt is now able to speak in 3-4 word utterances and needs less prompting. Comprehension is intact though pt becomes easily frustrated with inability to speak. Pt denies headache, chest pain, abdominal pain, leg pain. He reports mild SOB with increased cough productive of clear sputum and nasal congestion, not affected by position. Review of Systems Constitutional: Denies: see HPI. Objective Last 24 Hrs of Vital Signs/I&O Vital Signs Date Time Temp Pulse Resp B/P B/P Pulse O2 O2 Flow FiO2 Mean Ox Delivery Rate 01/24 0754 Room Air 01/24 0634 98.9 82 18 132/78 92 01/23 2225 97.6 70 18 146/84 96 Room Air 01/23 1800 66 20 01/23 1600 75 20 01/23 1600 Room Air 01/23 1415 97.9 78 20 130/86 95 Room Air Intake & Output 01/24 1600 01/24 0800 01/24 0000 Intake Total 200 Output Total 400 300 Balance -200 -300 Intake, Oral 200 Output, Urine 400 300 Patient 174 lb Weight Weight Bed scale Measurement Method Physical Exam General Appearance: Alert, Oriented X3, Cooperative, No Acute Distress Skin: No Rashes Skin Temp/Moisture Exam: Warm/Dry Sepsis Skin Exam (color): Normal for Ethnicity HEENT: Atraumatic, PERRLA, EOMI, Mucous Membr. moist/pink Neck: Supple, No JVD Cardiovascular: Regular Rate, Normal S1, Normal S2 Lungs: No increased work of breathing but breaths are slightly shallow, crackles apparent on inspiration in R lung base, L lung is CTA Abdomen: Soft, No Tenderness Neurological: LL and BEN extremity strength 5/5, RU extremity 1/5, RL extremity 3 /5 strength, sensation intact throughout, + R babinski, biceps and patellar reflexes symmetrical Extremities: No Edema Current Medications: Current Medications Sig/Yung Start time Last Medication Dose Route Stop Time Status Admin Acetaminophen 1,000 MG Q6P PRN 01/21 2200 AC 01/23 IV 0954 Aspirin Buffered 81 MG DAILY 01/22 09 AC 01/24 PO 0744 Atorvastatin Calcium 80 MG 1700 01/21 2200 AC 01/23 PO 1645 Clopidogrel Bisulfate 75 MG DAILY 01/22 900 AC 01/24 PO 0744 Folic Acid 1 MG DAILY 01/23 09 AC 01/24 PO 0744 Heparin Sodium 5,000 UNIT Q8 01/23 06 AC 01/24 (Porcine) SC 0610 Lorazepam 0 Q1P PRN 01/21 2200 AC IV Multivitamins 1 TAB DAILY 01/23 900 AC 01/24 PO 0744 Thiamine HCl 100 MG DAILY 01/23 900 AC 01/24 PO 0744 Last 24 Hrs of Lab/Simeon Results Last 24 Hrs of Labs/Mics: Laboratory Tests 01/24/18 0610: Anion Gap 10, Estimated GFR > 60, BUN/Creatinine Ratio 18.8, CBC w Diff NO MAN DIFF REQ, RBC 4.53 L, MCV 98.1 H, MCH 33.0 H, MCHC 33.6, RDW 14.4, MPV 8.1, Gran % 71.9, Lymphocytes % 17.1 L, Monocytes % 9.0, Eosinophils % 1.6, Basophils % 0.4, Absolute Granulocytes 4.7, Absolute Lymphocytes 1.1 L, Absolute Monocytes 0.6, Absolute Eosinophils 0.1, Absolute Basophils 0 Orders CIWA Score (last 24 hrs): 0 on 01/24/18 Assessment/Plan Assessment: 52YOM with past medical hx of HTN, HLD, PAD and PVD s/p femoral-popliteal bypass , CAD with [place] in 2003 and PCI with RCA event in 2012, small PE in 2015, and severe EtOH dependence. On arrival to the ED 3 days ago, NIH stroke scale score was 14 with last known well time on 01/19/18, 2 days before presentation. Pt was outside the window for tPA. On admission, CXR showed no intrathoracic findings, CT of the head showed developing L sided infarct, CTA showed L ICA 100% occlusion. On 01/22/18, Barium swallow demonstrated disordered swallowing. Currently, pt is on mechanical ground foods and nectar thick liquid diet. Function is slowly improving with PT, OT, and speech therapy. Problems and Plan 1. L MCA stroke * Pt presented to the ED 3 days ago and was found to have a L MCA territory infart causing R sided hemiplegia and expressive aphasia which continues to improve. * Continue PT, OT, and speech therapy as patient continues to show improvement. * Continue mechanical chopped and nectar thick liquid as per speech therapy. * Plan for discharge to Acute Rehab Facility as patient will need and can tolerate. 2. SOB, cough, nasal congestion * Pt has complained of slight difficulty breathing accompanied by cough and nasal congestion and independent of position. However, patient continues to remain afebrile and without leukocytosis. * Continue to monitor as patient is high risk for aspiration. 3. EtOH Dependence * Stable at this time. CIWA score is 0. 4. HTN and HLD * Stable 5. PAD and PVD * Stable. DVT prophylaxis with heparin. 6. CAD s/p [place] and PCI with RCA event * Stable at this time. No tele events. 7. PE * Stable. DVT prophylaxis with heparin. Diet: mechanical ground and nectar thick DVT Prophy: heparin Code Status: full Problem List: 1. ETOH abuse 2. Alcohol withdrawal 3. Left acute arterial ischemic stroke, MCA (middle cerebral artery) 4. CVA (cerebral vascular accident) Pain Ratin Pain Location: none Pain Goal: Remain pain free Pain Plan: remain pain free Tomorrow's Labs & Rationales: CBC, BEP Basil MIRANDA,Ashlyn 01/24/18 0957: Attending MD Review Statement Attending Statement Attending MD Statement: examined this patient, discuss w/resident/PA/FIRE INSPECTOR, agreed w/resident/PA/FIRE INSPECTOR, reviewed EMR data (avail), discussed with nursing, reviewed images Attending Assessment/Plan: 52-year-old male with past medical history of alcohol abuse, hypertension hyperlipidemia peripheral arterial disease was here with an acute left MCA infarct. We have him on antiplatelet therapy, modified diet for dysphagia and we are awaiting a bed at acute rehab. Right now we are allowing his blood pressure to remain stable without restarting his antihypertensives the plan is that they will be restarted when he leaves to rehab.
[2018-01-24 08:27] LABS: ABSOLUTE BASOPHIL COUNT 0 /CUMM (0.0-0.2); ABSOLUTE EOSINOPHIL COUNT 0.1 /CUMM (0.0-0.7); ABSOLUTE GRANULOCYTE CT 4.7 /CUMM (1.4-6.5); ABSOLUTE LYMPH COUNT 1.1 /CUMM (1.2-3.4); ABSOLUTE MONOCYTE COUNT 0.6 /CUMM (0.10-0.60); BASOPHIL % 0.4 % (0.0-2.0); EOSINOPHIL % 1.6 % (0-5); GRANULOCYTE % 71.9 % (42.2-75.2); HEMATOCRIT 44.4 % (42-52); MEAN CORPUSCULAR HGB CONC 33.6 G/DL (33.0-37.0); MEAN CORPUSCULAR VOLUME 98.1 FL (80.0-94.0); MEAN PLATELET VOLUME 8.1 FL (7.4-10.4); PLATELET COUNT 166 /CUMM (130-400); RBC DISTRIBUTION WIDTH 14.4 % (11.5-14.5); RED BLOOD CELL CT 4.53 /CUMM (4.70-6.10); WHITE BLOOD CELL COUNT 6.5 /CUMM (4.8-10.8)
[2018-01-24 14:17] VITALS: BP 144/84
[2018-01-24 22:04] VITALS: BP 132/80
[2018-01-25 06:32] VITALS: BP 128/80
[2018-01-25 08:00] VITALS: BP 128/80
--- NOTE | 2018-01-25 08:45 | PN- Housestaff ---
Khari Sparks 01/25/18 0844: Subjective Follow-up For: L MCA infarct Subjective: Patient seen resting in the bed, currently comfortable. Patient has difficulty speaking, can't get the words out, otherwise no active complaints. Denies headache, chest pain, palpitations or dizziness. Review of Systems Constitutional: Denies: chills, fever. Cardiovascular: Denies: chest pain, peripheral edema, syncope. Respiratory: Reports: cough, short of breath, sputum production. Denies: wheezing. Gastrointestinal: Denies: abdominal pain, nausea, vomiting. Objective Last 24 Hrs of Vital Signs/I&O Vital Signs Date Time Temp Pulse Resp B/P B/P Pulse O2 O2 Flow FiO2 Mean Ox Delivery Rate 01/25 0632 98.1 62 22 128/80 95 01/25 0000 Room Air Room Air 01/24 2204 98.3 64 21 132/80 96 01/24 1417 97.8 72 16 144/84 97 Room Air Intake & Output 01/25 1600 01/25 0800 01/25 0000 Intake Total Output Total 200 Balance -200 Output, Urine 200 Patient 80.768 kg Weight Physical Exam General Appearance: Alert, Cooperative, No Acute Distress HEENT: EOMI, Right pupil constricted compared to left Cardiovascular: Regular Rate, Normal S1, Normal S2 Lungs: Clear to Auscultation Abdomen: Normal Bowel Sounds, Soft, No Tenderness Neurological: Speech has some expressive aphasia, Right sided weakness compared to left, with hypertonia on the RLE Current Medications: Current Medications Sig/Yung Start time Last Medication Dose Route Stop Time Status Admin Acetaminophen 1,000 MG Q6P PRN 01/21 2200 AC 01/23 IV 0954 Aspirin Buffered 81 MG DAILY 01/22 900 AC 01/25 PO 0838 Atorvastatin Calcium 80 MG 1700 01/210 AC 01/24 PO 1539 Clopidogrel Bisulfate 75 MG DAILY 01/22 900 AC 01/25 PO 0838 Folic Acid 1 MG DAILY 01/23 900 AC 01/25 PO 0838 Heparin Sodium 5,000 UNIT Q8 01/23 600 AC 01/25 (Porcine) SC 0602 Lorazepam 0 Q1P PRN 01/21 2200 AC IV Multivitamins 1 TAB DAILY 01/23 900 AC 01/25 PO 0838 Thiamine HCl 100 MG DAILY 01/23 900 AC 01/25 PO 0838 Assessment/Plan Assessment: 52YOM with past medical hx of HTN, HLD, PAD and PVD s/p femoral-popliteal bypass , CAD with [place] in 2003 and PCI with RCA event in 2012, small PE in 2016, and severe EtOH dependence, presented to the ED with weakness and aphasia found to be L MCA CVA upon imaging. 1. L MCA stroke * Patient was found to have L MCA territory infart causing R sided hemiplegia and expressive aphasia which continues to improve * Continue PT, OT, and speech therapy as patient continues to show improvement * Continue mechanical chopped and nectar thick liquid as per speech therapy * Plan for discharge to Acute Rehab Facility as patient will need and can tolerate 2. SOB, cough, nasal congestion * Pt has complained of slight difficulty breathing accompanied by cough and nasal congestion and independent of position. However, patient continues to remain afebrile * Continue to monitor as patient is high risk for aspiration. 3. EtOH Dependence * Stable at this time. CIWA score is 0. 4. HTN and HLD * Stable 5. PAD and PVD * Stable. DVT prophylaxis with heparin. 6. CAD s/p [place] and PCI with RCA event * Stable at this time. No tele events. 7. PE * Stable. DVT prophylaxis with heparin. Problem List: 1. CVA (cerebral vascular accident) 2. Left acute arterial ischemic stroke, MCA (middle cerebral artery) 3. EtOH dependence Pain Ratin Pain Location: None Pain Goal: Remain pain free Pain Plan: per pathway Tomorrow's Labs & Rationales: none Basil MIRANDA,Ashlyn 01/25/18 0901: Attending MD Review Statement Attending Statement Attending MD Statement: examined this patient, discuss w/resident/PA/RIB CLOTH KNITTER, agreed w/resident/PA/RIB CLOTH KNITTER, reviewed EMR data (avail), discussed with nursing, reviewed images Attending Assessment/Plan: Patient is fairly impulsive and tries to get out of bed. He is a 52-year-old with a past medical history of hypertension, hyperlipidemia, alcohol abuse who is here with an acute left hemispheric infarct. He is on dual antiplatelet therapy and a modified diet and we are awaiting a bed at acute rehab.
[2018-01-25 12:00] VITALS: BP 128/60
[2018-01-25 15:21] VITALS: BP 132/68
[2018-01-25 22:07] VITALS: BP 134/86
[2018-01-26 06:49] VITALS: BP 132/72
--- NOTE | 2018-01-26 07:08 | PN- Housestaff ---
Daniel Carrasquillo 01/26/18 0707: Subjective Follow-up For: Left MCA Stroke Occlusion of Left ICA Tele-Events Since Last Visit: NSR, 64 Subjective: Patient seen and examined at bedside this morning. Patient claims he has some chest discomfort for which omeprazole was began. Patient is diet has been advanced to soft and honey nectar as per speech and swallow. Patient denies any shortness of breath or chest pain, palpitations, nausea, vomiting. Has been tolerating his p.o. well with normal bowel and bladder movements. Patient has shown significant improvement in his right-side in terms of motor function. Patient continues to have expressive aphasia however has improved with verbalizing certain phrases. Review of Systems Constitutional: Denies: see HPI. Objective Last 24 Hrs of Vital Signs/I&O Vital Signs Date Time Temp Pulse Resp B/P B/P Pulse O2 O2 Flow FiO2 Mean Ox Delivery Rate 01/26 1431 98.5 71 20 144/76 94 Room Air 01/26 1400 75 20 144/80 01/26 1200 81 20 01/26 1000 78 20 01/26 0800 76 20 01/26 0800 Room Air 01/26 0649 98.4 71 20 132/72 95 01/26 0000 Room Air 01/25 2207 98.6 72 18 134/86 96 01/25 1521 97.9 82 20 132/68 94 Intake & Output 01/26 1600 01/26 0800 01/26 0000 Intake Total 600 120 120 Output Total 450 100 Balance 600 -330 20 Intake, Oral 600 120 120 Output, Urine 450 100 Patient 178 lb Weight Physical Exam General Appearance: Alert, Oriented X3, Cooperative, No Acute Distress HEENT: PERRLA, EOMI, Mucous Membr. moist/pink Neck: Supple, No JVD Cardiovascular: Regular Rate, Normal S1, Normal S2 Lungs: Clear to Auscultation, Normal Air Movement Abdomen: Normal Bowel Sounds, Soft, No Tenderness Neurological: SHIRLEY; EOMI Facial droop present right side; able to wrinkle forehead CN intact; facial nerve weakness Alternating movements decreased Strength in RUE 2/5; RLE: 3/5 Strength in LUE 4/5; LLE; 4/5 Reflexes hyperactive Sensation decreased in left upper extremity Extremities: No Clubbing, No Cyanosis, No Edema Vascular: Normal Pulses, Pulses Symmetrical Current Medications: Current Medications Sig/Yung Start time Last Medication Dose Route Stop Time Status Admin Acetaminophen 1,000 MG .STK-MED ONE 01/25 1754 DC IV 01/25 1755 Acetaminophen 1,000 MG Q6P PRN 01/210 AC 01/25 IV 1816 Aspirin Buffered 81 MG DAILY 01/22 09 AC 01/26 PO 0849 Atorvastatin Calcium 80 MG 1700 01/21 2200 AC 01/25 PO 1815 Clopidogrel Bisulfate 75 MG DAILY 01/22 900 AC 01/26 PO 0849 Folic Acid 1 MG DAILY 01/23 09 AC 01/26 PO 0849 Heparin Sodium 5,000 UNIT Q8 01/23 06 AC 01/26 (Porcine) SC 1321 Lorazepam 0 Q1P PRN 01/21 2200 AC IV Multivitamins 1 TAB DAILY 01/23 900 AC 01/26 PO 0849 Omeprazole 40 MG DAILY AC 01/26 0915 AC 01/26 PO 1023 Thiamine HCl 100 MG DAILY 01/23 900 AC 01/26 PO 0849 Assessment/Plan Assessment: 52 year old male with past medical hx of HTN, HLD, PAD and PVD s/p femoral- popliteal bypass, CAD with [place] in 2003 and PCI with RCA event in 2012, small PE in 2015, and severe EtOH dependence, presented to the ED with weakness and aphasia found to be L MCA CVA upon imaging. Patient still awaiting bed for acute rehab. Has been denied by [facility]. Will follow up with [facility] accordingly as per manager case management Justina. Diet advanced to chopped and nector. Problem List: 1. Left MCA Stroke 2. EtOH dependence 3. HTN/HLD 4. PAD/PVD 5. CAD s/p [place] and PCI with RCA event PLAN: * Continue PT/OT/speech therapy as patient showing significant improvement * Diet advanced to chopped and nectar thick liquid as per speech therapy * Continue to follow neurology recommendations * Patient advised to follow up outpatient with vascular surgery * Awaiting bed for acute rehab; willl follow up with case management * Omeprazole given for patients GI discomfort * continue Aspirin, statin, plavix Code Status: Full Code DVTPPx: Heparin Diet: Chopped and Nector Problem List: 1. EtOH dependence 2. Left acute arterial ischemic stroke, MCA (middle cerebral artery) Pain Ratin Pain Location: chest discomfort-possibly GI related Pain Goal: Pain 4 or less Pain Plan: as per pain pathway Tomorrow's Labs & Rationales: cbc bep DVT/Prophylaxis: pharmacological Anil Ga 01/26/18 1327: Attending MD Review Statement Attending Statement Attending MD Statement: examined this patient, discuss w/resident/PA/SECURITY ATTENDANT, agreed w/resident/PA/SECURITY ATTENDANT, reviewed EMR data (avail), discussed with nursing, discussed with case mgmt Attending Assessment/Plan: Stroke- pt is getting better now and plan is to dc him to acute rehab once bed is approved. d/w pt the care plan. d/w case management the care plan.
[2018-01-26 14:00] VITALS: BP 144/80
[2018-01-26 14:31] VITALS: BP 144/76
[2018-01-26 22:08] VITALS: BP 132/78
[2018-01-27 06:33] VITALS: BP 124/72
--- NOTE | 2018-01-27 07:07 | PN- Housestaff ---
Daniel Carrasquillo 01/27/18 0707: Subjective Follow-up For: Left MCA Stroke Left ICA occlusion Tele-Events Since Last Visit: NSR, 74, 0.08, 0.18 Subjective: Patient seen and examined at bedside this morning. Patient denies any complaints at this time. Bed is available in [place] [facility] as per case management. Denies any chest pain, palpitations, shortness of breath today. Patients expressive aphasia significantly improved as well as slight progression of right sided weakness. Attempted to write on whiteboard today with incresaed hand shot grinder operator since admission, however, unable to properly write letters. Review of Systems Constitutional: Denies: see HPI. Objective Last 24 Hrs of Vital Signs/I&O Vital Signs Date Time Temp Pulse Resp B/P B/P Pulse O2 O2 Flow FiO2 Mean Ox Delivery Rate 01/27 0633 98.8 69 20 124/72 98 Room Air 01/26 2208 98.2 75 18 132/78 94 Room Air 01/26 1600 Room Air 01/26 1431 98.5 71 20 144/76 94 Room Air 01/26 1400 75 20 144/80 Intake & Output 01/27 1600 01/27 0800 01/27 0000 Intake Total 50 Output Total Balance 50 Intake, Oral 50 Patient 177 lb Weight Weight Bed scale Measurement Method Physical Exam General Appearance: Alert, Cooperative, Expressive Aphasia Skin: No Rashes, No Breakdown HEENT: Atraumatic, PERRLA Cardiovascular: Regular Rate, Normal S1, Normal S2, No Murmurs Lungs: Clear to Auscultation, Normal Air Movement Abdomen: Normal Bowel Sounds, Soft, No Tenderness Neurological: Expressive Aphasia EOMI; SHIRLEY Strength 2/5 in right upper/lower extremity; sensation decreased in right upper compared to left arm Left upper/ lower extremity strength 4/5 Reflexes hyperactive Extremities: No Clubbing, No Cyanosis, No Edema Vascular: Normal Pulses, Pulses Symmetrical Current Medications: Current Medications Sig/Yung Start time Last Medication Dose Route Stop Time Status Admin Acetaminophen 1,000 MG Q6P PRN 01/21 2200 AC 01/25 IV 1816 Aspirin Buffered 81 MG DAILY 01/22 900 AC 01/27 PO 08 Atorvastatin Calcium 80 MG 1700 01/21 2200 AC 01/26 PO 1608 Clopidogrel Bisulfate 75 MG DAILY 01/22 900 AC 01/27 PO 08 Folic Acid 1 MG DAILY 01/23 900 AC 01/27 PO 0812 Heparin Sodium 5,000 UNIT Q8 01/23 0600 AC 01/27 (Porcine) SC 0532 Lorazepam 0 Q1P PRN 01/21 2200 AC IV Multivitamins 1 TAB DAILY 01/23 0900 AC 01/27 PO 0812 Omeprazole 40 MG DAILY AC 01/26 0915 AC 01/27 PO 0532 Thiamine HCl 100 MG DAILY 01/23 09 AC 01/27 PO 0812 Assessment/Plan Assessment: 52 year old male with past medical hx of HTN, HLD, PAD and PVD s/p femoral- popliteal bypass, CAD with [place] in 2003 and PCI with RCA event in 2012, small PE in 2015, and severe EtOH dependence, presented to the ED with weakness and aphasia found to be L MCA CVA upon imaging. Patient still awaiting bed for acute rehab. Has been accepted at [facility]. Will follow up with case management accordingly pending insurance approval. Problem List: 1. Left MCA Stroke 2. Left Occlusion ICA 3. Alcohol Dependence 4. HTN 5. PAD/PVD 6. CAD s/p [place] and PCI with RCA stent PLAN: * Patient pending transfer to acute rehabiliation in [place]. Will follow with case management accordingly * Continue PT/OT/Speech for now * continue aspirin, statin, plavix * follow any neurology recommendations Code Status: Full Code DVT PPx: Heparin Diet: Chopped + Nector Problem List: 1. EtOH dependence 2. CVA (cerebral vascular accident) Pain Ratin Pain Location: denies pain today Pain Goal: Remain pain free Pain Plan: as per pain pathway Tomorrow's Labs & Rationales: pending discharge Anil Ga 01/27/18 1311: Attending MD Review Statement Attending Statement Attending MD Statement: examined this patient, discuss w/resident/PA/MAINTENANCE MECHANIC 2ND SHIFT, agreed w/resident/PA/MAINTENANCE MECHANIC 2ND SHIFT, reviewed EMR data (avail), discussed with nursing, discussed with case mgmt Attending Assessment/Plan: Stroke- pt rt side weakness and speech is improving. plan is to dc him to rehab once insurance authorization is obtained.
[2018-01-27 14:17] VITALS: BP 126/78
[2018-01-27 22:28] VITALS: BP 134/88
[2018-01-28 06:26] VITALS: BP 116/80
--- NOTE | 2018-01-28 06:46 | PN- Housestaff ---
Daniel Carrasquillo 01/28/18 0646: Subjective Follow-up For: Left MCA Stroke Left ICA Occlusion Tele-Events Since Last Visit: Normal sinus rhythm, 63, 0.10, 0.20 Subjective: Patient seen and examined at bedside this morning. Patient's expressive aphasia significantly improving. Patient claims he has a cough this morning that is nonproductive. Patient denies any fevers chills, nausea or vomiting. Has not had any headaches, dizziness, chest pain palpitations or shortness of breath. Patient bed available at [facility] today. Patient pending discharge. Review of Systems Constitutional: Denies: see HPI. Objective Last 24 Hrs of Vital Signs/I&O Vital Signs Date Time Temp Pulse Resp B/P B/P Pulse O2 O2 Flow FiO2 Mean Ox Delivery Rate 01/28 1126 98.4 68 18 116/80 01/28 0626 98.4 68 18 98 Room Air 01/27 2228 98.3 71 20 134/88 97 Intake & Output 01/28 1600 01/28 0800 01/28 0000 Intake Total Output Total 200 300 150 Balance -200 -300 -150 Number 1 Bowel Movements Output, Urine 200 300 150 Patient 179 lb Weight Physical Exam General Appearance: Alert, Oriented X3, Cooperative, Expressive aphasia Skin: No Rashes, No Breakdown Neck: Supple, No JVD Cardiovascular: Regular Rate, Normal S1, Normal S2 Lungs: Clear to Auscultation, Normal Air Movement Abdomen: Normal Bowel Sounds, Soft, No Tenderness Neurological: Strength 3/5 in right upper extremity and right lower extremity Right sided facial droop Sensation mild decreased in right upper extremity Reflexes hyperreactive bilaterally Gait unassessed Normal speech Extremities: No Clubbing, No Cyanosis, No Edema Assessment/Plan Assessment: 52 year old male with past medical hx of HTN, HLD, PAD and PVD s/p femoral- popliteal bypass, CAD with [place] in 2004 and PCI with RCA event in 2012, small PE in 2016, and severe EtOH dependence, presented to the ED with weakness and aphasia found to be L MCA CVA upon imaging. Patient has open bed at acute rehabilitation today. Will be discharged today. Problem List: 1. Left MCA Stroke 2. Left Occlusion ICA 3. Alcohol Dependence 4. HTN 5. PAD/PVD 6. CAD s/p [place] and PCI with RCA stent PLAN: * Discharge to acute rehabilitation today. * Continue aspirin, statin, plavix Code Status: Full Code DVT PPx: Heparin Diet: Chopped + Nector Problem List: 1. Left acute arterial ischemic stroke, MCA (middle cerebral artery) Pain Ratin Pain Location: no pain Pain Goal: Remain pain free Pain Plan: as per pain pathway Tomorrow's Labs & Rationales: discharged DVT/Prophylaxis: mechanical, pharmacological Anil Ga 01/28/18 1344: Attending MD Review Statement Attending Statement Attending MD Statement: examined this patient, discuss w/resident/PA/QUALITY INSPECTOR, agreed w/resident/PA/QUALITY INSPECTOR, reviewed EMR data (avail), discussed with nursing, discussed with case mgmt Attending Assessment/Plan: Pt being dced to acute rehab for Stroke with rt side weakness and expressive aphasia.
[2018-01-28 11:26] VITALS: BP 116/80
== END 2018-01-28 12:45 | DRG 45 ==
LOC: ERH 16:55 → ERHI 18:56 → 1NO 18:56 → ENRESERV 19:50 → ENTRNSPT 20:39 → EDTRNSPT 20:47 → EDTRNSPTSTS 20:47 → 1NO 20:48 → CMPTRNSPT 20:58 → 1NO 21:09 → ENPENDDIS 01-28 11:07 → 1NO 01-28 12:45
PROVIDERS: Internal Medicine Interventional Cardiology; Physical Medicine & Rehabilitation Pain Medicine; Student in an Organized Health Care Education/Training Program
DX: I63.512 Cerebral infarction due to unspecified occlusion or stenosis of left middle cerebral artery (principal); I63.232 Cerebral infarction due to unspecified occlusion or stenosis of left carotid arteries; I10 Essential (primary) hypertension; E78.5 Hyperlipidemia, unspecified; I25.2 Old myocardial infarction; J44.9 Chronic obstructive pulmonary disease, unspecified; I73.9 Peripheral vascular disease, unspecified; Z91.14 Patient's other noncompliance with medication regimen; R47.01 Aphasia; G81.91 Hemiplegia, unspecified affecting right dominant side; Z86.711 Personal history of pulmonary embolism; I69.391 Dysphagia following cerebral infarction; R13.10 Dysphagia, unspecified; F10.239 Alcohol dependence with withdrawal, unspecified; R29.703 NIHSS score 3; Z79.82 Long term (current) use of aspirin; Z79.51 Long term (current) use of inhaled steroids; Z98.61 Coronary angioplasty status; I70.219 Atherosclerosis of native arteries of extremities with intermittent claudication, unspecified extremity; F17.210 Nicotine dependence, cigarettes, uncomplicated; Z95.1 Presence of aortocoronary bypass graft
CPT/HCPCS: 1NSP; 36415; 71045; 74230; 81001; 82436; 93005; 93010; 93306; 96105-GN; 97110-GO; 97112-GO; 97116-GO; 97161-GP; 97165-GO; 97530-GO; 99291; J0131; J1644; J3490; J7060